=== PATIENT | male | born 1955 | race Caucasian/White ===

== ENCOUNTER 2016-08-01 19:15 | Observation (INO) | payer MEDICAID, OTHER ==
[~2016-08-01] VITALS: Ht 177.8 cm; Wt 79.9 kg
[~2016-08-01 19:15] MED LIST: ASPI325T32 PO; CARV3.122 PO; CEFD300C3 PO; FUR20 PO; LISI-571 PO; POTA20TA16 PO
[2016-08-01 19:20] VITALS: BP 132/103; PULSE 100; RESP 22; O2SAT 95
--- NOTE | 2016-08-01 19:21 | ED.REPORT ---
HPI-Chest Pain 40 and Over Date of Service Aug 01, 2016 ED Provider: Newton Winslow DO 60 year old male with a history of non-ischemic cardiomyopathy, CHF, and methamphetamine presents to the ED escorted by [facility] to be declared fit for longterm complaining of SOB and chest pain onset just prior to arrival. Symptoms onset after climbing a set of stairs at the longterm. Officer reports that the longterm nurse noticed elevated blood pressure in the 130/ range while examining the patient. Patient admits that he has been out of his medications for several weeks. Nursing Notes Stated Complaint: FIT FOR HALFWAY Chief Complaint: Chest Pain Nursing Notes Reviewed: Yes Allergies: Coded Allergies: No Known Allergies (Unverified Allergy, Unknown, 08/01/16) Scheduled Aspirin (Aspirin) 325 Mg Tablet 325 MG PO DAILY Carvedilol (Carvedilol) 3.125 Mg Tablet 3.125 MG PO BIDWM Cefdinir (Cefdinir) 300 Mg Capsule 300 MG PO BID Furosemide (Furosemide) 20 Mg Tab 20 MG PO DAILY Lisinopril (Lisinopril) 5 Mg Tablet 2.5 MG PO DAILY Potassium Chloride (Potassium Chloride) 20 Meq Tab.er.prt 20 MEQ PO DAILY General Time Seen by MD: 19:20 Chief Complaint Shortness of breath Hx Obtained From: Patient, Police Arrived By: Police Sudden in Onset?: Yes Onset Occurred: Just prior to arrival Symptom Duration: Since onset Associated with: Denies: Fatigue, Fever, Nausea, Vomiting Pertinent Negative: Pt denies other symptoms Context Related History: Reports: Congestive heart failure Similar Sx Previous: No Past Medical History Past Medical History Non-ischemic cardiomyopathy Reports: Congestive heart failure Past Surgical History 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 Smoking History Former Smoker Social History Alcohol Use: Denies alcohol use Drug Use: Meth Review of Systems Constitutional: Denies: Chills, Fever Respiratory: Reports: Shortness of breath, Denies: Non-productive cough Cardiovascular: Denies: Chest pain GI: Denies: Abdominal pain, Diarrhea, Nausea, Vomiting Skin: Denies Diaphoresis Complete sys rev & neg: except as marked. Physical Exam Initial Vital Signs Vital Signs (First) Date Time Temp Pulse Resp B/P Pulse Ox O2 Delivery O2 Flow Rate FiO2 08/01/16 19:20 36.0 100 22 132/103 95 Room Air Initial VS: Reviewed Head / Eyes: Atraumatic, Normocephalic Neck: Supple, Non-tender, Full range of motion Extremities: Vascular intact, Neuro intact, No swelling, No tenderness Skin: Warm, Dry, No cyanosis Neurologic: Alert, Oriented, Nonfocal General/Constitutional: Awake, Alert, Well developed, Well nourished Respiratory / Chest: Breath sounds NL, Breath sounds = bilat, No respiratory distress, No rales, No rhonchi, No wheezing, No stridor, No chest tenderness Cardiovascular: Heart rate NL, Regular rhythm, Heart sounds NL, No murmurs, Peripheral circulation NL, Pulses = bilaterally, No gross BP differential Abdomen: Soft, Non-tender, No guarding, No rebound, No distention Interpretation & Diagnostics Lab Results Interpretation Result Diagram: 08/01/16192708/01/161927 Test 08/01/16 19:28 White Blood Count 7.8th/mm3 (3.8-10.1) Red Blood Count 4.82mil/mm3 (4.40-5.80) Hemoglobin 15.8g/dL (13.8-17.2) Hematocrit 46.0% (41.0-50.0) Mean Corpuscular Volume 95.4fL (81-100) Mean Corpuscular Hemoglobin 32.8pg (27.0-35.0) Mean Corpuscular Hemoglobin Concent 34.3% (32.0-37.0) Red Cell Distribution Width 13.7% (12.3-15.4) Platelet Count 323bil/L (150-400) Neutrophils (%) (Auto) 43.5% (40-74) Lymphocytes (%) (Auto) 35.8% (14-46) Monocytes (%) (Auto) 14.2% (4-12) Eosinophils (%) (Auto) 4.9% (0-5) Basophils (%) (Auto) 1.2% (0-3) Sodium Level 138mEq/L (134-144) Potassium Level 4.0mEq/L (3.5-5.2) Chloride Level 103mEq/L (97-108) Carbon Dioxide Level 21mmol/L (18-29) Blood Urea Nitrogen 14mg/dL (6-24) Creatinine 0.86mg/dL (0.76-1.27) Estimat Glomerular Filtration Rate 97mL/min (>59) Glucose Level 142mg/dL (60-99) Calcium Level 8.7mg/dL (8.5-10.1) Magnesium Level 1.8mg/dL (1.6-2.6) Total Bilirubin 1.0mg/dL (0.0-1.2) Aspartate Amino Transf (AST/SGOT) 119U/L (0-50) Alanine Aminotransferase (ALT/SGPT) 106U/L (0-44) Alkaline Phosphatase 106U/L (25-160) Troponin T 0.024ug/L (0.0-0.011) Pro-B-Type Natriuretic Peptide 7445pg/mL (0-210) Total Protein 7.3g/dL (6.4-8.4) Albumin 3.2g/dL (3.4-5.0) ECG Interpretation ECG Interpretation: Significant LVH with strain pattern Anterior ST elevation as present on prior ECG's Time: 19:29 Interpreted by: ED physician CBC Interpretation CBC normal Cardiac / Vascular Lab Interp Cardiac markers abnormal X-Ray Chest Interpretation Chest Xray Interpretation: IMPRESSION: Recurrent or persistent left lower lobe disease currently with minimal amount of effusion and infiltrate consistent with pneumonia. Dictated by: Pasquale Leigh M.D. on 08/01/2016 at 19:55 Approved by: Pasquale Leigh M.D. on 08/01/2016 at 19:55 View: Portable, 1 view Interpretation / Wet Read by: Interpret - Radiologist Re-Eval/Medical Decision Med Decision/Clinical Course 60-year-old male with a history of cardiomyopathy, noncompliance and methamphetamine abuse presents with exertional dyspnea and chest pain. He was arrested today. He had to climb about 30 stairs to get up to the longterm cell. When he got to the top is very short of breath and some chest tightness. An officer brought him in to be cleared for longterm. His pain had resolved prior to presentation although she was mildly short of breath. On examination he appears chronically ill but in no distress. I do not appreciate crackles or JVD. No overt signs of heart failure. EKG does not look normal at all however is unchanged from prior EKGs. Again he is not having any pain at this time so I will not pull the trigger on cathing him. He states he would not want to be cathed anyways. laboratory work showed an elevated troponin. Looks like he was discharged with a normal troponin while back. Taking this and account we will admit him for rule out. As it were he has not been on his medications for the last 2 weeks most likely oro this is playing a role. He was given nitroglycerin aspirin and Lovenox in the ED. He was admitted in stable condition pain free. Source of Hx: Old records Time of Eval: 20:47 Re-Evaluation/Progress Note: Patient is pain free. Discussed lab and radiology results and need to admit. Patient understands and agrees to the plan. All other questions addressed. Consultation : Referral / Consult Name: Barbara Jameson MD Consulted With: Hospitalist Call Returned at: 20:45 Boxcar Weigher: Agrees with eval, Agrees with plan, Accepts admit Counseled Regarding: Diagnosis, Lab results, Need for admission Discharge & Departure Primary Impression: Chest pain Chest pain type: chest pain due to myocardial ischemia Qualified Code: I20.9 - Angina pectoris, unspecified Additional Impressions: Shortness of breath Elevated troponin Disposition: ADMITTED TO HOSPITAL Discharge Condition All VS Reviewed: Yes Condition: Stable Referrals: NOPCP (PCP) Scribe Attestation Portions of this note were transcribed by Mahamed Velazquez. I, Dr. Winslow, personally performed the history, physical exam and medical decision-making; I reviewed and confirmed the accuracy of the information in the transcribed note. Signed by: Mahamed Velazquez. 08/01/2016, 20:50 Newton Winslow DO Aug 01, 2016 19:21 MAHAMED VELAZQUEZ Aug 01, 2016 19:32
[2016-08-01 19:47] LABS: BASOPHILS % (AUTO) 1.2 % (0-3); EOSINOPHILS % (AUTO) 4.9 % (0-5); MONOCYTES % (AUTO) 14.2 % (4-12); Mean Corpuscular Hemoglobin 32.8 pg (27.0-35.0); Mean Corpuscular Volume 95.4 fL (81-100); NEUTROPHILS % (AUTO) 43.5 % (40-74); Platelet Count 323 bil/L (150-400)
--- NOTE | 2016-08-01 19:57 | DRSVH ---
PROCEDURE: X-RAY CHEST ONE VIEW, PORTABLE ([id number]) INDICATIONS: dyspnea TECHNIQUE: One view of the chest was acquired. COMPARISON: [facility], CR, XR CHEST 2VW, 04/29/2016, 9:49. FINDINGS: Surgical changes and devices: playground monitor leads are seen over the chest. Lungs and pleura: The right lung is clear. The left lung shows improved but persistent abnormality at the left base or recurrent infiltrate and small effusion. Left upper lung is clear. Mediastinum: Mediastinal contours appear normal. Heart size is normal. Bones and chest wall: No suspicious bony lesions. Overlying soft tissues appear unremarkable. IMPRESSION: Recurrent or persistent left lower lobe disease currently with minimal amount of effusion and infiltrate consistent with pneumonia. Dictated by: Pasquale Leigh M.D. on 08/01/2016 at 19:55 Approved by: Pasquale Leigh M.D. on 08/01/2016 at 19:55
[2016-08-01 20:09] LABS: TROPONIN T 0.024 ug/L (0.0-0.011)
[2016-08-01 20:21] LABS: Magnesium 1.8 mg/dL (1.6-2.6)
[2016-08-01] MEDS ORDERED: Nitroglycerin 2% 1 Gm Ointment TOPICAL ONE (20:40)
[2016-08-01 20:51] VITALS: BP 130/112; PULSE 97; RESP 22; O2SAT 94
[2016-08-01] MEDS ORDERED: Ondansetron 2 mg/mL 2 mL Inj IVPUSH PRN (21:10)
[2016-08-01] MEDS ORDERED: Alum-Mag Hydrox-Simeth 30 mL Suspension PO PRN (21:10)
[2016-08-01] MEDS ORDERED: Atropine 1 mg/10 mL (Code) Syringe IVPUSH PRN (21:10)
[2016-08-01] MEDS ORDERED: Senna-Docusate 8.6-50 mg Tablet PO PRN (21:10)
[2016-08-01] MEDS ORDERED: Polyethylene Glycol (PEG) 17 Gm Powder PO PRN (21:10)
[2016-08-01 21:15] VITALS: BP 125/95; PULSE 90; RESP 16; O2SAT 95
[2016-08-01 21:44] VITALS: BP 133/91; PULSE 93; RESP 20; O2SAT 98
[2016-08-01] MEDS ORDERED: Furosemide 10 mg/mL 2 mL Inj IVPUSH ONE (22:40)
--- NOTE | 2016-08-01 22:41 | PCM.HPMED ---
Subjective Date of Service Aug 01, 2016 Primary Provider: Admitting Physician: Primary Care Physician: Hernandez Attending Physician: Chief Complaint: Chest pain History of Present Illness: 60 year old with hx of hepatitis C, chronic chf with mod-severe reduced EF, 50 pack year hx of smoking, and hx of methamphetamine abuse presents to ED due to acute substernal chest pain and dyspnea without radiation. Pt was being processed into the local senior care and states that after he climbed 20 stairs he had a mod-severe chest pain with lightheadedness, dizziness, and cold sweat. Pt has never experienced this pain and reports that he has not been taking his home medications as he ran out of them a few months back. Pt is unable to identify exactly when he ran out of his medications. On arrival in the ED he was given nitro and aspirin which relieved the pain. CXR was suspicious for LLL consolidation without effusion and pt does report some recent cough with sputum. He also describes increasing orthopnea and frequent episodes of PND. Pt denies other ROS including fever, night sweats, chills, or general malaise. His last appointment for cardiology was with Dr Chou in October 2014. His most recent ECHO was when he was admitted in April 2016 for CHF exacerbation; EF= 20-25%. He has not been taking his Hepatitis medications. There is no record in Pending sale to [facility] for office appointments with Dr. Hickman. Review of Systems: Complete review of systems performed. Pertinent positives and negatives per HPI , all others reviewed and are negative. Allergies Coded Allergies: No Known Allergies (Unverified Allergy, Unknown, 08/01/16) Home Medications Aspirin (Aspirin) 325 Mg Tablet 325 MG PO DAILY Carvedilol (Carvedilol) 3.125 Mg Tablet 3.125 MG PO BIDWM Cefdinir (Cefdinir) 300 Mg Capsule 300 MG PO BID Furosemide (Furosemide) 20 Mg Tab 20 MG PO DAILY Lisinopril (Lisinopril) 5 Mg Tablet 2.5 MG PO DAILY Potassium Chloride (Potassium Chloride) 20 Meq Tab.er.prt 20 MEQ PO DAILY Pt was started on Aldactone and 2 years ago by cardiology but unsure if he ever took it PMH Cardiomyopathy, unspecified Hepatitis C Methamphetamine abuse Chronic systolic CHF Family History Grandfather of [place] at age of 80 Social History Hx Alcohol Use: Yes Alcoholic Drinks Per Day: Pt states it is not everyday but does not define it Hx Substance Use: Yes (h/o methamphetamine use ) Hx Tobacco Use: Yes Smoking Status: Former Smoker (35-40 years at 1.5 ppd) Exam Vital Signs Vital Sign - Last Date Time Temp Pulse Resp B/P Pulse Ox O2 Delivery O2 Flow Rate FiO2 08/01/16 20:51 97 22 130/112 94 Room Air 08/01/16 19:20 36.0 Exam General: No acute distress; flat affect HEENT: Normocephalic, atraumatic. PERRLA Anicteric sclerae Neck: Supple with full range of motion. No jugular venous distension. No bruits. No lymphadenopathy or thyromegaly. Cardiovascular: Tachy without murmur; radial pulses intact; difficult to posterior tibial Pulmonary: Course breath sounds with diffuse crackles and very mild inspiratory wheezing Abdomen: Bowel tones present. Soft, nontender, nondistended Extremities: Clubbing on all fingers bilaterally, no edema, or lymphadenopathy appreciated. Skin: Normal temperature, mild decrease in turgor Neurological: CN 2-12 intact, sensation normal throughout; muscle strength 5/5 , Psychiatric: flat mood and affect. Alert and oriented to person, place, and time. Lab and Diagnostics Result Diagram: 08/01/16192708/01/161927 X-Rays, CTs and MRIs Chest X-ray IMPRESSION: Recurrent or persistent left lower lobe disease currently with minimal amount of effusion and infiltrate consistent with pneumonia. Dictated by: Pasquale Leigh M.D. on 08/01/2016 at 19:55 12-lead ECG Apparent Left ventricular hypertrophy; ST elevations in anterior leads, not changed from previous EKG Assessment & Plan 60 year old male with cardiomyopathy and severely reduced EF Possible acute NSTEMI; present on admission; ongoing - Presenting with classic substernal chest pain with diaphoresis and dizziness but without left arm radiation - Trend troponin and check CKMB; Mg phos etc are normal - Pt already received Lovenox in ED - Starting on heparin drip pending confirmation with second trop - ECHO tomorrow - Aspirin received in ED - Carvedilol home dose started - Lisinopril started - Nitro paste in place with sublingual for additional discomfort - EKG in AM - Currently on O2 via Nasal canula - Recheck BMP tomorrow morning Possible Acute on Chronic systolic heart failure: present on admission; ongoing - BNP elevated above last with normal kidney function; however, pt looks slightly dry on examination with decreased skin turgor; mod-severe clubbing of the fingernails - Last EF was 20-25% - CXR looks surprisingly clear as he has not been taking his meds, including two diuretics; no cephalization or diffuse edema present - No edema in lower extremities or JVD - Restarting lisinopril, carvedilol, and pending BP after these meds are started , also recommend restarting Aldactone - Aspirin started for #1; - ECHO tomorrow morning - Cautious diuretics with 20mg IV Lasix tonight Hx of Hepatitis C with acute on chronic transaminitis - Pt states he contracted this from a transfusion a number of years ago - Consider ID consult in AM - Ordering viral load for HepC - Will lightly consider US with liver protocol - CMP in am Acute Hypertension; present on admission; ongoing - On exam BP was 133/100; given antihypertensives as above; will reassess in a couple hours Hyperglycemia - Likely due to non fasting as there is no record of diabetes - A1c pending - Heart healthy/diabetic diet Questionable pneumonia - Pt does not have a white count, left shift, or fever; he is tachy and intermittently dyspneic which I do not believe is related to an infection but rather his chest pain - Pt does have a chronic cough which sounds to be related to his CHF - Consider starting abx if fever or wbc change or there is some hint at infection - Repeat CBC in am Hx of methamphetamine abuse - States that he has not used in many years. He quit before he quit smoking, which was 5 years ago Dispo: This patient is being admitted to general medical floor for observation due to chest pain described above; anticipated stay is < 2 midnights but could be longer pending diagnostics tomorrow Attending Statement Pt seen and examined by myself and agree with above plan. Joesph Gonzáles DO Aug 01, 2016 22:41 Barbara Jameson MD Aug 02, 2016 18:51
[2016-08-01] MEDS: Sodium Chloride LOK Flush 10 mL Syringe IVFLUSH SCH (23:21)
[2016-08-02] VITALS (9 sets, daily range): BP systolic 112–133; BP diastolic 73–88; PULSE 73–114; RESP 16–20; O2SAT 96–99
[2016-08-02 01:34] LABS: COLOR,URINE YELLOW (YELLOW)
[2016-08-02 01:35] LABS: APPEARANCE,URINE CLEAR (CLEAR,HAZY); OCCULT BLOOD,URINE NEGATIVE (NEGATIVE)
[2016-08-02 05:39] LABS: EOSINOPHILS % (AUTO) 6.4 % (0-5); MONOCYTES % (AUTO) 10.6 % (4-12); Mean Corpuscular Hemoglobin 33.1 pg (27.0-35.0); Mean Corpuscular Volume 95.6 fL (81-100); NEUTROPHILS % (AUTO) 31.7 % (40-74)
[2016-08-02 06:04] LABS: Platelet Count 297 bil/L (150-400)
[2016-08-02 06:45] LABS: Magnesium 1.7 mg/dL (1.6-2.6)
[2016-08-02] MEDS: Sodium Chloride LOK Flush 10 mL Syringe IVFLUSH SCH ×3 (09:25→19:58)
--- NOTE | 2016-08-02 14:55 | PCM.PNMED ---
Subjective Date of Service Aug 02, 2016 Subjective Patient seen and examined. Patient does not have any complaints, patients chest pain has resolved and patient is resting comfortably. Exam Vital Signs Vital Sign - Last Date Time Temp Pulse Resp B/P Pulse Ox O2 Delivery O2 Flow Rate FiO2 08/02/16 14:23 36.6 78 18 123/73 96 Nasal Cannula 2.00 Intake and Output 08/01/16 08/01/16 08/02/16 Cumulative From/Thru 15:00 23:00 07:00 08/01/16 19:20 - 08/02/16 06:17 Intake Total 625 ml 625 ml Output Total 850 ml 850 ml Balance -225 ml -225 ml Intake Oral 625 ml 625 ml Output Urine Total 850 ml 850 ml # Bowel Movements 0 0 Lab and Diagnostics Result Diagram: 08/02/1615 08/02/16 0515 X-Rays, CTs and MRIs Chest X-ray IMPRESSION: Recurrent or persistent left lower lobe disease currently with minimal amount of effusion and infiltrate consistent with pneumonia. Dictated by: Pasquale Leigh M.D. on 08/01/2016 at 19:55 12-lead ECG Apparent Left ventricular hypertrophy; ST elevations in anterior leads, not changed from previous EKG Assessment & Plan 60 year old male with cardiomyopathy and severely reduced EF Possible acute NSTEMI; present on admission; ongoing - Presenting with classic substernal chest pain with diaphoresis and dizziness but without left arm radiation - Trend troponin and check CKMB; Mg phos etc are normal - Pt already received Lovenox in ED - ECHO tomorrow - Aspirin received in ED - Carvedilol home dose started - Lisinopril started - Nitro paste in place with sublingual for additional discomfort - EKG in AM - Currently on O2 via Nasal canula - Recheck BMP tomorrow morning Possible Acute on Chronic systolic heart failure: present on admission; ongoing - BNP elevated above last with normal kidney function; however, pt looks slightly dry on examination with decreased skin turgor; mod-severe clubbing of the fingernails - Last EF was 20-25% - CXR looks surprisingly clear as he has not been taking his meds, including two diuretics; no cephalization or diffuse edema present - No edema in lower extremities or JVD - Restarting lisinopril, carvedilol, and pending BP after these meds are started , also recommend restarting Aldactone - Aspirin started for #1; - ECHO tomorrow morning - Cautious diuretics with 20mg IV Lasix tonight Hx of Hepatitis C with acute on chronic transaminitis - Pt states he contracted this from a transfusion a number of years ago - Consider ID consult in AM - Ordering viral load for HepC - Will lightly consider US with liver protocol - CMP in am Acute Hypertension; present on admission; ongoing - On exam BP was 133/100; given antihypertensives as above; will reassess in a couple hours Hyperglycemia - Likely due to non fasting as there is no record of diabetes - A1c pending - Heart healthy/diabetic diet Questionable pneumonia - Pt does not have a white count, left shift, or fever; he is tachy and intermittently dyspneic which I do not believe is related to an infection but rather his chest pain - Pt does have a chronic cough which sounds to be related to his CHF - Consider starting abx if fever or wbc change or there is some hint at infection - Repeat CBC in am Hx of methamphetamine abuse - States that he has not used in many years. He quit before he quit smoking, which was 5 years ago Dispo: This patient is being admitted to general medical floor for observation due to chest pain described above; anticipated stay is < 2 midnights but could be longer pending diagnostics tomorrow Josh Woodard MD Aug 02, 2016 14:55
--- NOTE | 2016-08-02 15:23 | NUR ---
Social Work Screening D: EMR Reviewed. Pt is a 60Y old male Armond for Dyspnea/Positive Troponin. Insurance is [facility]. No PCP listed. Readmission score 5/8-High. Per EMR Pt was being processed at [facility] when he experienced chest pain and was transport to [facility]. Pt has a hx of methamphetamine use but has been clean for over 5 years. Pt discussed in Rounds. Pt also has CHF. HITESH text paged Hospitalist requesting referral to the CHF clinic. HITESH met with Pt at bedside, SW role explained. Pt confirms he does not have a PCP but is open to establishing care at the [facility] in [place]. Pt confirms he has been clean and sober for over 5 years. Pt denies any needs. Pt reports he will return home at discharge. HITESH contacted CM Siderographer and requested appointment be scheduled at the [facility] in [place] for hospital follow up and an establishing care appointment A: Pt who is independent at baseline P: Pt denies any needs. Pt reports he will return home at discharge. HITESH contacted CM Siderographer and requested appointment be scheduled at the [facility] in [place] for hospital follow up and an establishing care appointment YUAN Harrell
--- NOTE | 2016-08-02 16:10 | DRSVH ---
[facility] [address] [place] [address] Echocardiogram Report Name: TODD VASQUES JStudy Date: 08/02/2016 Height: 70 in Hospital Exam Location: [facility] Weight: 168 lb Gender: Male BSA: 1.9 m2 : 1955 Age: 60 yrs BP: 127/78 mmHg Reason For Study: CHEST PAIN Ordering Physician: Performed By: Josh Smith Interpretation Summary The left ventricle is markedly dilated. The ejection fraction is estimated to be 20-25%. There has been no significant change in LV EF since the previous study. There is severe global hypokinesis of the left ventricle. Spontaneous contrast is noted consistent with low flow state. Assessment of diastolic parameters indicates a restrictive filling pattern of the left ventricle consistent with significantly elevated filling pressures. The right ventricle is normal size. Right ventricular systolic function is mildly reduced. There is moderate mitral regurgitation. Compared to the prior echo study, there has been an increase in the severity of mitral regurgitation. There is mild tricuspid regurgitation. Compared to the prior echo exam, there has been no change in TR severity. The right ventricular systolic pressure is estimated at 34 mmHg assuming a right atrial pressure of 3 mm Hg. Procedure: A two-dimensional transthoracic echocardiogram with color flow and Doppler was performed. The study quality was technically good. There is no prior echocardiogram noted for this patient. The patient was in normal sinus rhythm during the exam. Left Ventricle: There is normal left ventricular wall thickness. The left ventricle is markedly dilated. There has been no significant change since the previous study. There is no thrombus. A false chord is noted (normal variant). Spontaneous contrast is noted consistent with low flow state. The ejection fraction is estimated to be 20-25%. There has been no significant change since the previous study. There is severe global hypokinesis of the left ventricle. Assessment of diastolic parameters indicates a restrictive filling pattern of the left ventricle consistent with significantly elevated filling pressures. The E/E' ratio is abnormal. The deceleration time of the mitral E wave is shortened, with a value < 160 msec. Right Ventricle: The right ventricle is normal size. Right ventricular systolic function is mildly reduced. Atria: The left atrium is severely dilated. The left atrium has remained unchanged in size since the prior echo exam. The right atrium is mildly dilated. The right atrium has remained unchanged in size since the prior echo exam. The interatrial septum is intact with no evidence for an atrial septal defect. Mitral Valve: The mitral valve leaflets are slightly calcified. There is moderate mitral regurgitation. Compared to the prior echo study, there has been an increase in the severity of mitral regurgitation. Aortic Valve: The aortic valve is trileaflet. The aortic valve opens well. There is no aortic valve stenosis. No aortic regurgitation is present. Tricuspid Valve: The tricuspid valve is normal. There is mild tricuspid regurgitation. The right ventricular systolic pressure is estimated at 34 mmHg assuming a right atrial pressure of 3 mm Hg. Compared to the prior echo exam, there has been no change in TR severity. Compared to the prior echo exam, there has been no change in the severity of pulmonary hypertension. Pulmonic Valve: The pulmonic valve is normal in structure and function. There is trace pulmonic regurgitation. Great Vessels: The aortic root is normal size. The dimensions of the ascending aorta are normal. The pulmonary artery is normal size. The IVC is of normal diameter and collapses greater than 50% with a sniff. This suggests a low right atrial pressure of 3 mm Hg. Pericardium/ Pleura There is no pericardial effusion. There is no pleural effusion. MMode/2D Measurements & Calculations LVIDd: 8.0 cmLA dimension: 4.6 cm RA long axis: 5.1 cm Ao root diam: 3.2 cm LVIDs: 7.1 cm Aortic Jxn: 2.4 cm FS: 11.0 % LA A2 area: 39.6 cm RA area: 21.9 cm asc Aorta Diam EPSS: 1.9 cm LA A4 area: 32.5 cm RA vol: 79.1 ml IVSd: 0.88 cmLA length (vol) RA : 40.8 ml/m2 Ao Arch Diam LVPWd (Proximal trans.) : 0.9cm LA vol: 143.1 ml LA vol index IVC diam: 2.0 cm EDV(MOD-sp2) LV gonsalves. diameter/BSA LV sys. diameter/BSA RVD1 (basal): 4.0 cm : 267.3 ml (cm/m^2): 4.1 (cm/m^2): 3.7 RVD2 (mid) : 3.4 cm Doppler Measurements & Calculations Ao V2 max MV E max marshall MV E/A: 2.6 TR max marshall : 124.9 cm/sec : 90.9 cm/sec Med Peak E' Marshall : 277.0 cm/sec Ao max PG MV A max marshall TR max PG : 6.2 mmHg : 35.5 cm/sec E/E' med: 18.7 : 30.7 mmHg Ao mean PG MV A dur: 0.16 sec PA V2 max : 3.8 mmHg : 72.4 cm/sec PA mean PG PA Accel Time : 0.09 sec MV dec time Ao V2 mean PA V2 mean : 0.11 sec : 94.3 cm/sec : 53.3 cm/sec Ao V2 VTI: 19.5 cm PA pr(Accel) : 35.7 mmHg Reading Physician:PM
--- NOTE | 2016-08-02 18:49 | NUR ---
ECHO/EKG P-[facility] I- ECHO and EKG done today E- ECHO showed EJ of 20-25%. EKG SR 74, LLB, PVC's
[2016-08-03 00:25] VITALS: BP 107/79; PULSE 88; RESP 17; O2SAT 97
[2016-08-03 05:12] VITALS: BP 118/77; PULSE 85; RESP 17; O2SAT 96
--- NOTE | 2016-08-03 07:33 | NUR ---
Cardiac Pt denies CP. C/O SOB. SPO2 mid-high 90s. No S/Sx distress noted. Pt sleeping most of the shift. No overt complications noted.
[2016-08-03 08:00] VITALS: PULSE 80
[2016-08-03] MEDS: Sodium Chloride LOK Flush 10 mL Syringe IVFLUSH SCH (08:28)
[2016-08-03 10:21] VITALS: BP 105/69; PULSE 71; RESP 18; O2SAT 95
--- NOTE | 2016-08-03 12:27 | PCM.DICHF ---
CHF Discharge Instructions Date of Service: Aug 01, 2016 Dates of Hospitalization Date of Hospital Admission Aug 01, 2016 at 21:23 Date of Discharge: Aug 03, 2016 Providers Admitting Physician: Barbara Jameson MD Primary Care Physician: Hernandez Attending Physician: Barbara Jameson MD Diagnosis at Time of Discharge Diagnosis at time of discharge chest pain Problems: Labs Ejection Fraction Laboratory Tests Test Range/Units 08/01/16 19:28 08/02/16 05:15 08/02/16 19:49 Pro-B-Type Natriuretic Peptide 0-210 pg/mL 7445 Sodium Level 134-144 mEq/L 136 Potassium Level 3.5-5.2 mEq/L 4.1 Chloride Level 97-108 mEq/L 101 Carbon Dioxide Level 18-29 mmol/L 23 Blood Urea Nitrogen 6-24 mg/dL 14 Creatinine 0.76-1.27 mg/dL 0.70 Estimat Glomerular Filtration Rate >59 mL/min 123 Glucose Level 60-99 mg/dL 124 Calcium Level 8.5-10.1 mg/dL 8.3 Magnesium Level 1.6-2.6 mg/dL 1.7 Total Bilirubin 0.0-1.2 mg/dL 0.8 Aspartate Amino Transf (AST/SGOT) 0-50 U/L 96 Alanine Aminotransferase (ALT/SGPT) 0-44 U/L 87 Alkaline Phosphatase 25-160 U/L 104 Total Creatine Kinase 21-232 U/L 125 Creatine Kinase MB 0.0-10.4 ng/mL 6.6 Creatine Kinase MB % 0.0-5.0 % 5.3 Total Protein 6.4-8.4 g/dL 6.3 Albumin 3.4-5.0 g/dL 2.8 Triglycerides Level 0-149 mg/dL 76 Cholesterol Level 100-199 mg/dL 155 LDL Cholesterol, Calculated 0-99 mg/dL 56.800 VLDL Cholesterol mg/dL 15.200 HDL Cholesterol >39 mg/dL 83 Cholesterol/HDL Ratio 0.0-4.4 1.87 Thyroid Stimulating Hormone (TSH) 0.450-4.500 uIU/mL 2.830 Troponin T 0.0-0.011 ug/L 0.024 Discharge Medications Other Medication Instructions You have received instructions on the medications your physician has prescribed at discharge. A list of these medications has been provided to you. Keep this and a list of all current medications with you. Keep the dates when you received the Flu and Pneumococcal (Pneumonia) Vaccines. Last known date of receiving Flu Vaccine declines Last known date of receiving Pneumococcal (Pneumonia) Vaccine denies Diet CHF Discharge Diet: Fluid restriction, Low fat, Low Sodium Diet Instructions CHF Low Salt diet ( 2 grams or less sodium/day) Choose foods and drinks with low or no salt. Remove salt shaker from the table. Read Nutritional Facts labels. Activity CHF Discharge Activity: Be up and about Weight Monitoring 1. Weigh yourself every day at the same time and write it down. 2. Take your weight log to your doctor visits. 3. Call your doctor if you gain 3-5 pounds over 2-3 days. 4. Your weight today is 176.15 lbs. Additional Instructions Smoking--Tobacco Use If you smoke, you are strongly encouraged to stop. If you have recently quit smoking, CONGRATULATIONS. For further information to stop smoking or to remain smoke-free, Follow Up Plan Follow Up Plan You will need to follow up with a doctor after you leave the hospital. Social work is giving you possibilities of doctors that you can follow up with. Cardiology Follow-up Provider: 1 week Report or call your Doctor REPORT TO YOUR DOCTOR OR SEEK MEDICAL ATTENTION: *Shortness of breath or have more difficulty breathing. *Swelling of your feet, ankles, hands or abdomen. *Feeling tired with normal activity or experiencing dizziness or fainting. *Trouble sleeping or waking up feeling short of breath or coughing. *Chest pain or pressure. *Weight gain of 3-5 pounds over 2-3 days. *Inability to take medications or follow treatment plan Heart Attach warning signs HEART ATTACK WARNING SIGNS * Chest discomfort. *Discomfort or pain in one or both arms, back, neck, jaw or stomach. *Shortness of breath. *Breaking out in a cold sweat, nausea, or lightheadedness. If you're having heart attack warning signs: CALL . DON'T WAIT MORE THAN A FEW MINUTES - 5 MINUTES AT MOST - TO CALL . Josh Woodard MD Aug 03, 2016 12:27
[2016-08-03] MEDS ORDERED: ASPI81TA3 PO (12:29)
--- NOTE | 2016-08-03 12:35 | NUR ---
Called and attempted patient for follow up at [facility] [place] and patient has been consistent in no show to his appointments. Patient will need to call and schedule on his own if possible or potentially decide on different doctor. Updated [employer]
--- NOTE | 2016-08-03 14:13 | NUR ---
Social Work Discharge D: EMR Reviewed. Pt is on day 2 of hospitalization. Pt is medically stable and discharging home via POV with no needs. CHF Clinic order made in [facility] for Pt to be followed as an Oupt. CM High Pressure Firer attempted to schedule Pt for hospital follow up at [facility] but was unable to do so. Pt has been a no show numerous times. The clinic requests that the Pt call himself to schedule the appointment. SW updated RN and MD who will speak with Pt about the importance of making and keeping an appointment. No other needs identified. A: Pt who is independent at baseline P: Pt is medically stable and discharging home via POV. No discharge needs identified. Pt will need to schedule at [facility] on his own as he has been a no show to appointments in the past. YUAN Harrell
--- NOTE | 2016-08-03 14:41 | NUR ---
Discharge note- Denies chest pain or shortness of breath.Discharged to home with and personal belongings.
--- NOTE | 2016-08-18 15:07 | PCM.DC.CAR ---
Discharge Summary Date of Service Aug 18, 2016 Date of Hospital Admission Aug 01, 2016 at 21:23 Date of Discharge: Aug 03, 2016 Providers: Admitting Physician: Barbara Jameson MD Primary Care Physician: Hernandez Attending Physician: Barbara Jameson MD Diagnosis at Time of Discharge chest pain Problems: (1) COPD with exacerbation Status: Chronic ICD Code: J44.1 (2) Shortness of breath Status: Chronic ICD Code: R06.02 (3) Acute exacerbation of congestive heart failure Status: Chronic ICD Code: I50.9 Brief History and Physical: 60 year old with hx of hepatitis C, chronic chf with mod-severe reduced EF, 50 pack year hx of smoking, and hx of methamphetamine abuse presents to ED due to acute substernal chest pain and dyspnea without radiation. Pt was being processed into the local [facility] and states that after he climbed 20 stairs he had a mod-severe chest pain with lightheadedness, dizziness, and cold sweat. Pt has never experienced this pain and reports that he has not been taking his home medications as he ran out of them a few months back. Pt is unable to identify exactly when he ran out of his medications. On arrival in the ED he was given nitro and aspirin which relieved the pain. CXR was suspicious for LLL consolidation without effusion and pt does report some recent cough with sputum. He also describes increasing orthopnea and frequent episodes of PND. Pt denies other ROS including fever, night sweats, chills, or general malaise. His last appointment for cardiology was with Dr Chou in October 2014. His most recent ECHO was when he was admitted in April 2016 for CHF exacerbation; EF= 20-25%. Hospital Course: Pt was evaluated had an echocardiogram and his cardiac enzymes were monitored. Patient was seen to have preserved cardiac function with no suggestion that the patient was having an acute infarction. Patients medications were refilled and patient was discharged to home. Discharge Medications Aspirin Chew (Aspirin Chew) 81 Mg Chew 81 MG PO DAILY Atorvastatin Calcium (Atorvastatin Calcium) 40 Mg Tablet 80 MG PO HS Carvedilol (Carvedilol) 3.125 Mg Tablet 3.125 MG PO BIDWM Clopidogrel (Clopidogrel) 75 Mg Tablet 75 MG PO DAILY Furosemide (Furosemide) 20 Mg Tab 20 MG PO BID Lisinopril (Lisinopril) 5 Mg Tablet 2.5 MG PO DAILY Potassium Chloride (Potassium Chloride) 20 Meq Tab.er.prt 20 MEQ PO DAILY Followup Plan Follow-up plan You will need to follow up with a doctor after you leave the hospital. Social work is giving you possibilities of doctors that you can follow up with. Josh Woodard MD Aug 18, 2016 15:05
== END 2016-08-03 14:30 | disposition home or self-care (01) ==
LOC: SED 19:18 → OSC 21:23
PROVIDERS: ADMIT Specialist; ATTEND Specialist
DX: R07.9 Chest pain, unspecified (principal); R06.00 Dyspnea, unspecified; R03.0 Elevated blood-pressure reading, without diagnosis of hypertension; R73.9 Hyperglycemia, unspecified; I25.5 Ischemic cardiomyopathy; F15.21 Other stimulant dependence, in remission
CPT/HCPCS: 36415; 71010; 80053; 80061; 81000; 82550; 82553; 83036; 83735; 83880; 84443; 84484; 85025; 87517; 87522; 93005; 96372; 99285; C8929; G0378; G0480; J1650; J1940

== ENCOUNTER 2016-08-08 02:29 | Inpatient (IN) | payer OTHER ==
[~2016-08-08] VITALS: Ht 177.8 cm; Wt 76.1 kg
[2016-08-08] VITALS (14 sets, daily range): BP systolic 12–123; BP diastolic 67–84; PULSE 63–93; RESP 13–32; O2SAT 92–99
[~2016-08-08 02:29] MED LIST changes: -ASPI325T32 PO; +ASPI81TA3 PO; -CEFD300C3 PO
--- NOTE | 2016-08-08 02:35 | ED.REPORT ---
HPI-General Illness Date of Service Aug 08, 2016 ED Provider: MD Audie This is a 60 year old male with a history of hepatitis C, chronic CHF with mod- severe reduced EF, and methamphetamine abuse brought to the ED by EMS complaining of substernal chest pain that began just prior to arrival. Pt also reports radiation to RUQ and dyspnea. Denies nausea, diarrhea, constipation, headache, or diaphoresis. Pt recently admitted to the hospital for CP with elevated troponin from 08/01-08/03/16, discharged with plan for cardiology follow up. Nursing Notes Stated Complaint: HOLDING CHEST Chief Complaint: Chest Pain Nursing Notes Reviewed: Yes Allergies: Coded Allergies: No Known Allergies (Verified Allergy, Unknown, 08/08/16) Scheduled Aspirin Chew (Aspirin Chew) 81 Mg Chew 81 MG PO DAILY Carvedilol (Carvedilol) 3.125 Mg Tablet 3.125 MG PO BIDWM Furosemide (Furosemide) 20 Mg Tab 20 MG PO DAILY Lisinopril (Lisinopril) 5 Mg Tablet 2.5 MG PO DAILY Potassium Chloride (Potassium Chloride) 20 Meq Tab.er.prt 20 MEQ PO DAILY General Time Seen by MD: 02:34 Chief Complaint Abdominal pain Hx Obtained From: Patient Arrived By: Ambulance Sudden in Onset?: Yes Onset Occurred: Just prior to arrival Symptom Duration: Since onset Severity: Current: Moderate Pertinent Negative: Pt denies other symptoms Recent Healthcare: No recent hospitalization Similar Sx Previous: Yes Past Medical History Past Medical History Non-ischemic cardiomyopathy Hepatitis C Methamphetamine abuse Reports: Congestive heart failure Past Surgical History 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 Smoking History Former Smoker Social History Alcohol Use: Denies alcohol use Drug Use: Meth Ambulatory Status Independent Review of Systems Full Review of Systems Constitutional: Denies: Chills, Fever Respiratory: Reports: Shortness of breath, Denies: Non-productive cough Cardiovascular: Reports: Chest pain GI: Reports: Abdominal pain, Denies: Constipation, Diarrhea, Nausea, Vomiting Neurologic: Denies: Change LOC, Headache Complete sys rev & neg: except as marked. Physical Exam Vital Signs Vital Signs Date Time Temp Pulse Resp B/P Pulse Ox O2 Delivery O2 Flow Rate FiO2 08/08/16 02:32 36.5 93 32 12/84 98 Room Air - Initial VS: Reviewed Head / Eyes: Atraumatic, Normocephalic, PERRL ENT: Mucous membranes moist, Conjunctiva normal, No scleral icterus Neck: Supple, Non-tender, Full range of motion Extremities: Vascular intact, Neuro intact, No swelling, No tenderness Skin: Warm, Dry, No cyanosis Neurologic: Alert, Oriented, Nonfocal Psychiatric: Mood/affect normal, Behavior normal, Normal thought content General/Constitutional: Awake, Alert Distress / Hydration: Positive: Distress moderate Behavior: Positive: Anxious Appearance / Presentation: Positive: Ill appearing/not toxic ENT: Pharynx NL Mouth: Positive: Mucous membranes dry Respiratory / Chest: No wheezing hyperventilating Cardiovascular: Regular rhythm, No murmurs, No rubs Tenderness/Guarding/Rebound: Positive: Tender epigastric Interpretation & Diagnostics Lab Results Interpretation Result Diagram: 08/08/16 0238 08/08/16 0238 Test 08/08/16 02:38 White Blood Count 10.0th/mm3 (3.8-10.1) Red Blood Count 4.82mil/mm3 (4.40-5.80) Hemoglobin 16.2g/dL (13.8-17.2) Hematocrit 46.2% (41.0-50.0) Mean Corpuscular Volume 95.9fL (81-100) Mean Corpuscular Hemoglobin 33.6pg (27.0-35.0) Mean Corpuscular Hemoglobin Concent 35.1% (32.0-37.0) Red Cell Distribution Width 13.8% (12.3-15.4) Platelet Count 307bil/L (150-400) Neutrophils (%) (Auto) 32.6% (40-74) Lymphocytes (%) (Auto) 45.9% (14-46) Monocytes (%) (Auto) 12.8% (4-12) Eosinophils (%) (Auto) 7.5% (0-5) Basophils (%) (Auto) 0.8% (0-3) Prothrombin Time 11.5sec (8.1-12.5) Prothromb Time International Ratio 1.07ratio Activated Partial Thromboplast Time 29.1sec (22.8-33.0) Sodium Level 133mEq/L (134-144) Potassium Level 5.0mEq/L (3.5-5.2) Chloride Level 98mEq/L (97-108) Carbon Dioxide Level 21mmol/L (18-29) Blood Urea Nitrogen 15mg/dL (6-24) Creatinine 0.83mg/dL (0.76-1.27) Estimat Glomerular Filtration Rate 101mL/min (>59) Glucose Level 110mg/dL (60-99) Calcium Level 8.5mg/dL (8.5-10.1) Magnesium Level 1.8mg/dL (1.6-2.6) Total Bilirubin 0.8mg/dL (0.0-1.2) Aspartate Amino Transf (AST/SGOT) 106U/L (0-50) Alanine Aminotransferase (ALT/SGPT) 106U/L (0-44) Alkaline Phosphatase 127U/L (25-160) Total Creatine Kinase 112U/L (21-232) Creatine Kinase MB 5.9ng/mL (0.0-10.4) Creatine Kinase MB % % (0.0-5.0) Troponin T 0.025ug/L (0.0-0.011) Pro-B-Type Natriuretic Peptide 4768pg/mL (0-210) Total Protein 7.2g/dL (6.4-8.4) Albumin 3.3g/dL (3.4-5.0) Lipase 23U/L (13-60) Hold Nicholson Top Tube Received (Received) ECG Interpretation ECG Interpretation: NSR at a rate of 93 Left atrial enlargement Lateral ischemia LVH with IVCD and secondary repolarization abnormality Time: 02:40 Interpreted by: ED physician X-Ray Chest Interpretation Interpretation / Wet Read by: Wet read ED physician NL X-Ray Chest Findings: No infiltrate Re-Eval/Medical Decision Med Decision/Clinical Course 60-year-old with recent non-STEMI presents again with chest pain and upper abdominal pain, with EKG changes consistent with lateral ischemia. Initial troponin is again elevated. During the course of his stay in the emergency department he had a brief run of nonsustained V. tach. He was asymptomatic with that. Potassium and magnesium proved to be normal. He is not required antiarrhythmics and has not had V. tach subsequent. He is transported now in fair condition to the PCU for completion of his rule in protocol. Consultation : Referral / Consult Name: Joe Wilkins MD Consulted With: Hospitalist Call Returned at: 03:08 Unit Controller: Accepts admit Counseled Regarding: Diagnosis, Lab results, Need for follow-up, Need for admission Discharge & Departure Primary Impression: Chest pain Chest pain type: unspecified Qualified Code: R07.9 - Chest pain, unspecified Additional Impressions: Non-ST elevation myocardial infarction (NSTEMI) Nonsustained ventricular tachycardia Disposition: ADMITTED TO HOSPITAL Discharge Condition All VS Reviewed: Yes Condition: Stable Referrals: NOPCP (PCP) Crit Care Except Billable Proc Time Spent: 30-74 minutes Services Performed: Patient management by me, Time spent at bedside, Reviewing test results, Reviewing imaging, Discussing patient care, Documentation in record Scribe Attestation Portions of this note were transcribed by Quoc Hernandez. I, Dr. Bronson personally performed the history, physical exam and medical decision-making; I reviewed and confirmed the accuracy of the information in the transcribed note. Signed by: chayito Cardoza. 08/07/2016, 03:00. Patrice Bronson MD Aug 08, 2016 02:35 QUOC HERNANDEZ Aug 08, 2016 02:55
[2016-08-08 02:45] LABS: BASOPHILS % (AUTO) 0.8 % (0-3); EOSINOPHILS % (AUTO) 7.5 % (0-5); MONOCYTES % (AUTO) 12.8 % (4-12); Mean Corpuscular Hemoglobin 33.6 pg (27.0-35.0); Mean Corpuscular Volume 95.9 fL (81-100); NEUTROPHILS % (AUTO) 32.6 % (40-74); Platelet Count 307 bil/L (150-400)
[2016-08-08] MEDS ORDERED: Pantoprazole 4 mg/mL 10 mL Inj IVPUSH ONE (02:45)
[2016-08-08] MEDS ORDERED: Ondansetron 2 mg/mL 2 mL Inj IVPUSH ONE (02:45)
[2016-08-08 03:08] LABS: INR 1.07 ratio
[2016-08-08 03:13] LABS: TROPONIN T 0.025 ug/L (0.0-0.011)
[2016-08-08 03:26] LABS: Magnesium 1.8 mg/dL (1.6-2.6)
[2016-08-08] MEDS ORDERED: Ondansetron 2 mg/mL 2 mL Inj IVPUSH PRN (03:35)
[2016-08-08] MEDS ORDERED: Senna-Docusate 8.6-50 mg Tablet PO PRN (03:35)
[2016-08-08] MEDS ORDERED: Polyethylene Glycol (PEG) 17 Gm Powder PO PRN (03:35)
[2016-08-08] MEDS ORDERED: Atropine 1 mg/10 mL (Code) Syringe IVPUSH PRN (03:35)
[2016-08-08] MEDS ORDERED: Alum-Mag Hydrox-Simeth 30 mL Suspension PO PRN (03:35)
[2016-08-08 04:34] LABS: Creatine Kinase 112 U/L (21-232)
[2016-08-08] MEDS: 0.9% Sodium Chloride 1,000 ML IV SCH ×3 (04:48→23:09)
[2016-08-08] MEDS: Heparin 25K Unit/500mL 0.45 NS 25,000 UNIT in IV Premix 1 EACH IV SCH (04:50)
--- NOTE | 2016-08-08 05:00 | NUR ---
Admit note. Patient was brought to the [facility] by [facility]. Patient transferred to the bed under his own power and appeared to be slightly weak. Fall precautions put in place. Patient was placed on tele, assessed, admission completed and IV fluids started. Patient start on IV NS at 80ml/hr and the cardiac heparin protocol at 600unit/hr. Patient denies pain, SOB, N/V and dizziness. Patient reports no needs at this time and requested to sleep.
--- NOTE | 2016-08-08 05:46 | PCM.HPMED ---
Subjective Date of Service Aug 08, 2016 Primary Provider: Admitting Physician: Joe Wilkins MD Primary Care Physician: Nopmary Attending Physician: Joe Wilkins MD Chief Complaint: Chest pain History of Present Illness: Amando Servin is a 60 year old with Hepatitis C, Chronic systolic heart failure with mod-severe reduced EF, smoker and prior history of methamphetamine abuse brought to [facility] emergency department by EMS complaining of substernal chest pain. Patient reported that pain began just prior to arrival. Pt also reports radiation to Right upper abdomen and dyspnea. 6/10 intensity. Similar to his chest pain that required him to be admitted recently. Denies nausea, diarrhea, constipation, headache, or diaphoresis. Denies any fever, chills or coughing. He denies any leg swelling. Pt recently admitted to the hospital for CP with elevated troponin from 08/01-08/03, discharged with plan for cardiology follow up. He was fine until yesterday morning when his symptoms started again. Review of Systems: Pertinent positives as noted in HPI. All other systems were reviewed and are negative Allergies Coded Allergies: No Known Allergies (Verified Allergy, Unknown, 08/08/16) Home Medications From recent discharge Carvedilol 3.125 mg bid Lisinopril 2.5 mg daily Aspirin 81 mg daily Lasix 20 mg daily Potassium chloride 20 Kylie daily PMH Cardiomyopathy, Non ischemic Hepatitis C Methamphetamine abuse Chronic systolic CHF . Surgical History Splenectomy Back surgery x2 Family History Grandfather of [place] at age of 80 Father- Social History Hx Alcohol Use: No Hx Substance Use: No Hx Tobacco Use: Yes Smoking Status: Former Smoker Living Arrangement: with Family Exam Vital Signs Vital Sign - Last Date Time Temp Pulse Resp B/P Pulse Ox O2 Delivery O2 Flow Rate FiO2 08/08/16 03:29 87 20 123/84 96 Room Air 08/08/16 02:32 36.5 Exam General: Alert, Oriented X3, Cooperative, No acute Distress Eyes: PERRLA, Scleral Anicteric Mouth: Mouth Normal, Mucous Membranes Moist/Coral Neck: Supple, no Thyromegaly, trachea central. Chest & Lungs: Clear to auscultation & percussion, No adventitious breath sounds, no crackles, no wheeze Cardiovascular: Normal S1, Normal S2, No Murmurs/Rubs/Gallops, Regular Rate/ Rhythm, (No JVD, no peripheral edema) Pulses: Radial (present and equal), Dorsalis Pedi (present and equal) Abdomen: Soft, Non-tender, Non-distended, Normoactive bowel tones. Musculoskeletal: Unremarkable. Normal range of motion, no swollen or erythematous joints Extremities: No edema, no cyanosis, no clubbing. Skin: No rashes. Warm and dry, no erythematous areas Neurological: Grossly neurologically intact, Normal Speech, Sensation Intact Lymphatic: Lymph nodes Cervical and Axillary not palpable. Lab and Diagnostics Labs Laboratory Tests Test 08/08/16 02:38 White Blood Count 10.0th/mm3 (3.8-10.1) Red Blood Count 4.82mil/mm3 (4.40-5.80) Hemoglobin 16.2g/dL (13.8-17.2) Hematocrit 46.2% (41.0-50.0) Mean Corpuscular Volume 95.9fL (81-100) Mean Corpuscular Hemoglobin 33.6pg (27.0-35.0) Mean Corpuscular Hemoglobin Concent 35.1% (32.0-37.0) Red Cell Distribution Width 13.8% (12.3-15.4) Platelet Count 307bil/L (150-400) Neutrophils (%) (Auto) 32.6% (40-74) Lymphocytes (%) (Auto) 45.9% (14-46) Monocytes (%) (Auto) 12.8% (4-12) Eosinophils (%) (Auto) 7.5% (0-5) Basophils (%) (Auto) 0.8% (0-3) Prothrombin Time 11.5sec (8.1-12.5) Prothromb Time International Ratio 1.07ratio Activated Partial Thromboplast Time 29.1sec (22.8-33.0) Sodium Level 133mEq/L (134-144) Potassium Level 5.0mEq/L (3.5-5.2) Chloride Level 98mEq/L (97-108) Carbon Dioxide Level 21mmol/L (18-29) Blood Urea Nitrogen 15mg/dL (6-24) Creatinine 0.83mg/dL (0.76-1.27) Estimat Glomerular Filtration Rate 101mL/min (>59) Glucose Level 110mg/dL (60-99) Calcium Level 8.5mg/dL (8.5-10.1) Magnesium Level 1.8mg/dL (1.6-2.6) Total Bilirubin 0.8mg/dL (0.0-1.2) Aspartate Amino Transf (AST/SGOT) 106U/L (0-50) Alanine Aminotransferase (ALT/SGPT) 106U/L (0-44) Alkaline Phosphatase 127U/L (25-160) Troponin T 0.025ug/L (0.0-0.011) Pro-B-Type Natriuretic Peptide 4768pg/mL (0-210) Total Protein 7.2g/dL (6.4-8.4) Albumin 3.3g/dL (3.4-5.0) Lipase 23U/L (13-60) Hold Nicholson Top Tube Received (Received) Result Diagram: 08/08/1623708/08/16237 Assessment & Plan Amando Servin is a 60 year old with Hepatitis C, Chronic systolic heart failure with mod-severe reduced EF, smoker and prior history of methamphetamine abuse brought to [facility] emergency department by EMS complaining of substernal chest pain. 1. Possible acute Non ST Elevation Myocardial Infarction; present on admission; ongoing Several risk factors for Acute Coronary syndrome with age, Congestive heart failure and smoking. Recently admitted for workup was not completed with recommendations to follow up as outpatient. - trending cardiac biomarkers - continue Heparin drip, Cardiac protocol - antiplatelets with Aspirin and Plavix (300 mg loading with 75 mg daily) - starting statin with Atorvastatin 80 mg HS - Cardiology previously recommended outpatient ischemic workup, may need Cardiac Cath this time 2. Non sustained Ventricular tachycardia. Present on admission Related to low EF 20-30% - monitor on telemetry - consider Amiodarone drip - Cardiology evaluation for AICD placement - maintain Magnesium and Potassium levels 3. Chronic systolic heart failure - BNP elevated above last with normal kidney function; however, pt looks slightly dry on examination with decreased skin turgor; mod-severe clubbing of the fingernails - Last EF was 20-25% - Restarting lisinopril and carvedilol - continue diuretics 4 Hepatitis C with acute on chronic transaminitis - Pt states he contracted this from a transfusion a number of years ago - recent Hepatitis panel recently ordered and still pending - this explains elevated transaminase levels on labs 5 History of methamphetamine abuse - States that he has not used in many years. He quit before he quit smoking, which was 5 years ago - Acetaminophen as needed for mild pain/fever/headache - Bowel regimen as needed - Antiemetic as needed Patient admitted under inpatient status with expected length of stay > 2 midnights for severity of present symptoms, complexities of treatment plan and risk for adverse event . Resuscitation Status: CPR: Attempt Resuscitation Joe Wilkins MD Aug 08, 2016 03:46
--- NOTE | 2016-08-08 08:11 | DRSVH ---
PROCEDURE: X-RAY CHEST ONE VIEW, PORTABLE ([id number]) INDICATIONS: CP TECHNIQUE: One view of the chest was acquired. COMPARISON: [facility], CR, XR CHEST 1VW (PORTABLE), 08/01/2016, 19:25. [facility], CR, XR CHEST 2VW, 04/29/2016, 9:49. FINDINGS: Surgical changes and devices: None. Lungs and pleura: No pleural effusions or pneumothorax. Lungs are abnormal with a mild left lower l obe pneumonia pattern. Mediastinum: Mediastinal contours appear normal. Heart size is at or just above the upper limits of normal. Bones and chest wall: No suspicious bony lesions. Overlying soft tissues appear unremarkable. IMPRESSION: What appears to be mild left lower lobe pneumonia is seen however this same area has been abnormal on several prior chest plain films from April of last year and earlier this month. It is possible that that area is affected by scarring rather than acute pneumonia at this time. Dictated by: Aleks Flaherty M.D. on 08/08/2016 at 8:10 Approved by: Aleks Flaherty M.D. on 08/08/2016 at 8:10
[2016-08-08] MEDS: Sodium Chloride LOK Flush 10 mL Syringe IVFLUSH SCH ×3 (08:21→23:09)
[2016-08-08 10:13] LABS: TROPONIN T 0.019 ug/L (0.0-0.011)
[2016-08-08 10:24] LABS: Creatine Kinase 78 U/L (21-232)
[2016-08-08] MEDS: Heparin Protocol Boluses IVPUSH PRN ×2 (12:04→18:01)
[2016-08-08] MEDS ORDERED: Furosemide 10 mg/mL 4 mL Inj IVPUSH ONE (15:15)
--- NOTE | 2016-08-08 19:20 | NUR ---
SOB/chest pain Throughout AM, pt on RA, lungs clear, denied any SOB or CP. In afternoon, pt was audibly wheezy and admitted to being SOB. Vitals showed O2 at 88%, BP 115/77 TELE SR 60s. Put on 5L NC O2 which brought him up to 97%, Stopped IV maintenence fluids, sat pt straight up and notified MD. Gave 40mg IV lasix per order, which improved his SOB greatly and his lungs sounded much clearer with only few faint crackles at bases. A short time later in the afternoon, pt put call light on to say he was having substernal pain/pressure in his chest. Ordered STAT EKG, gave 2mg IV morphine and notified MD. After morphine, pt's CP dissipated. Cardiac heparin gtt running per protocol. Morphine IV 2mg given again for CP around 1830. BP stayed stable, TELE SR during all events. Frequent rounding continues.
--- NOTE | 2016-08-08 19:40 | CONS ---
[address] [address] CONSULTATION REPORT PATIENT: TODD VASQUES : 1955 MR#: [id number] ADMIT: 08/08/2016 JOB ID: [id number] DATE OF SERVICE: 08/08/2016 CHIEF COMPLAINT: I was asked by the hospital team to consult on this patient given readmission for shortness of breath. HISTORY OF PRESENT ILLNESS: The patient is a 60-year-old man with a history of cardiomyopathy dating back as far as 2013. He has had admissions for CHF in the past. Looks like admissions go back as far as 2013. He had a slight improvement of his EF back in 2014 after consistently taking his medications and at that time he was doing quite well. More recently, he was admitted in April with CHF symptoms. He was seen by Cardiology in consultation. At that time he had been admitted as well for possible pneumonia. He is a former methamphetamine user but he admits to not using it recently. That last admission he was continued on carvedilol, lisinopril and furosemide as well as spironolactone. As part of his workup in the past, he had a stress test which was performed in 2014. EF was estimated at 45% and findings were consistent with nonischemic cardiomyopathy. He has not had recent followup in Cardiology Clinic. With this admission, he came in again with increased shortness of breath. Although the H and P says he came in with chest pain, he tells me that was not the case. He said he had more shortness of breath. He says he was having some problems lying flat as well as shortness of breath with exertion. On EKG, he did not have any acute changes. He had findings consistent with LVH with repolarization changes which appeared similar to previous EKGs. He has been placed on a heparin drip as well as Plavix and aspirin and he has been given diuretics although this has not been written as a regular medication. Currently, he says he feels better at this time. He is lying flat in bed. He denies problems with lower extremity edema. He denies chest pain or chest pressure at this time. PAST MEDICAL HISTORY/PROBLEM LIST: 1. History of cardiomyopathy. 2. History of hepatitis C. 3. History of methamphetamine use. He denies any current use. MEDICATIONS: From recent discharge include: 1. Carvedilol 3.125 mg b.i.d. 2. Lisinopril 2.5 daily. 3. Aspirin 81 a day. 4. Lasix 20. 5. Potassium. ALLERGIES: No known drug allergies. SOCIAL HISTORY: He is a former tobacco user. He denies alcohol use or drug use at this time. FAMILY HISTORY: Grandfather of an GA at age 80. REVIEW OF SYSTEMS: Constitutional: No fevers, chills, night sweats, or weight loss. GI: No problems with ulcers or blood in his stool. : No dysuria, hematuria. Pulmonary: Some increased shortness of breath likely related to his heart. Cardiac: As per HPI. No palpitations, presyncope, syncope. Derm: No rash or skin breakdown. Endocrine: No heat or cold intolerance. Heme: No easy bruising or bleeding. Pulmonary: No lung issues. Musculoskeletal: No joint pain or swelling. ENT: No difficultly swallowing. No sore throat. Ophtho: No vision changes. Psych: No acute issues. All review of systems of a 12 point review of systems are negative. PHYSICAL EXAMINATION: Blood pressure 116/77, heart rate 63, sats are 92% on 2 L. General: In no acute distress. Speaking in full sentences without apparent shortness of breath. Head and neck exam: Normocephalic, atraumatic. Vascular: I do not appreciate carotid bruits. Heart exam: Regular rate and rhythm. I do not appreciate murmurs, gallops, rubs appreciated. Lungs: Sound clear anteriorly. Back: No CVA to palpation. Abdomen: Soft, nontender. Extremities: Warm. I did not do not appreciate edema, 1 to 2+ distal pulses. Derm: Skin without breakdown appreciated. Neurologic: Gait is not tested. Psych: Appropriate mood and affect. ENT" mucous membranes moist, no oral lesions. Vision: grossly normal EKG to my review shows sinus rhythm with evidence for left atrial enlargement, LVH and EKG changes likely related to repolarization changes. LABORATORIES: Show a white count of 10, H and H 16.2 and 46.2, platelets read as 7000. Chemistry shows a sodium of 133, chloride and bicarb 98 and 21 respectively. BUN and creatinine 15 and 0.83. AST and ALT are somewhat up. Troponins are only mildly elevated. ProBNP is elevated. Chest x-ray interpreted this morning showing what appears to be a mild left lower lobe pneumonia, but it was seen in the same area on prior films and they thought maybe the area might be affected by scarring. IMPRESSION: The patient came in with increased shortness of breath. He was given a dose of Lasix. On telemetry he had five beats of ventricular tachycardia, however, that has resolved. He has a known cardiomyopathy which did improve after being on medications for some time and I have to doubt if he has been taking his medications regularly. I am not sure what his followup is. PLAN/RECOMMENDATIONS: 1. I would put him on his outpatient medications which he does not seem to be on at this time. 2. I would continue to diurese him and make sure he is urinating and feeling better. 3. I think we get him back on his home medications and we would probably be able to get him compensated and able to go home. Especially in light of the fact he has VT, I think he needs to be on his beta devante and I will add that myself today. 45 minutes was spent reviewing the chart, speaking with the patient/family and examining the patient and writing for his medications MTDD
--- NOTE | 2016-08-08 20:38 | PCM.PNMED ---
Subjective Date of Service Aug 08, 2016 Subjective Amando Servin is a 60 year old with Hepatitis C, Chronic systolic heart failure with mod-severe reduced EF, smoker and prior history of methamphetamine abuse brought to [facility] emergency department by EMS complaining of substernal chest pain. Overnight: No acute events since admission. Today: Patient felt well this morning and did not complain of any chest pain or shortness of breath. He denies any nausea or vomiting. He stated that he last took methamphetamines 3 months ago. ROS is negative otherwise. Exam Vital Signs Vital Sign - Last Date Time Temp Pulse Resp B/P Pulse Ox O2 Delivery O2 Flow Rate FiO2 08/08/16 19:54 36.9 68 18 108/74 97 Nasal Cannula 5.00 Intake and Output 08/07/16 08/07/16 08/08/16 Cumulative From/Thru 15:00 23:00 07:00 08/08/16 02:32 - 08/08/16 06:27 Intake Total 163 ml 163 ml Balance 163 ml 163 ml IV Total 163 ml 163 ml Exam General: Alert, Oriented X3, Cooperative, No acute Distress Eyes: PERRLA, Scleral Anicteric Mouth: Mouth Normal, Mucous Membranes Moist/[place] Neck: Supple, no Thyromegaly, trachea central. Chest & Lungs: Clear to auscultation & percussion, No adventitious breath sounds, no crackles, no wheeze Cardiovascular: Normal S1, Normal S2, No Murmurs/Rubs/Gallops, Regular Rate/ Rhythm, (No JVD, no peripheral edema) Pulses: Radial (present and equal), Dorsalis Pedi (present and equal) Abdomen: Soft, Non-tender, Non-distended, Normoactive bowel tones. Musculoskeletal: Unremarkable. Normal range of motion, no swollen or erythematous joints Extremities: No edema, no cyanosis, no clubbing. Skin: No rashes. Warm and dry, no erythematous areas Neurological: Grossly neurologically intact, Normal Speech, Sensation Intact Lymphatic: Lymph nodes Cervical and Axillary not palpable. IVs and Medications Medications Reviewed: Medications were reviewed in detail Lab and Diagnostics Result Diagram: 08/08/1623708/08/16237 X-Rays, CTs and MRIs X-RAY CHEST ONE VIEW, PORTABLE IMPRESSION: What appears to be mild left lower lobe pneumonia is seen however this same area has been abnormal on several prior chest plain films from April of last year and earlier this month. It is possible that that area is affected by scarring rather than acute pneumonia at this time. Dictated by: Aleks Flaherty M.D. on 08/08/2016 at 8:10 Assessment & Plan Amando Servin is a 60 year old with Hepatitis C, chronic systolic heart failure with mod-severe reduced EF, smoker and prior history of methamphetamine abuse brought to [facility] emergency department by EMS complaining of substernal chest pain. 1. Chronic systolic heart failure, in decompensation, present on admission, ongoing. - BNP elevated above last with normal kidney function; however, pt looks slightly dry on examination with decreased skin turgor; mod-severe clubbing of the fingernails - Last EF was 20-25% - Restarting lisinopril and carvedilol - continue diuretics - Likely this is the largest cause of his elevated troponin and chest pain - Cardiology consulted, appreciate the expertise. Dr. Chou restarted the patient's cardiac medications. Likely his poor compliance is the result of his decompensation and overall picture now. 2. Elevated troponin of uncertain significance, present on admission, ongoing Several risk factors for acute coronary syndrome with age, congestive heart failure and smoking. Recently admitted for workup was not completed with recommendations to follow up as outpatient. - trending cardiac biomarkers, which decreased - continue Heparin drip, Cardiac protocol - antiplatelets with Aspirin and Plavix (300 mg loading with 75 mg daily) - continuing statin with Atorvastatin 80 mg HS - Cardiology previously recommended outpatient ischemic workup, may need cardiac cath this time 3. Non sustained Ventricular tachycardia. Present on admission Related to low EF 20-30% - monitor on telemetry - consider amiodarone drip if has repeat runs - Cardiology evaluation for AICD placement - maintain magnesium and potassium levels 4. Hepatitis C with acute on chronic transaminitis - Pt states he contracted this from a transfusion a number of years ago - recent hepatitis panel recently ordered and still pending - this explains elevated transaminase levels on labs 5. History of methamphetamine abuse - States that he last used 3 months ago. 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 VTE Mechanical Devices: Intermittant Pneumatic CD Resuscitation Status: CPR: Attempt Resuscitation Attending Statement The patient was seen and examined together with Dr. Ayala on 08/08/2016 and I agree with the history, exam and plan as outlined in the note above. . Michelle Ayala DO Aug 08, 2016 20:38 Skip Nichols MD Aug 10, 2016 14:16
[2016-08-09] VITALS (8 sets, daily range): BP systolic 91–110; BP diastolic 59–81; PULSE 63–74; RESP 16–22; O2SAT 93–97
--- NOTE | 2016-08-09 04:17 | NUR ---
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 Patient states the pain worsens with a deep breath. MD aware of patient's intermittent chest pain. Heparin gtt infusing. 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 No changes to telemetry. VSS.
[2016-08-09 05:47] LABS: EOSINOPHILS % (AUTO) 8.6 % (0-5); MONOCYTES % (AUTO) 14.4 % (4-12); Mean Corpuscular Hemoglobin 33.1 pg (27.0-35.0); Mean Corpuscular Volume 95.9 fL (81-100); NEUTROPHILS % (AUTO) 18.2 % (40-74); Platelet Count 288 bil/L (150-400)
[2016-08-09] MEDS: Heparin Protocol Boluses IVPUSH PRN (06:04)
[2016-08-09] MEDS: Sodium Chloride LOK Flush 10 mL Syringe IVFLUSH SCH ×3 (08:40→23:31)
--- NOTE | 2016-08-09 14:39 | PROG NOTE ---
[address] [address] PROGRESS NOTE PATIENT: TODD VASQUES : 1955 MR#: [id number] ADMIT: 08/08/2016 JOB ID: [id number] DATE: 08/09/2016 CHIEF COMPLAINT: The patient came in with increased shortness of breath. He has a history of stress testing back in 2014, which showed no evidence for ischemia. Findings were more consistent with a nonischemic cardiomyopathy. He tells me that he ran out of his medications and believes that has been a potential reason why he got so short of breath. He is feeling better after giving some IV diuretic yesterday. He has had some intermittent chest discomfort. This may be related to increased filling pressures. PHYSICAL EXAMINATION: His blood pressure is 103/78, afebrile. Sats are 93% on 2 L. General: In no acute distress. Speaking in full sentences without pressured breath. Head and neck exam: Normocephalic, atraumatic. Heart exam: Regular rate and rhythm. Lungs sound clear. Abdomen soft. Extremities: Warm. CURRENT MEDICATIONS: Include: 1. Lasix 20 mg daily. 2. Carvedilol 3.125 b.i.d. 3. Plavix 75 daily. 4. Aspirin 81 mg a day. 5. Atorvastatin 80 mg q.h.s. LABORATORY DATA: Show an H and H 15.2, 43.8, platelets stable yesterday. Chemistry today shows sodium 135, potassium 4.1, chloride and bicarb 101 and 24 respectively. BUN and creatinine 21 and 0.83. Troponins have been in the indeterminate range. I's and O's show that yesterday he was negative 620 cc. IMPRESSION: The patient came in with increased shortness of breath, signs and symptoms consistent with congestive heart failure. He has a known cardiomyopathy which did improve after medical management sometime back but has worsened and this may be partially related to the fact that he has not been able to keep up with refilling his medications. He is feeling better after diuresis, although he still having some intermittent chest pain. His troponins are in the indeterminate range. PLAN: 1. I am going to add back his lisinopril. Now he is on Coreg. He will be on Lasix as well. We are going to see how he does with oral Lasix and going back on his medications, and if there is still any concern about his chest discomfort given the indeterminate range of his troponins, I would consider stress testing. 2. Continue with beta devante. He has no more episodes of ventricular tachycardia. We will follow with you. SUYAPA
[2016-08-09] MEDS: Heparin 25K Unit/500mL 0.45 NS 25,000 UNIT in IV Premix 1 EACH IV SCH (16:16)
--- NOTE | 2016-08-09 17:04 | PCM.PNMED ---
Subjective Date of Service Aug 09, 2016 Subjective Amando Servin is a 60 year old with Hepatitis C, Chronic systolic heart failure with mod-severe reduced EF, smoker and prior history of methamphetamine abuse brought to [facility] emergency department by EMS complaining of substernal chest pain. Hospital day 3. Overnight: Patient had some mild chest pain overnight that was relieved with nitroglycerin. Today: Patient felt well this morning and did not complain of any chest pain or shortness of breath. He denies any nausea or vomiting. ROS is negative otherwise. Exam Vital Signs Vital Sign - Last Date Time Temp Pulse Resp B/P Pulse Ox O2 Delivery O2 Flow Rate FiO2 08/09/16 16:18 36.8 63 20 91/59 95 Nasal Cannula 2.00 Intake and Output 08/08/16 08/08/16 08/09/16 Cumulative From/Thru 15:00 23:00 07:00 08/08/16 02:32 - 08/09/16 06:54 Intake Total 1017 ml 975 ml 2155 ml Output Total 1800 ml 875 ml 2675 ml Balance -783 ml 100 ml -520 ml Intake Oral 236 ml 780 ml 1016 ml IV Total 781 ml 195 ml 1139 ml Output Urine Total 1800 ml 875 ml 2675 ml # Bowel Movements 0 0 Exam General: Alert, Oriented X3, Cooperative, No acute Distress Eyes: PERRLA, Scleral Anicteric Mouth: Mouth Normal, Mucous Membranes Moist/[place] Neck: Supple, no Thyromegaly, trachea central. Chest & Lungs: Clear to auscultation & percussion, No adventitious breath sounds, no crackles, no wheeze Cardiovascular: Normal S1, Normal S2, No Murmurs/Rubs/Gallops, Regular Rate/ Rhythm, (No JVD, no peripheral edema) Pulses: Radial (present and equal), Dorsalis Pedi (present and equal) Abdomen: Soft, Non-tender, Non-distended, Normoactive bowel tones. Musculoskeletal: Unremarkable. Normal range of motion, no swollen or erythematous joints Extremities: No edema, no cyanosis, no clubbing. Skin: No rashes. Warm and dry, no erythematous areas Neurological: Grossly neurologically intact, Normal Speech, Sensation Intact Lymphatic: Lymph nodes Cervical and Axillary not palpable. Lab and Diagnostics Result Diagram: 08/09/16 0815 08/09/16 0459 X-Rays, CTs and MRIs X-RAY CHEST ONE VIEW, PORTABLE IMPRESSION: What appears to be mild left lower lobe pneumonia is seen however this same area has been abnormal on several prior chest plain films from April of last year and earlier this month. It is possible that that area is affected by scarring rather than acute pneumonia at this time. Dictated by: Aleks Flaherty M.D. on 08/08/2016 at 8:10 Assessment & Plan Amando Servin is a 60 year old with Hepatitis C, chronic systolic heart failure with mod-severe reduced EF, smoker and prior history of methamphetamine abuse brought to [facility] emergency department by EMS complaining of substernal chest pain. Hospital day 2. 1. Chronic systolic heart failure, in decompensation, present on admission, ongoing. - BNP elevated above last with normal kidney function; however, pt looks slightly dry on examination with decreased skin turgor; mod-severe clubbing of the fingernails - Last EF was 20-25% - Restarting lisinopril and carvedilol - IV diuretics switched to oral. - Likely this is the largest cause of his elevated troponin and chest pain - Cardiology consulted, appreciate the expertise. Dr. Chou restarted the patient's cardiac medications. Likely his poor compliance is the result of his decompensation and overall picture now. 2. Elevated troponin of uncertain significance, present on admission, ongoing Several risk factors for acute coronary syndrome with age, congestive heart failure and smoking. Recently admitted for workup was not completed with recommendations to follow up as outpatient. - trending cardiac biomarkers, which decreased - continue Heparin drip, Cardiac protocol - antiplatelets with Aspirin and Plavix (300 mg loading with 75 mg daily) - continuing statin with Atorvastatin 80 mg HS - Cardiology recommends watching overnight and the chest pain resolves patient can pursue outpatient testing. If chest pain continues consider stress test before discharge. 3. Non sustained Ventricular tachycardia. Present on admission. Resolved. Related to low EF 20-30% - monitor on telemetry - maintain magnesium and potassium levels 4. Hepatitis C with acute on chronic transaminitis, present on admission, chronic. - Pt states he contracted this from a transfusion a number of years ago - Hepatitis panel ordered and pending. - Explains elevated transaminase levels on labs 5. History of methamphetamine abuse - States that he last used 3 months ago. - Acetaminophen as needed for mild pain/fever/headache - Bowel regimen as needed - Antiemetic as needed Disposition: Anticipate patient can be discharged in the next day or so pending resolution of chest pain. If chest pain continues cardiology would recommend stress test. Pain Evaluation: Adequate Pain Control GI Prophylaxis: Not indicated VTE Prophylaxis: Other (heparin drip) VTE Mechanical Devices: Intermittant Pneumatic CD Resuscitation Status: CPR: Attempt Resuscitation Attending Statement The patient was seen and examined together with Dr. Blunt on 08-09-16 and I agree with the history, exam and plan as outlined in the note above. CHAKA BLUNT DO Aug 09, 2016 17:04 Scooter Britton MD Aug 10, 2016 14:45
[2016-08-09] MEDS: 0.9% Sodium Chloride 1,000 ML IV SCH (17:05)
--- NOTE | 2016-08-09 19:38 | NUR ---
C/P pt c/o 3/10 chest pain at about 1215, 3mg morphine given. Pt resting with eyes closed with reassessment. No c/o pain through the rest of day shift. Report given to oncoming RN.
[2016-08-10] VITALS (10 sets, daily range): BP systolic 94–108; BP diastolic 61–74; PULSE 60–67; RESP 16–18; O2SAT 88–95
[2016-08-10] MEDS: Heparin Protocol Boluses IVPUSH PRN (00:01)
--- NOTE | 2016-08-10 03:36 | NUR ---
Chest pain/EKG changes C/o chest pain at 2019 and relieved with 5 mg IV morphine. (Pt states 2 mg ineffective). Had 5/10 left sided, sharp chest pain again with some shortness of breath at 224. EKG showed some changes. MD notified. Pain reduced to 1/10 with 3 nitro, and completely resolved with another 2 mg of morphine. Sats in upper 90's on 2 liters nasal cannula.
--- NOTE | 2016-08-10 05:09 | NUR ---
BP/pain No further pain. Bp dropped to 80's after administration of nitro, but now is 94/60. Lying comfortably in bed without complaints.
[2016-08-10] MEDS: 0.9% Sodium Chloride 1,000 ML IV SCH ×2 (05:10→17:17)
[2016-08-10 05:15] LABS: Mean Corpuscular Hemoglobin 32.7 pg (27.0-35.0); Mean Corpuscular Volume 96.1 fL (81-100)
[2016-08-10 06:14] LABS: Magnesium 1.8 mg/dL (1.6-2.6); Phosphorus 4.6 mg/dL (2.5-4.9); TROPONIN T 0.016 ug/L (0.0-0.011)
[2016-08-10] MEDS: Sodium Chloride LOK Flush 10 mL Syringe IVFLUSH SCH ×3 (08:30→20:30)
--- NOTE | 2016-08-10 09:27 | NUR ---
Social Work Note: Screen Note Data& Assessment: EMR reviewed. Amando Servin is a 60 year old male admitted on 08/08/2016 for unstable angina and V tach. Pt has [facility] insurance coverage. Pt lives in [place] with Family and is independent at baseline. Pt is currently SBA in room. Pt reports meth use three months ago per H&P but denies any recent meth use. No discharge needs identified at this time. SW to continue to follow if any needs arise. Plan: Anticipated discharge home via POV when medically ready. No discharge needs identified at this time. SW to continue to follow if any needs arise. YUAN Wood
--- NOTE | 2016-08-10 10:47 | NUR ---
Manuel Jacques from the [facility] program is currently following this patient and will be out today to meet with patient. Updated LABORATORY [facility]
--- NOTE | 2016-08-10 13:37 | PROG NOTE ---
[address] [address] PROGRESS NOTE PATIENT: TODD VASQUES : 1955 MR#: [id number] ADMIT: 08/08/2016 JOB ID: [id number] DATE: Wednesday, August 10, 2016 CONSULTING PHYSICIAN: Cardiology--Andrew Bowman MD. CARDIOLOGY PROGRESS NOTE--FOLLOW -UP INPATIENT CONSULTATION: PROBLEMS: 1. ADCHF (acute Decompensated Heart Failure): a. Admitted August 08, 2016 with with classic shortness of breath, and classic PND, and orthopnea. b. Now Improved--Ran out of medicines; and nearly back to baseline now after reinstituting optimal medical therapy. c. Cardiomyopathy--Chronic heart failure with repeated hospital admissions; and cardiomyopathy is clinically felt to be nonischemic cardiomyopathy based on a prior stress test; and attributed also possibly to toxins including methamphetamine. 2. Chest pain: a. Concern raised by mild atypical recurrent chest pain during this admission--sharp and highly atypical for ischemia. b. Fractional elevation of troponin--"indeterminate range." c. Consideration of stress test. SUBJECTIVE: Hospital Day-4. HOSPITAL COURSE: I met Mr. Vasques along with the Hospitalist Team today on Cardiology rounds. I reviewed his hospital record, examined him, and discussed with the Hospitalist Team. He tells me his admitting symptoms were overwhelmingly severe dyspnea which he attributed to running out of his medicines. He feels almost back to baseline now that his medicines have been reinstituted. His history helps confirm the clinical diagnosis of heart failure--he really had overt PND, and orthopnea despite not much edema. He does not mention chest discomfort until asked. The chest discomfort is highly atypical--intermittent, sharp, picking sensations in his chest. He does not have any anginal symptoms, generally, or currently. There has, however, been concern for the chest discomfort in the setting of even mildly elevated troponin and the current question to Cardiology relates to the possibility of a stress test which has been considered. OBJECTIVE: EXAMINATION: General appearance: Elderly appearing and chronically ill appearing man who seems much older than his age. He is lying nearly flat, comfortable; and he tells me he has been sleeping nearly flat now that he is back on his medicines. Vital signs: Blood pressure 100/67. O2 saturation 95% on room air. Respiratory rate 18 and unlabored. Heart rate 62, regular. Neck: Jugular venous pressure appears to be top-normal about 10 cm of water. Lungs: The lungs are clear bilaterally on inspiration but there are expiratory wheezes; and coughing with forced expiration. CARDIAC: No chest wall tenderness. He does have a soft apical S3 gallop audible, consistent with his cardiomyopathy. No loud murmur. Abdomen: Unremarkable. Extremities: No edema. DIAGNOSTIC STUDIES: CHEST X-RAY: I reviewed the chest x-ray film from August 08. There is cardiomegaly. The pulmonary veins are not much prominent and there is not overt pulmonary edema. LABORATORY: Note troponin 0.162, 0.025 only. LDL 64; and remarkably HDL 88. BUN 26 with creatinine 0.78. Echocardiogram: Report from a prior echocardiogram of August 02, 2016 includes markedly dilated LV with severe LV dysfunction; with ejection fraction 20%-25% without change from previously; and no wall motion defects but note global hypokinesis. Moderate mitral regurgitation, and mild tricuspid regurgitation with pulmonary pressure 30, systolic pressure 34 and RA pressure estimated 3. ASSESSMENT: I discussed the findings, impressions, and management considerations with the patient and with the Hospitalist Team includin. ADCHF: The current evaluation confirms the working clinical impression that he has had a heart failure exacerbation attributable to running out of his medicines. Interestingly, the medicines really do help him and he is almost back to baseline now that he is on a good medical regimen. His diuresis can be continued empirically, and until his BUN becomes slightly elevated (prerenal) . Overall he does have severe cardiomyopathy that is end-stage; and the overall prognosis is limited. 2. Chest pain: The chest pain is not prominent, is highly atypical, and highly likely not ischemic. Although the troponin is very slightly elevated raising concern for coronary disease, the overall impression is that it is not inconsistent with the overwhelming clinical diagnosis of nonischemic cardiomyopathy, and he has been treated as a non WENDY-ACS; and stress test is being considered. A stress test was considered especially in view of the efforts to be conservative and avoid invasive approach in this man with difficult medical care, hepatitis C and heavy prior toxin use. As we discussed, it would be reasonable to continue with the plan to get a stress test with pharmacologic myocardial perfusion scan. In the setting of very poor LV function this may be nonspecific--patchy abnormalities may be seen and may not represent coronary disease. It is unlikely that such a finding would mitigate strongly in favor of invasive approach with catheterization. Alternatively a negative result would be reassuring. Would continue to monitor for any overt signs of ischemia; but would not pursue his current highly atypical chest discomfort with aggressive medical therapy. RECOMMENDATIONS: 1. Continue to titrate optimal medical therapy for his heart failure, including afterunloading as tolerated, especially considering his MR. 2. Consider a pharmacologic myocardial perfusion scan. 3. Efforts to establish ongoing strong primary care, and specialty follow-up may be helpful to him. 4. Given his very low ejection fraction, ICD/AOC OPERATIONS INTELLIGENCE CHIEF may be indicated, and can be considered. SUYAPA
--- NOTE | 2016-08-10 18:23 | NUR ---
Cardiac pt had now c/o chest pain through day shift. Pt seen by cardiology, plan for stress test in AM, NPO after midnight. Will report to oncoming RN.
--- NOTE | 2016-08-10 18:34 | PCM.PNMED ---
Subjective Date of Service Aug 10, 2016 Subjective Amando Servin is a 60 year old with Hepatitis C, Chronic systolic heart failure with mod-severe reduced EF, smoker and prior history of methamphetamine abuse brought to [facility] emergency department by EMS complaining of substernal chest pain. Hospital day 4. Overnight: Patient had some mild chest pain overnight that he describes as stabbing and sharp in nature that was relieved with nitroglycerin. Today: Patient felt well this morning and did not complain of any chest pain or shortness of breath. He denies any nausea or vomiting. ROS is negative otherwise. Exam Vital Signs Vital Sign - Last Date Time Temp Pulse Resp B/P Pulse Ox O2 Delivery O2 Flow Rate FiO2 08/10/16 17:05 66 08/10/16 15:28 36.6 18 108/72 94 Room Air 08/10/16 10:09 1.00 Intake and Output 08/09/16 08/09/16 08/10/16 Cumulative From/Thru 15:00 23:00 07:00 08/08/16 02:32 - 08/10/16 06:23 Intake Total 779 ml 1200 ml 4134 ml Output Total 1150 ml 500 ml 4325 ml Balance -371 ml 700 ml -191 ml Intake Oral 550 ml 1000 ml 2566 ml IV Total 229 ml 200 ml 1568 ml Output Urine Total 1150 ml 500 ml 4325 ml # Bowel Movements 0 0 Exam General: Alert, Oriented X3, Cooperative, No acute Distress Eyes: PERRLA, Scleral Anicteric Mouth: Mouth Normal, Mucous Membranes Moist/[place] Neck: Supple, no Thyromegaly, trachea central. Chest & Lungs: Clear to auscultation & percussion, No adventitious breath sounds, no crackles, no wheeze Cardiovascular: Normal S1, Normal S2, S3, No Murmurs/Rubs/Gallops, Regular Rate/ Rhythm, (No JVD, no peripheral edema) Pulses: Radial (present and equal), Dorsalis Pedi (present and equal) Abdomen: Soft, Non-tender, Non-distended, Normoactive bowel tones. Musculoskeletal: Unremarkable. Normal range of motion, no swollen or erythematous joints Extremities: No edema, no cyanosis, no clubbing. Skin: No rashes. Warm and dry, no erythematous areas Neurological: Grossly neurologically intact, Normal Speech, Sensation Intact Lymphatic: Lymph nodes Cervical and Axillary not palpable. Lab and Diagnostics Result Diagram: 08/10/16 0451 08/10/16 0451 X-Rays, CTs and MRIs X-RAY CHEST ONE VIEW, PORTABLE IMPRESSION: What appears to be mild left lower lobe pneumonia is seen however this same area has been abnormal on several prior chest plain films from April of last year and earlier this month. It is possible that that area is affected by scarring rather than acute pneumonia at this time. Dictated by: Aleks Flaherty M.D. on 08/08/2016 at 8:10 Assessment & Plan Amando Servin is a 60 year old with Hepatitis C, chronic systolic heart failure with mod-severe reduced EF, smoker and prior history of methamphetamine abuse brought to [facility] emergency department by EMS complaining of substernal chest pain. Hospital day 4. 1. Chronic systolic heart failure, in decompensation, present on admission, ongoing. - BNP elevated above last with normal kidney function; however, pt looks slightly dry on examination with decreased skin turgor; mod-severe clubbing of the fingernails - Last EF was 20-25% - Restarting lisinopril and carvedilol - IV diuretics switched to oral. - Likely this is the largest cause of his elevated troponin and chest pain - Cardiology consulted, appreciate the expertise. Dr. Chou restarted the patient's cardiac medications. Likely his poor compliance is the result of his decompensation and overall picture now. 2. Elevated troponin of uncertain significance, present on admission, downtrending. Several risk factors for acute coronary syndrome with age, congestive heart failure and smoking. Recently admitted for workup was not completed with recommendations to follow up as outpatient. - Trending cardiac biomarkers, which decreased - Heparin drip stopped 08/10.l - Antiplatelets with Aspirin and Plavix (300 mg loading with 75 mg daily) - Continuing statin with Atorvastatin 80 mg HS - Stress test planned for tomorrow, 08/11. Patient NPO after midnight. 3. Non sustained Ventricular tachycardia. Present on admission. Resolved. Related to low EF 20-30% - monitor on telemetry - maintain magnesium and potassium levels 4. Hepatitis C with acute on chronic transaminitis, present on admission, chronic. - Pt states he contracted this from a transfusion a number of years ago - Hepatitis panel ordered and pending. - Explains elevated transaminase levels on labs 5. History of methamphetamine abuse - States that he last used 3 months ago. - Acetaminophen as needed for mild pain/fever/headache - Bowel regimen as needed - Antiemetic as needed Disposition: Anticipate patient can be discharged in the next day or so pending stress test results. Pain Evaluation: Adequate Pain Control GI Prophylaxis: Not indicated VTE Prophylaxis: Sub-Q Heparin (Unfractionated) VTE Mechanical Devices: Intermittant Pneumatic CD Resuscitation Status: CPR: Attempt Resuscitation Attending Statement The patient was seen and examined together with Dr. Blunt on 08-10-16 and I agree with the history, exam and plan as outlined in the note above. CHAKA BLUNT DO Aug 10, 2016 18:34 Scooter Britton MD Aug 11, 2016 14:56
[2016-08-10] MEDS: Heparin 5,000 Unit/mL Inj SUBQ SCH (20:30)
[2016-08-10] MEDS ORDERED: Furosemide 10 mg/mL 2 mL Inj IV ONE (23:50)
[2016-08-11] MEDS: 0.9% Sodium Chloride 1,000 ML IV SCH (01:52)
[2016-08-11 03:04] VITALS: BP 97/65; PULSE 66; RESP 16; O2SAT 93
[2016-08-11 04:43] LABS: Mean Corpuscular Hemoglobin 33.3 pg (27.0-35.0); Mean Corpuscular Volume 95.5 fL (81-100)
[2016-08-11 05:00] LABS: TROPONIN T 0.019 ug/L (0.0-0.011)
--- NOTE | 2016-08-11 05:05 | NUR ---
Dyspnea 2L NC applied to pt at HS d/t SpO2 88% on RA. At approx. 2230, pt c/o significant dyspnea, stating "I just feel like I can't get a deep breath." Denies chest pain, though states "I think I can feel a twinge coming on." VS obtained, SpO2 95%. Pt encouraged to change position to facilitate breathing, STAT EKG obtained. SpO2 on reassessment decreased to 91-92% on 2L NC, pt increased to 4L NC with SpO2 approx. 93-94%. Lungs crackly in bases to auscultation, paged, one time order for 20mg IV push lasix given and administered. Pt reports relief upon reassessment, able to rest throughout shift. Pt transitioned self to RA at approx. 0100, SpO2 remains 93-95%. Crackles remain unchanged to 0400 assessment, but pt reports "feeling better". Tele SB/SR 50s-60s.
[2016-08-11 05:11] LABS: Magnesium 1.8 mg/dL (1.6-2.6); Phosphorus 4.2 mg/dL (2.5-4.9)
[2016-08-11 08:30] VITALS: BP 108/54; PULSE 74; RESP 14; O2SAT 93
[2016-08-11] MEDS: Heparin 5,000 Unit/mL Inj SUBQ SCH (08:32)
[2016-08-11] MEDS: Sodium Chloride LOK Flush 10 mL Syringe IVFLUSH SCH ×2 (08:33→16:22)
[2016-08-11 10:30] VITALS: PULSE 75
[2016-08-11 12:13] VITALS: BP 107/71; PULSE 80; RESP 18; O2SAT 92
--- NOTE | 2016-08-11 13:20 | DRSVH ---
PROCEDURE: 1 DAY PHARMACOLOGICAL STRESS TEST Rest and pharmacological stress myocardial perfusion SPECT with gated imaging and ejection fraction RADIOPHARMACEUTICAL: 8.4 mCi Tc-99m tetrafosmin IV at rest and 24.1 mCi Tc-99m tetrafosmin IV at peak effect of pharmacological stress. A [id number] was performed. INDICATIONS: UNSTABLE ANGINA TECHNIQUE: Radiopharmaceutical was injected at peak stress test, and also at rest. SPECT images wer e obtained. SPECT myocardial perfusion images were displayed in short axis, horizontal long axis, an d vertical long axis views. Gated images were reviewed using [employer] software. COMPARISON: None. CARDIAC STRESS: A pharmacologic stress test was performed under the supervision of an attending staff, using an infus ion of Lexiscan. Hemodynamic data: Patient is unable to achieve target heart rate with exercise. Symptoms: The patient experienced chest pain with Lexiscan administration. Aminophylline: 100 mg administered EKG: Partial left bundle branch block is present. With exercise, ST depression is seen in leads V2 ( 1.7 mm), V3 (1.8 mm, V5 (1.6 mm), and V6 (2.4 mm). Multiple couplets and frequent multifocal PVCs are present, which worsen with exercise. FINDINGS: Raw data: There is good myocardial uptake of radiotracer. No significant motion artifacts. Left ventricle function: Diffuse left ventricular hypokinesis is present. No segmental wall motion ab normalities. Left ventricle resting end diastolic volume is 365 mL. Left ventricle stress ejection fraction is 14%; normal range is above 45%. Myocardial perfusion: There is normal distribution of activity in the right and left ventricular ricky cardium. No fixed or reversible perfusion defects. IMPRESSION: 1. No scintigraphic evidence of myocardial ischemia. 2. ST depression is seen with exercise in leads V2-V6 as described, without scintigraphic correlate. 3. Diffuse left ventricular hypokinesis, with low left ventricular ejection fraction of 14%. 4. Partial left bundle branch block. Multifocal PVCs and couplets are present, which worsen with exer cise. 5. Findings discussed with Dr. Heck on 08.11.16 at 1315 hrs. PQRS ATTESTATIONS: Measure 322 - Is this imaging test primarily performed on a low-risk surgery patient for preoperative evaluation within 30 days preceding their low-risk non-cardiac surgery? Low-risk surgery is defined as cardiac or myocardial infarction less than 1%, including (but not limited to) endoscopic pr ocedures, superficial procedures, cataract surgery, and excisional breast surgery: Answer: No Measure 323 - Is this imaging test performed primarily for the monitoring of an asymptomatic patient who had percutaneous coronary intervention on the visit date or within 2 years of the visit date? An swer: No Measure 324 - Is this imaging test performed primarily for the initial detection and risk assessment on an asymptomatic, low coronary heart disease patient? Low CHD risk definition = clinicians should consider the maximum number of available patient factors used to estimate risk based on Queen (A TP III criteria), typically age, gender, diabetes, smoking status, and use of blood pressure medicati on, and integrate age appropriate estimates for missing elements, such as LDL or standard blood press ure. Answer: No Dictated by: Raheem Xie M.D. on 08/11/2016 at 13:19 Approved by: Raheem Xie M.D. on 08/11/2016 at 13:19
[2016-08-11] MEDS ORDERED: ATOR40TA69 PO (13:39)
[2016-08-11] MEDS ORDERED: CLOP75TA28 PO (13:39)
[2016-08-11] MEDS ORDERED: FUR20 PO (13:39)
[2016-08-11] MEDS ORDERED: CARV3.122 PO (13:43)
[2016-08-11] MEDS ORDERED: LISI-571 PO (13:43)
--- NOTE | 2016-08-11 14:24 | PCM.DIMED ---
CHAKA BLUNT DO 08/11/16 1424: Discharge Instructions Date of Service Aug 11, 2016 Dates of Hospitalization Aug 08, 2016 at 03:23 Discharge Diagnosis Discharge Diagnosis 1. Chronic systolic heart failure, in decompensation, present on admission, stable. 2. Elevated troponin of uncertain significance, present on admission, downtrending. 3. Non sustained Ventricular tachycardia. Present on admission. Resolved. 4. Hepatitis C with acute on chronic transaminitis, present on admission, chronic. 5. History of methamphetamine abuse. Medication Instructions During your hospitalization you were restarted on your home regimen with a few changes. New home regimen is as follows: - Carvedilol 3.125 mg twice a day - Lisinopril 2.5 mg daily - Furosemide 20 mg twice a day - Atorvastatin 80 mg nightly - Aspirin 81 mg daily - Clopidogrel 75 mg daily Diet Low fat, Low Sodium, Heart Healthy Activity No restrictions Call your provider Fever or Chills, Shortness of breath, Chest pain, Weakness (unilateral) Patient Instructions - During your hospitalization you were found to have an exacerbation of your heart failure due to running out of your medications. - Your chest pain was likely secondary to your heart not function well off medications. - Your stress test showed no acute changes but did show changes consistent with your heart failure. - It is extremely important that you take all your medications as prescribed. - We will set you up with our congestive heart failure clinic to help monitor your health more closely. - Please establish care with a primary care provider within the next week. You may establish at the [facility] if you would like as you do not have a PCP at this time. Follow-up Provider: [facility] Follow-up with PCP in: 1 week CHF Clinic: 1 week Scooter Britton MD 09/06/16 0924: Discharge Instructions Attending's Statement The patient was seen and examined together with Dr. Blunt on 08-11-16 and I agree with the history, exam and plan as outlined in the note above. CHAKA BLUNT DO Aug 11, 2016 14:24 Scooter Britton MD Sep 06, 2016 09:24
--- NOTE | 2016-08-11 15:14 | NUR ---
Social Work Note: Discharge Data& Assessment: EMR reviewed. Per pt is medically ready for discharge. SW met with pt at bedside to confirm discharge plan and assess for any unmet needs. Amando Servin is a 60 year old male admitted on 08/08/2016 for unstable angina and V tach. Per pt is medically improved and stable and ready to discharge home via POV. Pt is ambulating at baseline. Pt confirms he has a family member coming to transport him home. Pt denies any other needs. No other discharge needs identified. All updated and agreeable to plan. Plan: Per pt is medically ready for discharge.Pt confirms he has a family member coming to transport him home. Pt denies any other needs. No other discharge needs identified. All updated and agreeable to plan. YUAN Wood
--- NOTE | 2016-08-11 16:25 | NUR ---
Discharge Pt. discharged with all belongings, Pt. given educational material on atorvastatin, carvedilol, clopidogrel, furosemide, lisinopril, and angina. Pt. instructed he needed to make a f/u appointment with [facility] in 1 week, Pt. understood and stated he will do that. IV on right hand DC'D and intact, Pt. left room to wait for his ride in the lobby.
--- NOTE | 2016-08-12 06:12 | PCM.DC.MED ---
Discharge Summary Date of Service Aug 12, 2016 Dates of Hospitalization Date of Hospital Admission Aug 08, 2016 at 03:23 Date of Discharge: Aug 11, 2016 Providers: Admitting Physician: Joe Wilkins MD Primary Care Physician: Nopcp Attending Physician: Joe Wilkins MD Diagnosis at Time of Discharge Diagnosis at Time of Discharge 1. Chronic systolic heart failure, in decompensation, present on admission, stable. 2. Elevated troponin of uncertain significance, present on admission, downtrending. 3. Non sustained Ventricular tachycardia. Present on admission. Resolved. 4. Hepatitis C with acute on chronic transaminitis, present on admission, chronic. 5. History of methamphetamine abuse. Consultations Cardiology - Dr. Chou and Dr. Bowman Procedures XRay, CTs & MRIs X-RAY CHEST ONE VIEW, PORTABLE IMPRESSION: What appears to be mild left lower lobe pneumonia is seen however this same area has been abnormal on several prior chest plain films from April of last year and earlier this month. It is possible that that area is affected by scarring rather than acute pneumonia at this time. Dictated by: Aleks Flaherty M.D. on 08/08/2016 at 8:10 Other Diagnostics PROCEDURE: 1 DAY PHARMACOLOGICAL STRESS TEST IMPRESSION: 1. No scintigraphic evidence of myocardial ischemia. 2. ST depression is seen with exercise in leads V2-V6 as described, without scintigraphic correlate. 3. Diffuse left ventricular hypokinesis, with low left ventricular ejection fraction of 14%. 4. Partial left bundle branch block. Multifocal PVCs and couplets are present, which worsen with exercise. 5. Findings discussed with Dr. Blunt on 08.11.16 at 1315 hrs. Dictated by: Raheem Xie M.D. on 08/11/2016 at 13:19 Approved by: Raheem Xie M.D. on 08/11/2016 at 13:[address] Wilkins's H&P: Amando Servin is a 60 year old with Hepatitis C, Chronic systolic heart failure with mod-severe reduced EF, smoker and prior history of methamphetamine abuse brought to [facility] emergency department by EMS complaining of substernal chest pain. Patient reported that pain began just prior to arrival. Pt also reports radiation to Right upper abdomen and dyspnea. 6/10 intensity. Similar to his chest pain that required him to be admitted recently. Denies nausea, diarrhea, constipation, headache, or diaphoresis. Denies any fever, chills or coughing. He denies any leg swelling. Pt recently admitted to the hospital for CP with elevated troponin from 08/01-08/03, discharged with plan for cardiology follow up. He was fine until yesterday morning when his symptoms started again. Hospital Course Amando Servin is a 60 year old with Hepatitis C, chronic systolic heart failure with mod-severe reduced EF, smoker and prior history of methamphetamine abuse brought to [facility] emergency department by EMS complaining of substernal chest pain. 1. Chronic systolic heart failure, in decompensation, present on admission, improved and stable. - Decompensation due to non compliance with medications. - BNP elevated above last with normal kidney function; however, pt looks slightly dry on examination with decreased skin turgor; mod-severe clubbing of the fingernails. - Last EF was 20-25% - Restarted lisinopril and carvedilol - IV diuretics initially and then switched to oral. - Likely this is the largest cause of his elevated troponin and chest pain - Cardiology consulted, appreciate the expertise. Dr. Chou restarted the patient's cardiac medications. 2. Elevated troponin of uncertain significance, present on admission, downtrending. Several risk factors for acute coronary syndrome with age, congestive heart failure and smoking. Recently admitted for workup was not completed with recommendations to follow up as outpatient. - Trended cardiac biomarkers, which decreased - Heparin drip stopped 08/10. - Antiplatelets with Aspirin and Plavix (300 mg loading with 75 mg daily) - Atorvastatin 80 mg HS. - Stress test completed 08/11 showed no ischemic changes but did reveal a dilated left ventricle. 3. Non sustained Ventricular tachycardia. Present on admission. Resolved. Related to low EF 20-30% - Monitored on telemetry - Maintained magnesium and potassium levels 4. Hepatitis C with acute on chronic transaminitis, present on admission, chronic. - Pt states he contracted this from a transfusion a number of years ago - Explains elevated transaminase levels on labs 5. History of methamphetamine abuse - States that he last used 3 months ago. Exam Vital Signs (Last) Date Time Temp Pulse Resp B/P Pulse Ox O2 Delivery O2 Flow Rate FiO2 08/11/16 12:13 36.3 80 18 107/71 92 Room Air 08/11/16 08:30 1.50 Exam General: Alert, Oriented X3, Cooperative, No acute Distress Eyes: PERRLA, Scleral Anicteric Mouth: Mouth Normal, Mucous Membranes Moist/[place] Neck: Supple, no Thyromegaly, trachea central. Chest & Lungs: Clear to auscultation & percussion, No adventitious breath sounds, no crackles, no wheeze Cardiovascular: Normal S1, Normal S2, S3, No Murmurs/Rubs/Gallops, Regular Rate/ Rhythm, (No JVD, no peripheral edema) Pulses: Radial (present and equal), Dorsalis Pedi (present and equal) Abdomen: Soft, Non-tender, Non-distended, Normoactive bowel tones. Musculoskeletal: Unremarkable. Normal range of motion, no swollen or erythematous joints Extremities: No edema, no cyanosis, no clubbing. Skin: No rashes. Warm and dry, no erythematous areas Neurological: Grossly neurologically intact, Normal Speech, Sensation Intact Lymphatic: Lymph nodes Cervical and Axillary not palpable. Test 08/08/16 02:38 08/08/16 09:40 08/09/16 04:59 08/10/16 10:57 Prothrombin Time 11.5sec (8.1-12.5) Prothromb Time International Ratio 1.07ratio Pro-B-Type Natriuretic Peptide 4768pg/mL (0-210) Lipase 23U/L (13-60) Hold Nicholson Top Tube Received (Received) Total Creatine Kinase 78U/L (21-232) Creatine Kinase MB 5.0ng/mL (0.0-10.4) Creatine Kinase MB % % (0.0-5.0) Neutrophils (%) (Auto) 18.2% (40-74) Lymphocytes (%) (Auto) 57.6% (14-46) Monocytes (%) (Auto) 14.4% (4-12) Eosinophils (%) (Auto) 8.6% (0-5) Basophils (%) (Auto) 1.0% (0-3) Triglycerides Level 48mg/dL (0-149) Cholesterol Level 163mg/dL (100-199) LDL Cholesterol, Calculated 65.400mg/dL (0-99) VLDL Cholesterol 9.600mg/dL HDL Cholesterol 88mg/dL (>39) Cholesterol/HDL Ratio 1.85 (0.0-4.4) Activated Partial Thromboplast Time 68.6sec (22.8-33.0) Test 08/11/16 04:17 White Blood Count 8.1th/mm3 (3.8-10.1) Red Blood Count 4.65mil/mm3 (4.40-5.80) Hemoglobin 15.5g/dL (13.8-17.2) Hematocrit 44.4% (41.0-50.0) Mean Corpuscular Volume 95.5fL (81-100) Mean Corpuscular Hemoglobin 33.3pg (27.0-35.0) Mean Corpuscular Hemoglobin Concent 34.9% (32.0-37.0) Red Cell Distribution Width 13.5% (12.3-15.4) Platelet Count 285bil/L (150-400) Sodium Level 137mEq/L (134-144) Potassium Level 4.9mEq/L (3.5-5.2) Chloride Level 100mEq/L (97-108) Carbon Dioxide Level 27mmol/L (18-29) Blood Urea Nitrogen 27mg/dL (6-24) Creatinine 0.76mg/dL (0.76-1.27) Estimat Glomerular Filtration Rate 112mL/min (>59) Glucose Level 98mg/dL (60-99) Calcium Level 8.8mg/dL (8.5-10.1) Phosphorus Level 4.2mg/dL (2.5-4.9) Magnesium Level 1.8mg/dL (1.6-2.6) Total Bilirubin 0.8mg/dL (0.0-1.2) Aspartate Amino Transf (AST/SGOT) 116U/L (0-50) Alanine Aminotransferase (ALT/SGPT) 97U/L (0-44) Alkaline Phosphatase 95U/L (25-160) Troponin T 0.019ug/L (0.0-0.011) Total Protein 6.6g/dL (6.4-8.4) Albumin 3.0g/dL (3.4-5.0) Discharge Medications Discharge Medications Aspirin Chew (Aspirin Chew) 81 Mg Chew 81 MG PO DAILY Prescribed by: SHANTI LOPEZ MD Atorvastatin Calcium (Atorvastatin Calcium) 40 Mg Tablet 80 MG PO HS Prescribed by: CHAKA A MERLENE, DO Carvedilol (Carvedilol) 3.125 Mg Tablet 3.125 MG PO BIDWM Prescribed by: CHAKA BLUNT DO Clopidogrel (Clopidogrel) 75 Mg Tablet 75 MG PO DAILY Prescribed by: CHAKA BLUNT DO Furosemide (Furosemide) 20 Mg Tab 20 MG PO BID Prescribed by: CHAKA BLUNT DO Lisinopril (Lisinopril) 5 Mg Tablet 2.5 MG PO DAILY Prescribed by: CHAKA BLUNT DO Potassium Chloride (Potassium Chloride) 20 Meq Tab.er.prt 20 MEQ PO DAILY Prescribed by: MONA ZARATE MD Additional med instructions During your hospitalization you were restarted on your home regimen with a few changes. New home regimen is as follows: - Carvedilol 3.125 mg twice a day - Lisinopril 2.5 mg daily - Furosemide 20 mg twice a day - Atorvastatin 80 mg nightly - Aspirin 81 mg daily - Clopidogrel 75 mg daily Followup Plan Discharge Diet: Low fat, Low Sodium, Heart Healthy Discharge Activity: No restrictions Patient Instructions - During your hospitalization you were found to have an exacerbation of your heart failure due to running out of your medications. - Your chest pain was likely secondary to your heart not function well off medications. - Your stress test showed no acute changes but did show changes consistent with your heart failure. - It is extremely important that you take all your medications as prescribed. - We will set you up with our congestive heart failure clinic to help monitor your health more closely. - Please establish care with a primary care provider within the next week. You may establish at the [facility] if you would like as you do not have a PCP at this time. Follow-up Provider: [facility] Follow-up with PCP in: 1 week CHF Clinic: 1 week Attending Statement The patient was seen and examined together with Dr. Blunt on 08-11-16 and I agree with the history, exam and plan as outlined in the note above. date of service is 08-11-16 for this note and visit. CHAKA BLUNT DO Aug 12, 2016 06:12 Scooter Britton MD Sep 06, 2016 09:26
== END 2016-08-11 16:25 | disposition home or self-care (01) | DRG 194 ==
LOC: SED 02:29 → PCC 03:23
PROVIDERS: ADMIT Hospitalist; ATTEND Hospitalist
DX: I50.22 Chronic systolic (congestive) heart failure (principal); I47.2 Ventricular tachycardia; I42.8 Other cardiomyopathies; B18.2 Chronic viral hepatitis C; Z87.891 Personal history of nicotine dependence; I25.2 Old myocardial infarction; Z79.82 Long term (current) use of aspirin

== ENCOUNTER 2016-11-08 08:59 | Inpatient (IN) | payer OTHER ==
[~2016-11-08] VITALS: Ht 175.3 cm; Wt 82.2 kg
[2016-11-08] VITALS (9 sets, daily range): BP systolic 86–134; BP diastolic 62–88; PULSE 51–99; RESP 20–44; O2SAT 93–97
[~2016-11-08 08:59] MED LIST changes: +ATOR40TA69 PO; +CLOP75TA28 PO
--- NOTE | 2016-11-08 09:10 | ED.REPORT ---
HPI-General Illness Date of Service Nov 08, 2016 ED Provider: Grace Walker MD 60 year old male with a history of CHF, non-ischemic cardiomyopathy, and splenectomy presents to the ER accompanied by his due to shortness of breath onset suddenly this morning. Associated symptoms include severe central abdominal pain, and he now endorses some substernal chest pain. He also reports several weeks of cough and diaphoresis. No relief of abdominal pain after taking Gaviscon. He took 650mg ASA this morning. Nursing Notes Stated Complaint: RAPID HEART RATE Chief Complaint: Respiratory Distress Nursing Notes Reviewed: Yes Allergies: Coded Allergies: No Known Allergies (Verified Allergy, Unknown, 08/08/16) Scheduled Aspirin Chew (Aspirin Chew) 81 Mg Chew 81 MG PO DAILY Atorvastatin Calcium (Atorvastatin Calcium) 80 Mg Tablet 80 MG PO HS Carvedilol (Carvedilol) 3.125 Mg Tablet 3.125 MG PO BIDWM Clopidogrel (Clopidogrel) 75 Mg Tablet 75 MG PO DAILY Furosemide (Furosemide) 20 Mg Tab 20 MG PO BID Lisinopril (Lisinopril) 2.5 Mg Tablet 2.5 MG PO DAILY Potassium Chloride (Potassium Chloride) 20 Meq Tab.er.prt 20 MEQ PO DAILY Spironolactone (Spironolactone) 25 Mg Tablet 12.5 MG PO DAILY General Time Seen by MD: 09:09 Chief Complaint Other (Shortness of Breath) Hx Obtained From: Patient Arrived By: Walk-in Sudden in Onset?: Yes Onset Occurred: Just prior to arrival Symptom Duration: Since onset Location: : Abdomen: Chest Quality: Burning, Painful Severity: Current: Moderate Severity: Maximum: Moderate Associated with: Reports: Cough, Diaphoresis Pertinent Negative: Pt denies other symptoms Similar Sx Previous: No Past Medical History Past Medical History Non-ischemic cardiomyopathy Hepatitis C Methamphetamine abuse Reports: Congestive heart failure Past Surgical History 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 Smoking History Former Smoker Social History Alcohol Use: Denies alcohol use Drug Use: Meth Ambulatory Status Independent Review of Systems Full Review of Systems Respiratory: Reports: Non-productive cough, Shortness of breath Cardiovascular: Reports: Chest pain GI: Reports: Abdominal pain, Denies: Nausea, Vomiting Musculoskeletal: Denies: Back pain, Extremity pain, Neck pain Skin: Reports Diaphoresis Complete sys rev & neg: except as marked. Physical Exam Vital Signs Vital Signs Date Time Temp Pulse Resp B/P Pulse Ox O2 Delivery O2 Flow Rate FiO2 11/08/16 11:43 95 20 112/69 96 Nasal Cannula 2 11/08/16 10:58 99 22 107/78 95 Room Air 2 Nasal Cannula 11/08/16 09:02 36.4 51 44 134/88 93 Room Air Initial VS: Reviewed Head / Eyes: Atraumatic, Normocephalic Extremities: Vascular intact, Neuro intact, No swelling, No tenderness Skin: Warm, Dry, No cyanosis Neurologic: Alert, Oriented, Nonfocal General/Constitutional: Awake, Alert, Well developed Distress / Hydration: Positive: Distress moderate Appearance / Presentation: Positive: Pale, Uncomfortable Neck: Full range of motion, Non-tender, No midline vertebral tend Neck Vascular: Positive: JVD moderate Respiratory / Chest: No rhonchi, No chest tenderness, No chest wall deformity Tachypneic Minor crackles, bilaterally. Cardiovascular: Regular rhythm, Heart sounds NL, Cap refill not delayed, Peripheral circulation NL Heart Rate / Rhythm: Positive: Tachycardia Abdomen: Soft, Non-tender, No guarding, No rebound, No distention Interpretation & Diagnostics Lab Results Interpretation Result Diagram: 11/08/16 0910 11/08/16 0910 Test 11/08/16 09:10 11/08/16 11:07 White Blood Count 9.8th/mm3 (3.8-10.1) Red Blood Count 4.48mil/mm3 (4.40-5.80) Hemoglobin 14.9g/dL (13.8-17.2) Hematocrit 44.2% (41.0-50.0) Mean Corpuscular Volume 98.7fL (81-100) Mean Corpuscular Hemoglobin 33.3pg (27.0-35.0) Mean Corpuscular Hemoglobin Concent 33.7% (32.0-37.0) Red Cell Distribution Width 14.0% (12.3-15.4) Platelet Count 246bil/L (150-400) Neutrophils (%) (Auto) 48.7% (40-74) Lymphocytes (%) (Auto) 34.5% (14-46) Monocytes (%) (Auto) 13.0% (4-12) Eosinophils (%) (Auto) 2.7% (0-5) Basophils (%) (Auto) 0.9% (0-3) Activated Partial Thromboplast Time 28.6sec (22.8-33.0) Sodium Level 135mEq/L (134-144) Potassium Level 3.9mEq/L (3.5-5.2) Chloride Level 98mEq/L (97-108) Carbon Dioxide Level 20mmol/L (18-29) Blood Urea Nitrogen 22mg/dL (6-24) Creatinine 0.90mg/dL (0.76-1.27) Estimat Glomerular Filtration Rate 92mL/min (>59) Glucose Level 115mg/dL (60-99) Lactic Acid Level 1.4mmol/L (0.4-2.0) Calcium Level 8.7mg/dL (8.5-10.1) Magnesium Level 1.7mg/dL (1.6-2.6) Total Bilirubin 1.3mg/dL (0.0-1.2) Aspartate Amino Transf (AST/SGOT) 75U/L (0-50) Alanine Aminotransferase (ALT/SGPT) 65U/L (0-44) Alkaline Phosphatase 94U/L (25-160) Pro-B-Type Natriuretic Peptide 16516if/mL (0-210) Total Protein 7.4g/dL (6.4-8.4) Albumin 3.4g/dL (3.4-5.0) Procalcitonin 0.10ng/mL (0.00-0.08) Hold Urine Received (Received) Urine Opiates Screen Negative Urine Methadone Screen Negative Urine Barbiturates Screen Negative Urine Amphetamines Screen Positive Urine Benzodiazepines Screen Negative Urine Cocaine Metabolite Screen Negative Urine Cannabinoids Screen Negative ECG Interpretation ECG Interpretation: Sinus tachycardia, rate 105 Multiple PVC's Left atrial enlargement Incomplete LBBB LVH with secondary repolarization abnormality Anterior ST elevation, probably due to LVH Prolonged QT interval Similar to July 2016 Time: 09:12 Interpreted by: ED physician ECG Interpretation: Sinus tachycardia, rate 99 Multiple PVC's Left atrial enlargement Incomplete LBBB LVH Prolonged QT interval Similar to 09:12 exam Time: 10:42 Interpreted by: ED physician X-Ray Chest Interpretation Chest Xray Interpretation: IMPRESSION: Ill-defined patchy consolidative opacities projecting in the left retrocardiac region, probably atelectasis/scarring given the unchanged appearance although it would be difficult to exclude superimposed pneumonia in this location therefore please correlate clinically. Otherwise no interval change Dictated by: Stan Thomas M.D. on 11/08/2016 at 10:24 Approved by: Stan Thomas M.D. on 11/08/2016 at 10:26 View: Portable, 1 view Interpretation / Wet Read by: Interpret - Radiologist Re-Eval/Medical Decision Med Decision/Clinical Course Presents with acute onset severe shortness of breath some burning epigastric pain and then notes some minor substernal chest pain. Initial EKG does not suggest a STEMI. Slightly elevated troponin. Pain is resolved patient is appearing much more clinically stable. Heparin is started nitro drip was started. Cardiology is called with presumption of non-STEMI. On further evaluation she feels that this is more severe heart failure with a "troponin leak" and has recommended discontinuation of the nitroglycerin and heparin. Patient is stable at time of transfer to the floor. Source of Hx: Old records Time of Eval: 09:25 Re-Evaluation/Progress Note: Discussed lab and imaging results and need for admission. Patient is amenable to the plan. All other questions addressed. Consultation #1: Referral / Consult Name: Maki Gill MD Consulted With: Cardiology Call Returned at: 10:55 Consultation #2: Referral / Consult Name: Maki Gill MD Consulted With: Cardiology Call Returned at: 11:38 Note: Suspects noncompliance. Lasix and admission. Consultation #3: Referral / Consult Name: Lauro Jean MD Consulted With: Hospitalist Call Returned at: 12:04 Child Care Worker: Agrees with eval, Agrees with plan, Accepts admit Counseled Regarding: Diagnosis, Lab results, Need for admission Discharge & Departure Primary Impression: CHF (congestive heart failure) Additional Impression: Non-ST elevation myocardial infarction (NSTEMI) Disposition: ADMITTED TO HOSPITAL Discharge Condition All VS Reviewed: Yes Condition: Stable Referrals: NOPCP (PCP) Crit Care Except Billable Proc Time Spent: 30-74 minutes (41) Services Performed: Patient management by me, Time spent at bedside, Reviewing test results, Reviewing imaging, Discussing patient care, Documentation in record, Time with fam/surrogate Scribe Attestation Portions of this note were transcribed by Mahamed Velazquez. I, Dr. Walker, personally performed the history, physical exam and medical decision-making; I reviewed and confirmed the accuracy of the information in the transcribed note. Signed by: Jong Lloyd, 11/08/2016 at 12:05 Grace Walker MD Nov 08, 2016 09:10 MAHAMED VELAZQUEZ Nov 08, 2016 09:17
[2016-11-08] MEDS ORDERED: Ondansetron 2 mg/mL 2 mL Inj IVPUSH ONE (09:20)
[2016-11-08] MEDS ORDERED: Nitroglycerin 2% 1 Gm Ointment TOPICAL ONE (09:20)
[2016-11-08] MEDS ORDERED: MeTOProlol 1 mg/mL 5 mL Inj IVPUSH PRN (09:20)
[2016-11-08 09:30] LABS: BASOPHILS % (AUTO) 0.9 % (0-3); Mean Corpuscular Hemoglobin 33.3 pg (27.0-35.0); Mean Corpuscular Volume 98.7 fL (81-100)
[2016-11-08] MEDS ORDERED: cefTRIAXone Inj 2,000 MG in Dextrose 5% Minibag Plus 50 ML IV ONE (09:30)
[2016-11-08] MEDS ORDERED: Azithromycin Inj 500 MG in Dextrose 5% w/Vial Mate 250 ML IV ONE (09:30)
[2016-11-08 09:32] LABS: EOSINOPHILS % (AUTO) 2.7 % (0-5); NEUTROPHILS % (AUTO) 48.7 % (40-74); Platelet Count 246 bil/L (150-400)
[2016-11-08 10:13] LABS: Magnesium 1.7 mg/dL (1.6-2.6)
[2016-11-08 10:20] LABS: TROPONIN T 0.064 ug/L (0.0-0.011)
--- NOTE | 2016-11-08 10:28 | DRSVH ---
PROCEDURE: X-RAY CHEST ONE VIEW, PORTABLE ([id number]) INDICATIONS: chest pain TECHNIQUE: One view of the chest was acquired. COMPARISON: [facility], CR, XR CHEST 2VW, 04/29/2016, 9:49. [facility], CR, XR CHEST 1VW (PORTABLE), 08/01/2016, 19:25. [facility], CR, XR CHEST 1VW (PORTABLE), 07/25, 2:30. FINDINGS: Surgical changes and devices: None. Lungs and pleura: Patchy consolidative left basilar retrocardiac opacities, overall this appears bret sly unchanged. No pneumothorax. Cannot exclude trace left pleural fluid. Mediastinum: Mediastinal contours appear normal. Heart size is normal. Bones and chest wall: No suspicious bony lesions. Overlying soft tissues appear unremarkable. IMPRESSION: Ill-defined patchy consolidative opacities projecting in the left retrocardiac region, probably atele ctasis/scarring given the unchanged appearance although it would be difficult to exclude superimposed pneumonia in this location therefore please correlate clinically. Otherwise no interval change Dictated by: Stan Thomas M.D. on 11/08/2016 at 10:24 Approved by: Stan Thomas M.D. on 11/08/2016 at 10:26
[2016-11-08] MEDS ORDERED: Nitroglycerin 50 mg/250 mL D5W 50,000 MCG in IV Premix 1 EACH IV ONE (10:31)
[2016-11-08] MEDS ORDERED: Heparin 5,000 Unit/mL Inj IVPUSH ONE (10:35)
[2016-11-08] MEDS ORDERED: Heparin 25K Unit/500mL 0.45 NS 25,000 UNIT in IV Premix 1 EACH IV ONE (10:35)
[2016-11-08] MEDS ORDERED: LISI2.5T PO (11:34)
[2016-11-08] MEDS ORDERED: SPIR25TA3 PO (11:34)
[2016-11-08] MEDS ORDERED: ATOR80TA77 PO (11:34)
[2016-11-08] MEDS ORDERED: Furosemide 10 mg/mL 4 mL Inj IVPUSH ONE ×2 (11:40→18:00)
[2016-11-08] MEDS ORDERED: Polyethylene Glycol (PEG) 17 Gm Powder PO PRN (12:45)
[2016-11-08] MEDS ORDERED: Ondansetron 2 mg/mL 2 mL Inj IVPUSH PRN (12:45)
--- NOTE | 2016-11-08 13:07 | PCM.HPMED ---
Subjective Date of Service Nov 08, 2016 Primary Provider: Admitting Physician: Lauro Jean MD Primary Care Physician: Nopmary Attending Physician: Lauro Jean MD Admit Status: From the Emergency Department, Full Admit, Admit to Yellow Team Chief Complaint: Shortness of breath History of Present Illness: This is a 60-year-old, known history of nonischemic dilated cardiomyopathy. He has an EF of 10-15%. The patient has had progressive dyspnea primarily with exertion for the last several weeks. He became more short of breath this morning. Some palpitations but no clear associated chest pain. The patient did have a stress test which was notable for global decreased uptake in July of this year. The patient also had global ST changes during that stress test. This was felt to be consistent with a nonischemic severe systolic cardiomyopathy. The patient presented to the ER today in respiratory distress. He was diuresed initially placed on a heparin and nitroglycerin drip. The patient has no clear history of myocardial infarction. He was seen by cardiology and discontinuance of these 2 clips and primary therapy for systolic heart failure, acute. The patient denies recent cough, fevers or chills. He has had orthopnea but no pedal edema. Denies recent nausea vomiting diarrhea or blood per rectum or hematuria. No recent URI symptoms including rhinorrhea cough and sore throat. He does have a history of methamphetamine use. He denies recent use for the last year. A U tox was not obtained in the ED. He denies any alcohol or other illicit drug use. Review of Systems: Otherwise reviewed and done remarkable for exception of as noted in history of present illness Allergies Coded Allergies: No Known Allergies (Verified Allergy, Unknown, 08/08/16) Home Medications Aspirin Chew (Aspirin Chew) 81 Mg Chew 81 MG PO DAILY Atorvastatin Calcium (Atorvastatin Calcium) 80 Mg Tablet 80 MG PO HS Carvedilol (Carvedilol) 3.125 Mg Tablet 3.125 MG PO BIDWM Clopidogrel (Clopidogrel) 75 Mg Tablet 75 MG PO DAILY Furosemide (Furosemide) 20 Mg Tab 20 MG PO BID Lisinopril (Lisinopril) 2.5 Mg Tablet 2.5 MG PO DAILY Potassium Chloride (Potassium Chloride) 20 Meq Tab.er.prt 20 MEQ PO DAILY Spironolactone (Spironolactone) 25 Mg Tablet 12.5 MG PO DAILY PMH 1. Severe nonischemic dilated cardiomyopathy with chronic systolic heart failure, EF of approximately 10-15%. 2. History of methamphetamine dependence 3. Remote splenectomy Surgical History Splenectomy Family History Negative for coronary artery disease or myocardial infarction Social History Hx Alcohol Use: No Hx Substance Use: No Hx Tobacco Use: Yes Smoking Status: Former Smoker Living Arrangement: with Family Exam Vital Signs Vital Sign - Last Date Time Temp Pulse Resp B/P Pulse Ox O2 Delivery O2 Flow Rate FiO2 11/08/16 12:48 36.7 94 20 111/88 97 Nasal Cannula 3.00 Exam Oriented 3. No distress. Fluent speech. Normal affect. Normal skull. Normal nose and ears. Anicteric sclera, symmetric pupils Oropharynx is unremarkable, no facial droop. Neck is supple, normal thyroid. No adenopathy. She does have elevated JVP. Lungs are clear, normal effort rate. He does have basilar crackles. Heart is regular without murmur gallop or rub. Abdomen soft, nondistended or tender. Extremities are free of pedal edema. Good radial and pedal pulses. Skin is free of rash, lesions. No petechiae or ecchymosis. Joints are grossly normal. Cranial nerves are grossly normal. Motor strength is normal in all extremities. Normal muscular tone. Lab and Diagnostics Result Diagram: 11/08/16 0910 11/08/16 0910 X-Rays, CTs and MRIs Chest x-ray: IMPRESSION: Ill-defined patchy consolidative opacities projecting in the left retrocardiac region, probably atelectasis/scarring given the unchanged appearance although it would be difficult to exclude superimposed pneumonia in this location therefore please correlate clinically. Otherwise no interval change Dictated by: Stan Thomas M.D. on 11/08/2016 at 10:24 Approved by: Stan Thomas M.D. on 11/08/2016 at 10:26 12-lead ECG Sinus rhythm with nonspecific ST segment changes and a partial left bundle- branch block. Assessment & Plan #. Acute on chronic systolic heart failure, POA. The patient will be diuresed with Lasix 40 IV every 12 hours. Several troponins will be trended. The patient will be given nitrates as acquired. #. Methamphetamine dependence, not present on admission per his report. The patient will undergo a urine toxicity screen. He denies drug use last year. #. Remote splenectomy, POA. Local care plan was pursued today. The patient declines resuscitation is therefore DO NOT RESUSCITATE. He also declines intubation is DO NOT INTUBATE. Inpatient status, 2 nights stay expected. Pain Evaluation: Adequate Pain Control Resuscitation Status: DNR/DNI:Do Not Resuscitate/Intubate Time spent 40 minutes Lauro Jean MD Nov 08, 2016 13:07
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
[2016-11-08] MEDS: Sodium Chloride LOK Flush 10 mL Syringe IVFLUSH SCH (16:09)
[2016-11-08] MEDS: Heparin 5,000 Unit/mL Inj SUBQ SCH (16:30)
[2016-11-08] MEDS ORDERED: Nitroglycerin 50 mg/250 mL D5W 50,000 MCG in IV Premix 1 EACH IV SCH (16:45)
--- NOTE | 2016-11-08 17:37 | NUR ---
Admit/chest pain Pt arrived on floor at 1245. A&O x3, able to transfer from [facility] to bed independently. Denied chest pain, dizziness or SOB at this time, and vital signs stable at 2L NC. Around 1600, pt started having increased chest pain (6/10), somewhat diaphoretic and increased RR. Gave 2mg IV morphine which was ineffective, gave 2mg more after 15 minutes, got stat ECG and paged MD. Restarted pt on nitro gtt at 5, increased to 15mcg before pt was pain free. Pt somewhat hypotensive, but MAPs in the 70s. Frequent rounding and assessments continue.
[2016-11-09] VITALS (10 sets, daily range): BP systolic 90–126; BP diastolic 60–100; PULSE 66–94; RESP 15–22; O2SAT 94–98
[2016-11-09] MEDS: Sodium Chloride LOK Flush 10 mL Syringe IVFLUSH SCH ×3 (00:30→16:46)
[2016-11-09] MEDS: Heparin 5,000 Unit/mL Inj SUBQ SCH ×3 (01:20→16:45)
[2016-11-09 03:36] LABS: Mean Corpuscular Hemoglobin 33.7 pg (27.0-35.0); Mean Corpuscular Volume 99.8 fL (81-100); Platelet Count 237 bil/L (150-400)
[2016-11-09 03:44] LABS: BASOPHILS % (AUTO) 1.4 % (0-3); EOSINOPHILS % (AUTO) 5.9 % (0-5); MONOCYTES % (AUTO) 13.7 % (4-12); NEUTROPHILS % (AUTO) 28.4 % (40-74)
[2016-11-09 03:57] LABS: Magnesium 1.8 mg/dL (1.6-2.6)
[2016-11-09] MEDS ORDERED: Furosemide 10 mg/mL 4 mL Inj IVPUSH ONE ×2 (05:45→17:30)
--- NOTE | 2016-11-09 07:18 | NUR ---
Cardiac Pt denies CP. Nitro gtt weaned off then stopped at 2100. Pt C/O CP at 0400. 12 leads obtained and no acute changes noted. Pt was medicated with Morphine. CP resolved. No further CP reported. VSS. No overt complications noted.
--- NOTE | 2016-11-09 10:47 | PCM.PNMED ---
Subjective Date of Service Nov 09, 2016 Subjective He is feeling better today. He had intermittent episodes of chest pressure overnight but these have resolved. He is on nitroglycerin for several hours last evening and now this is off. Was discontinued yesterday. His troponins remained very mildly elevated but stable in the 0.050 range. He feels his breathing is about 50% improved. No nausea diaphoresis or dyspnea. No abdominal pain. No overnight events. Exam Vital Signs Vital Sign - Last Date Time Temp Pulse Resp B/P Pulse Ox O2 Delivery O2 Flow Rate FiO2 11/09/16 08:05 Supplement Oxygen 11/09/16 07:54 36.6 94 19 124/100 96 3.00 Intake and Output 11/08/16 11/08/16 11/09/16 Cumulative From/Thru 15:00 23:00 07:00 11/08/16 09:02 - 11/09/16 05:15 Intake Total 921 ml 921 ml Output Total 1200 ml 1200 ml Balance -279 ml -279 ml Intake Oral 800 ml 800 ml IV Total 121 ml 121 ml Output Urine Total 1200 ml 1200 ml Exam Alert and oriented 3, no distress. Fluent speech Anicteric sclera. Lungs are clear with normal rate and effort, diminished breath sounds in the bases. Heart is regular without murmur gallop or rub elevated JVP Abdomen soft nontender, flat Extremities are free of edema. Skin is free of rash or lesions. IVs and Medications Medications Reviewed: Medications were reviewed in detail Lab and Diagnostics Result Diagram: 11/09/16 0330 11/09/16 0330 X-Rays, CTs and MRIs Chest x-ray: IMPRESSION: Ill-defined patchy consolidative opacities projecting in the left retrocardiac region, probably atelectasis/scarring given the unchanged appearance although it would be difficult to exclude superimposed pneumonia in this location therefore please correlate clinically. Otherwise no interval change Dictated by: Stan Thomas M.D. on 11/08/2016 at 10:24 Approved by: Stan Thomas M.D. on 11/08/2016 at 10:26 12-lead ECG Sinus rhythm with nonspecific ST segment changes and a partial left bundle- branch block. Assessment & Plan #. Acute on chronic systolic heart failure, POA. The patient will be diuresed with Lasix 40 IV every 12 hours. Several troponins have been trended and are stable. The patient is at IV nitroglycerin turned off. At this point we will start oral beta blockade with metoprolol 12.5 twice a day. We will continue diuresis will discuss further management with cardiology. #. Methamphetamine dependence, POA. Patient did have a positive urine toxicity for methamphetamine. #. Remote splenectomy, POA. Local care plan was pursued today. The patient declines resuscitation is therefore DO NOT RESUSCITATE. He also declines intubation is DO NOT INTUBATE. Inpatient status, 2 nights stay expected. VTE Mechanical Devices: Intermittant Pneumatic CD Resuscitation Status: DNR/DNI:Do Not Resuscitate/Intubate Lauro Jean MD Nov 09, 2016 10:46
--- NOTE | 2016-11-09 13:38 | NUR ---
Social Work- Brief Note Data: EMR reviewed. Pt is a 60 year old male admitted 11/08/16 for CHF/NON STEMI per H&P. [facility]. Pt's last PCP appointment was October 21, 2016. Pt's insurance is [employer]. HITESH met with pt and Bessie Hernandez [phone] regarding discharge plan, CD assessment, SW role explained. 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 Pt's assists him with meal planning and errands. Pt is followed by Manuel Jacques from [facility]. SW faxed clinicals to [facility] attn Manuel Jacques [phone]. Pt has a history of meth use, though he states that he has not used in over a year. Pt has a (+) amphetamine screen obtained when he was admitted to the floor. SW followed up with pt regarding this. Pt continues to deny methamphetamine use, maintains last use was over a year ago. Pt declines CD resources, declines CD assessment as pt states he is not using. No identified discharge needs. Pt to discharge home with to transport via POV. SW will continue to follow. 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 Plan: Pt declined CD assessment/outpt resources. Pt maintains he is not using meth at this time. No identified discharge needs. Pt to discharge home with to transport via POV. SW will continue to follow. YUAN Nelson
[2016-11-09] MEDS ORDERED: Nitroglycerin 2% 1 Gm Ointment TOPICAL SCH (17:15)
--- NOTE | 2016-11-09 19:18 | NUR ---
CP: P: pt reported 4/10 CP I: Pt reported SOB and diaphoresis. VSS. MD notified. Ordered Morphine 2mg IVP. E: CP unresolved with Morphine. MD notified. Nitro paste ordered. pt reports pain is slowly getting better 2/10 CP at this time.
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
[2016-11-10 00:37] VITALS: PULSE 72
[2016-11-10] MEDS: Sodium Chloride LOK Flush 10 mL Syringe IVFLUSH SCH ×2 (01:36→09:11)
[2016-11-10] MEDS: Heparin 5,000 Unit/mL Inj SUBQ SCH ×2 (01:36→09:09)
[2016-11-10 03:09] VITALS: BP 91/68; PULSE 79; RESP 18; O2SAT 98
--- NOTE | 2016-11-10 06:30 | NUR ---
Cardiac Pt denies CP throughout. He slept approx 10 hrs. VSS. No overt complications noted.
[2016-11-10 09:05] VITALS: BP 109/84; PULSE 86; RESP 12; O2SAT 95
[2016-11-10 10:39] VITALS: PULSE 79
--- NOTE | 2016-11-10 11:30 | PCM.DICHF ---
CHF Discharge Instructions Date of Service: Nov 10, 2016 Dates of Hospitalization Date of Hospital Admission Nov 08, 2016 at 12:10 Date of Discharge: Nov 10, 2016 Providers Admitting Physician: Lauro Jean MD Primary Care Physician: Nopmary Attending Physician: Lauro Jean MD Diagnosis at Time of Discharge Diagnosis at time of discharge Acute on chronic systolic congestive heart failure; nonischemic cardiomyopathy; sympathomimetic abuse Problems: Labs Ejection Fraction Laboratory Tests Test Range/Units 11/08/16 09:10 11/09/16 03:30 Lactic Acid Level 0.4-2.0 mmol/L 1.4 Pro-B-Type Natriuretic Peptide 0-210 pg/mL 58249 Procalcitonin 0.00-0.08 ng/mL 0.10 Sodium Level 134-144 mEq/L 136 Potassium Level 3.5-5.2 mEq/L 4.4 Chloride Level 97-108 mEq/L 101 Carbon Dioxide Level 18-29 mmol/L 21 Blood Urea Nitrogen 6-24 mg/dL 27 Creatinine 0.76-1.27 mg/dL 0.92 Estimat Glomerular Filtration Rate >59 mL/min 89 Glucose Level 60-99 mg/dL 106 Calcium Level 8.5-10.1 mg/dL 8.5 Magnesium Level 1.6-2.6 mg/dL 1.8 Total Bilirubin 0.0-1.2 mg/dL 0.9 Aspartate Amino Transf (AST/SGOT) 0-50 U/L 67 Alanine Aminotransferase (ALT/SGPT) 0-44 U/L 57 Alkaline Phosphatase 25-160 U/L 75 Troponin T 0.0-0.011 ug/L 0.051 Total Protein 6.4-8.4 g/dL 6.6 Albumin 3.4-5.0 g/dL 3.0 Triglycerides Level 0-149 mg/dL 48 Cholesterol Level 100-199 mg/dL 136 LDL Cholesterol, Calculated 0-99 mg/dL 48.400 VLDL Cholesterol mg/dL 9.600 HDL Cholesterol >39 mg/dL 78 Cholesterol/HDL Ratio 0.0-4.4 1.74 Discharge Medications Other Medication Instructions You have received instructions on the medications your physician has prescribed at discharge. A list of these medications has been provided to you. Keep this and a list of all current medications with you. Keep the dates when you received the Flu and Pneumococcal (Pneumonia) Vaccines. Last known date of receiving Flu Vaccine Declines Last known date of receiving Pneumococcal (Pneumonia) Vaccine Declines Diet CHF Discharge Diet: Other (low-sodium diet) Diet Instructions CHF Low Salt diet ( 2 grams or less sodium/day) Choose foods and drinks with low or no salt. Remove salt shaker from the table. Read Nutritional Facts labels. Activity CHF Discharge Activity: No restrictions Weight Monitoring 1. Weigh yourself every day at the same time and write it down. 2. Take your weight log to your doctor visits. 3. Call your doctor if you gain 3-5 pounds over 2-3 days. 4. Your weight today is 181.22 lbs. Additional Instructions CHF Teaching Packet given and: No Smoking--Tobacco Use If you smoke, you are strongly encouraged to stop. If you have recently quit smoking, CONGRATULATIONS. For further information to stop smoking or to remain smoke-free, Follow Up Plan Follow Up Plan Contact the cardiology clinic for a posthospitalization follow-up appointment with Dr. Carolina Chou Follow Up: Weeks (1-2 ) Report or call your Doctor REPORT TO YOUR DOCTOR OR SEEK MEDICAL ATTENTION: *Shortness of breath or have more difficulty breathing. *Swelling of your feet, ankles, hands or abdomen. *Feeling tired with normal activity or experiencing dizziness or fainting. *Trouble sleeping or waking up feeling short of breath or coughing. *Chest pain or pressure. *Weight gain of 3-5 pounds over 2-3 days. *Inability to take medications or follow treatment plan . Jay Schmid MD Nov 10, 2016 11:30
--- NOTE | 2016-11-10 11:46 | NUR ---
Social Work: Discharge Data: Pt is on day 2 of hospitalization. EMR reviewed. D/C orders are in. CD assessment previously completed. No further [employer] needs at this time. [employer] will continue to follow if needs arise. Assessment: Pt who is independent at baseline. Plan: Pt will d/c home today via POV. No further [employer] needs at this time. [employer] will continue to follow if needs arise. YUAN Dos Santos
[2016-11-10 12:15] VITALS: BP 100/70; PULSE 81; RESP 22; O2SAT 94
--- NOTE | 2016-11-10 14:49 | NUR ---
Discharge Pt discharged in WC with and RN at 1420. No complaints or concerns, reviewed discharge instructions and follow up. Pt verbalized understanding. Reinforced CHF teaching. All belongings with pt. IV dc'd w/out complication.
--- NOTE | 2016-11-10 18:56 | PCM.DC.MED ---
Discharge Summary Date of Service Nov 10, 2016 Dates of Hospitalization Date of Hospital Admission Nov 08, 2016 at 12:10 Date of Discharge: Nov 10, 2016 Providers: Admitting Physician: Lauro Jean MD Primary Care Physician: Hernandez Attending Physician: Lauro Jean MD Diagnosis at Time of Discharge Diagnosis at Time of Discharge Acute on chronic systolic congestive heart failure; nonischemic cardiomyopathy; sympathomimetic abuse Procedures XRay, CTs & MRIs Chest x-ray: IMPRESSION: Ill-defined patchy consolidative opacities projecting in the left retrocardiac region, probably atelectasis/scarring given the unchanged appearance although it would be difficult to exclude superimposed pneumonia in this location therefore please correlate clinically. Otherwise no interval change Dictated by: Stan Thomas M.D. on 11/08/2016 at 10:24 Approved by: Stan Thomas M.D. on 11/08/2016 at 10:26 ECG 12 Lead Sinus rhythm with nonspecific ST segment changes and a partial left bundle- branch block. Brief History History of Present Illness (per admission note): This is a 60-year-old, known history of nonischemic dilated cardiomyopathy. He has an EF of 10-15%. The patient has had progressive dyspnea primarily with exertion for the last several weeks. He became more short of breath this morning. Some palpitations but no clear associated chest pain. The patient did have a stress test which was notable for global decreased uptake in July of this year. The patient also had global ST changes during that stress test. This was felt to be consistent with a nonischemic severe systolic cardiomyopathy. The patient presented to the ER today in respiratory distress. He was diuresed initially placed on a heparin and nitroglycerin drip. The patient has no clear history of myocardial infarction. He was seen by cardiology and discontinuance of these 2 clips and primary therapy for systolic heart failure, acute. The patient denies recent cough, fevers or chills. He has had orthopnea but no pedal edema. Denies recent nausea vomiting diarrhea or blood per rectum or hematuria. No recent URI symptoms including rhinorrhea cough and sore throat. He does have a history of methamphetamine use. He denies recent use for the last year. A U tox was not obtained in the ED. He denies any alcohol or other illicit drug use. Hospital Course #. Acute on chronic systolic heart failure, POA. The patient was diuresed with Lasix 40 IV every 12 hours. Several troponins have been trended and are her stable. We will start oral beta blockade with metoprolol 12.5 twice a day. CHF medications adjusted as indicated in discharge medication list #. Methamphetamine dependence, POA. Patient did have a positive urine toxicity for methamphetamine. #. Remote splenectomy, POA. #. CODE STATUS: The patient declines resuscitation is therefore DO NOT RESUSCITATE. He also declines intubation is DO NOT INTUBATE. Exam Vital Signs (Last) Date Time Temp Pulse Resp B/P Pulse Ox O2 Delivery O2 Flow Rate FiO2 11/10/16 10:39 79 11/10/16 09:05 36.9 12 109/84 95 Nasal Cannula 3.00 Exam General: Slightly disheveled man in no acute distress HEENT: sclerae anicteric, oral mucosa moist Neck: 3-4 cm JVD Chest: clear to auscultation Cardiac: S1S2, no S3, no murmur Abdomen: BS normal, non-tender Extremities: No edema Neuro: A&O, cranial nerves symmetric, motor strength and coordination normal Test 11/08/16 09:10 11/08/16 11:07 11/09/16 03:30 Activated Partial Thromboplast Time 28.6sec (22.8-33.0) Lactic Acid Level 1.4mmol/L (0.4-2.0) Pro-B-Type Natriuretic Peptide 36424od/mL (0-210) Procalcitonin 0.10ng/mL (0.00-0.08) Hold Urine Received (Received) Urine Opiates Screen Negative Urine Methadone Screen Negative Urine Barbiturates Screen Negative Urine Amphetamines Screen Positive Urine Benzodiazepines Screen Negative Urine Cocaine Metabolite Screen Negative Urine Cannabinoids Screen Negative White Blood Count 9.1th/mm3 (3.8-10.1) Red Blood Count 4.24mil/mm3 (4.40-5.80) Hemoglobin 14.3g/dL (13.8-17.2) Hematocrit 42.3% (41.0-50.0) Mean Corpuscular Volume 99.8fL (81-100) Mean Corpuscular Hemoglobin 33.7pg (27.0-35.0) Mean Corpuscular Hemoglobin Concent 33.8% (32.0-37.0) Red Cell Distribution Width 14.2% (12.3-15.4) Platelet Count 237bil/L (150-400) Neutrophils (%) (Auto) 28.4% (40-74) Lymphocytes (%) (Auto) 50.3% (14-46) Monocytes (%) (Auto) 13.7% (4-12) Eosinophils (%) (Auto) 5.9% (0-5) Basophils (%) (Auto) 1.4% (0-3) Sodium Level 136mEq/L (134-144) Potassium Level 4.4mEq/L (3.5-5.2) Chloride Level 101mEq/L (97-108) Carbon Dioxide Level 21mmol/L (18-29) Blood Urea Nitrogen 27mg/dL (6-24) Creatinine 0.92mg/dL (0.76-1.27) Estimat Glomerular Filtration Rate 89mL/min (>59) Glucose Level 106mg/dL (60-99) Calcium Level 8.5mg/dL (8.5-10.1) Magnesium Level 1.8mg/dL (1.6-2.6) Total Bilirubin 0.9mg/dL (0.0-1.2) Aspartate Amino Transf (AST/SGOT) 67U/L (0-50) Alanine Aminotransferase (ALT/SGPT) 57U/L (0-44) Alkaline Phosphatase 75U/L (25-160) Troponin T 0.051ug/L (0.0-0.011) Total Protein 6.6g/dL (6.4-8.4) Albumin 3.0g/dL (3.4-5.0) Triglycerides Level 48mg/dL (0-149) Cholesterol Level 136mg/dL (100-199) LDL Cholesterol, Calculated 48.400mg/dL (0-99) VLDL Cholesterol 9.600mg/dL HDL Cholesterol 78mg/dL (>39) Cholesterol/HDL Ratio 1.74 (0.0-4.4) Discharge Medications Discharge Medications Aspirin Chew (Aspirin Chew) 81 Mg Chew 81 MG PO DAILY Prescribed by: SHANTI LOPEZ MD Atorvastatin Calcium (Atorvastatin Calcium) 80 Mg Tablet 80 MG PO HS (Reported) Carvedilol (Carvedilol) 3.125 Mg Tablet 3.125 MG PO BIDWM Prescribed by: CHAKA BLUNT DO Clopidogrel (Clopidogrel) 75 Mg Tablet 75 MG PO DAILY Prescribed by: CHAKA BLUNT DO Furosemide (Furosemide) 20 Mg Tab 20 MG PO BID Prescribed by: CHAKA BLUNT DO Lisinopril (Lisinopril) 2.5 Mg Tablet 2.5 MG PO DAILY (Reported) Potassium Chloride (Potassium Chloride) 20 Meq Tab.er.prt 20 MEQ PO DAILY Prescribed by: MONA ZARATE MD Spironolactone (Spironolactone) 25 Mg Tablet 12.5 MG PO DAILY (Reported) Followup Plan Disposition: Home Follow-up plan Contact the cardiology clinic for a posthospitalization follow-up appointment with Dr. Carolina Chou Time spent 35 minutes copies to: Carolina Chou MD, Jeffrey W MD Nov 10, 2016 11:31
== END 2016-11-10 13:45 | disposition home or self-care (01) | DRG 292 ==
LOC: SED 08:59 → PCC 12:10
PROVIDERS: ADMIT Hospitalist; ATTEND Hospitalist
DX: I50.23 Acute on chronic systolic (congestive) heart failure (principal); I42.9 Cardiomyopathy, unspecified; Z66 Do not resuscitate; F15.10 Other stimulant abuse, uncomplicated; Z91.19 Patient's noncompliance with other medical treatment and regimen; Z79.82 Long term (current) use of aspirin; Z90.81 Acquired absence of spleen

== ENCOUNTER 2016-11-12 20:31 | Inpatient (IN) | payer OTHER ==
[~2016-11-12] VITALS: Ht 177.8 cm; Wt 76.7 kg
[~2016-11-12 20:31] MED LIST changes: -ATOR40TA69 PO; +ATOR80TA77 PO; -LISI-571 PO; +LISI2.5T PO; +SPIR25TA3 PO
[2016-11-12 20:35] VITALS: BP 148/100; PULSE 96; RESP 28; O2SAT 95
--- NOTE | 2016-11-12 20:51 | ED.REPORT ---
HPI-Dyspnea / Wheezing Date of Service Nov 12, 2016 ED Provider: Newton Winslow DO A 60 year old male with a history of PR, CHF, methamphetamine abuse, and hypertension presents to the ED complaining of shortness of breath and upper abdominal pain. This is accompanied by cough and wheezing. The pt was discharged from [facility] two days ago at which point he "felt okay." The abdominal pain and breathing have worsened since that point but the pt has not yet followed up with his PCP. The pt stopped smoking five years ago and denies history of emphysema or COPD. He is not on oxygen at home. Nursing Notes Stated Complaint: SOB Chief Complaint: Respiratory Distress Nursing Notes Reviewed: Yes Allergies: Coded Allergies: No Known Allergies (Verified Allergy, Unknown, 11/12/16) Scheduled Aspirin Chew (Aspirin Chew) 81 Mg Chew 81 MG PO DAILY Atorvastatin Calcium (Atorvastatin Calcium) 80 Mg Tablet 80 MG PO HS Carvedilol (Carvedilol) 3.125 Mg Tablet 3.125 MG PO BIDWM Clopidogrel (Clopidogrel) 75 Mg Tablet 75 MG PO DAILY Furosemide (Furosemide) 20 Mg Tab 20 MG PO BID Lisinopril (Lisinopril) 2.5 Mg Tablet 2.5 MG PO DAILY Potassium Chloride (Potassium Chloride) 20 Meq Tab.er.prt 20 MEQ PO DAILY Spironolactone (Spironolactone) 25 Mg Tablet 12.5 MG PO DAILY General Time Seen by MD: 20:51 Chief Complaint Shortness of breath Hx Obtained From: Patient, Other family... Arrived By: Walk-in Sudden in Onset?: No Onset Occurred: 2 days ago Symptom Duration: Since onset Recent Healthcare: Recent doctor visit, Recent hospitalization Similar Sx Previous: Yes Past Medical History Past Medical History Non-ischemic cardiomyopathy Hepatitis C Methamphetamine abuse PR Reports: Congestive heart failure, Hypertension Past Surgical History 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 Smoking History Former Smoker (quit 5 years ago) Social History Alcohol Use: Denies alcohol use Drug Use: Meth Ambulatory Status Independent Review of Systems Constitutional: Denies: Fever Respiratory: Reports: Non-productive cough, Shortness of breath, Wheezing Musculoskeletal: Denies: Neck pain Skin: Denies Rash Complete sys rev & neg: except as marked. GI: Reports: Abdominal pain (upper) Physical Exam Initial Vital Signs Vital Signs (First) Date Time Temp Pulse Resp B/P Pulse Ox O2 Delivery O2 Flow Rate FiO2 4/21/17 20:35 36.6 96 28 148/100 95 Room Air 11/12/16 21:46 2 Initial VS: Reviewed General/Constitutional: Awake, Alert Neck: Atraumatic, Supple, Full range of motion JVD Respiratory / Chest: Atraumatic, Breath sounds = bilat crackles in both lung millan Cardiovascular: Heart rate NL, Regular rhythm, Heart sounds NL ENT: Atraumatic, Airway patent, Mucous membranes moist Abdomen: Atraumatic, Soft abdominal tenderness Back: Atraumatic, Full range of motion Lower Extremity / Pelvis / MS: Atraumatic, Full range of motion Skin: Atraumatic, Color NL, No rash, Warm, Dry Neurologic: Oriented X3, Speech NL, No motor deficits, No sensory deficits Head / Eyes: Atraumatic, Normocephalic, PERRL, EOMI Upper Extremity / MS: Atraumatic, Full range of motion Psychiatric: Affect NL, Mood NL Interpretation & Diagnostics Lab Results Interpretation Result Diagram: 11/12/16213511/12/162135 Test 11/12/16 21:36 White Blood Count 8.5th/mm3 (3.8-10.1) Red Blood Count 4.33mil/mm3 (4.40-5.80) Hemoglobin 14.4g/dL (13.8-17.2) Hematocrit 42.8% (41.0-50.0) Mean Corpuscular Volume 98.8fL (81-100) Mean Corpuscular Hemoglobin 33.3pg (27.0-35.0) Mean Corpuscular Hemoglobin Concent 33.6% (32.0-37.0) Red Cell Distribution Width 14.3% (12.3-15.4) Platelet Count 263bil/L (150-400) Neutrophils (%) (Auto) 41.7% (40-74) Lymphocytes (%) (Auto) 38.0% (14-46) Monocytes (%) (Auto) 14.8% (4-12) Eosinophils (%) (Auto) 4.1% (0-5) Basophils (%) (Auto) 1.2% (0-3) Sodium Level 139mEq/L (134-144) Potassium Level 4.1mEq/L (3.5-5.2) Chloride Level 101mEq/L (97-108) Carbon Dioxide Level 25mmol/L (18-29) Blood Urea Nitrogen 19mg/dL (6-24) Creatinine 0.87mg/dL (0.76-1.27) Estimat Glomerular Filtration Rate 95mL/min (>59) Glucose Level 111mg/dL (60-99) Calcium Level 8.7mg/dL (8.5-10.1) Total Bilirubin 1.0mg/dL (0.0-1.2) Aspartate Amino Transf (AST/SGOT) 78U/L (0-50) Alanine Aminotransferase (ALT/SGPT) 61U/L (0-44) Alkaline Phosphatase 87U/L (25-160) Troponin T 0.044ug/L (0.0-0.011) Pro-B-Type Natriuretic Peptide 6728pg/mL (0-210) Total Protein 7.0g/dL (6.4-8.4) Albumin 3.3g/dL (3.4-5.0) Lipase 32U/L (13-60) Procalcitonin 0.11ng/mL (0.00-0.08) Pulse Oximetry Interpretation Pulse Oximetry Interpretation: 95% on room air ECG Interpretation ECG Interpretation: normal sinus rhythm with a rate of 91 incomplete LBBB LVH no STEMI Time: 21:29 Interpreted by: ED physician X-Ray Chest Interpretation Chest Xray Interpretation: IMPRESSION: Increased opacification in the left lung base compatible with progression of pneumonia. Dictated by: Anni Styles MD, PhD on 11/12/2016 at 21:44 Approved by: Anni Styles MD, PhD on 11/12/2016 at 21:45 Interpretation / Wet Read by: Interpret - Radiologist Re-Eval/Medical Decision Source of Hx: Old records Re-Evaluation/Progress : Time of Eval: 23:04 Patient Status: Condition improved Re-Evaluation/Progress Note: Pt rechecked, who is resting comfortably. He is informed of his radiology results, diagnosis, and the need for admission. The pt understands and agrees with the plan. All questions are addressed at this time. Consultation : Referral / Consult Name: Joe Wilkins MD Consulted With: Hospitalist Call Returned at: 22:56 Manager Inside: Agrees with eval, Agrees with plan, Accepts admit Note: Spoke with Dr. Fuimaono, hospitalist, regarding pt's case. Dr. Wilkins agrees with the evaluation and agrees to admit the pt. Counseled Regarding: Diagnosis, Lab results, Need for admission Discharge & Departure Impression: Primary Impression: Pneumonia Pneumonia type: due to unspecified organism Laterality: left Lung location : lower lobe of lung Qualified Code: J18.1 - Lobar pneumonia, unspecified organism Additional Impressions: Chest pain Chest pain type: unspecified Qualified Code: R07.9 - Chest pain, unspecified Elevated troponin Disposition: ADMITTED TO HOSPITAL Discharge Condition All VS Reviewed: Yes Condition: Stable Referrals: [facility] Joseibelia Attestation Portions of this note were transcribed by Nazia Wilks. I, Dr. Winslow personally performed the history, physical exam and medical decision-making; I reviewed and confirmed the accuracy of the information in the transcribed note. Signed by: Jong Almonte, 11/13/16 and 0018. copies to: [facility] Newton Winslow DO Nov 12, 2016 20:51 NAZIA WILKS Nov 12, 2016 21:16
[2016-11-12] MEDS ORDERED: Nitroglycerin 2% 1 Gm Ointment TOPICAL ONE (21:20)
[2016-11-12 21:42] LABS: BASOPHILS % (AUTO) 1.2 % (0-3); EOSINOPHILS % (AUTO) 4.1 % (0-5); MONOCYTES % (AUTO) 14.8 % (4-12); Mean Corpuscular Hemoglobin 33.3 pg (27.0-35.0); Mean Corpuscular Volume 98.8 fL (81-100); NEUTROPHILS % (AUTO) 41.7 % (40-74); Platelet Count 263 bil/L (150-400)
[2016-11-12 21:46] VITALS: BP 135/99; PULSE 93; RESP 34; O2SAT 94
--- NOTE | 2016-11-12 21:46 | DRSVH ---
PROCEDURE: X-RAY CHEST ONE VIEW, PORTABLE ([id number]) INDICATIONS: SHORTNESS OF BREATH TECHNIQUE: One view of the chest was acquired. COMPARISON: [facility], CR, XR CHEST 1VW (PORTABLE), 11/08/2016, 9:22. FINDINGS: Surgical changes and devices: None. Lungs and pleura: No pleural effusions or pneumothorax. Opacification the left lung base has increa sed compared to 11/08/16. Mediastinum: Mediastinal contours appear normal. Heart size is normal. Bones and chest wall: No suspicious bony lesions. Overlying soft tissues appear unremarkable. IMPRESSION: Increased opacification in the left lung base compatible with progression of pneumonia. Dictated by: Anni Styles MD, PhD on 11/12/2016 at 21:44 Approved by: Anni Styles MD, PhD on 11/12/2016 at 21:45
[2016-11-12] MEDS ORDERED: Piperacillin-Tazo 3.375 Gm Inj 3.375 GM in Dextrose 5% Minibag Plus 50 ML IV ONE (22:05)
[2016-11-12 22:24] LABS: TROPONIN T 0.044 ug/L (0.0-0.011)
[2016-11-12 22:27] VITALS: BP 138/75; PULSE 94; RESP 26; O2SAT 96
[2016-11-12] MEDS ORDERED: Polyethylene Glycol (PEG) 17 Gm Powder PO PRN (23:05)
[2016-11-12] MEDS ORDERED: Alum-Mag Hydrox-Simeth 30 mL Suspension PO PRN (23:05)
[2016-11-12 23:09] VITALS: BP 128/92; PULSE 90; RESP 28; O2SAT 98
[2016-11-12] MEDS ORDERED: VANCOMYCIN IV ONE ×2 (23:30)
[2016-11-12] MEDS ORDERED: SODIUM CHLORIDE IV ONE ×2 (23:30)
[2016-11-13] VITALS (8 sets, daily range): BP systolic 117–127; BP diastolic 86–90; PULSE 88–92; RESP 16–30; O2SAT 95–98
--- NOTE | 2016-11-13 00:09 | PCM.HPMED ---
Subjective Date of Service Nov 12, 2016 Primary Provider: Admitting Physician: Primary Care Physician: Carolina Chou MD Attending Physician: Admit Status: From the Emergency Department, Full Admit, [facility] Telemetry Chief Complaint: Shortness of breathe History of Present Illness: Amando Servin is a 60 year old with Hepatitis C, Chronic systolic heart failure with mod-severe reduced EF, smoker and prior history of methamphetamine abuse brought to [facility] emergency department by EMS complaining of shortness of breath and upper abdominal pain. Patient states he developed shortness of breathe shortly after leaving the hospital. Associated symptoms includes cough (productive, brownish sputum) and wheezing. He also reports chills and subjective fevers. No sick contacts reported or travel history. The abdominal pain is epigastric located, non radiating without any nausea or vomiting. Severity mild and intermittent. Denies any diarrhea. Denies any increasing leg edema The pt was discharged from [facility] two days ago. The pt stopped smoking five years ago and denies history of emphysema or COPD. He is not on oxygen at home. Previous smoker but does not have a diagnosis of COPD currently Case discussed with Dr Winslwo, Chest X ray showed pneumonia and elevated procalcitonin. Vancomycin and Zosyn ordered. Review of Systems: Pertinent positives as noted in HPI. All other systems were reviewed and are negative Allergies Coded Allergies: No Known Allergies (Verified Allergy, Unknown, 11/12/16) Home Medications From recent Discharge Summary Aspirin Chew (Aspirin Chew) 81 Mg Chew 81 MG PO DAILY Prescribed by: SHANTI LOPEZ MD Atorvastatin Calcium (Atorvastatin Calcium) 80 Mg Tablet 80 MG PO HS (Reported) Carvedilol (Carvedilol) 3.125 Mg Tablet 3.125 MG PO BIDWM Prescribed by: CHAKA BLUNT DO Clopidogrel (Clopidogrel) 75 Mg Tablet 75 MG PO DAILY Prescribed by: CHAKA BLUNT DO Furosemide (Furosemide) 20 Mg Tab 20 MG PO BID Prescribed by: CHAKA BLUNT DO Lisinopril (Lisinopril) 2.5 Mg Tablet 2.5 MG PO DAILY (Reported) Potassium Chloride (Potassium Chloride) 20 Meq Tab.er.prt 20 MEQ PO DAILY Prescribed by: MONA ZARATE MD Spironolactone (Spironolactone) 25 Mg Tablet 12.5 MG PO DAILY (Reported) PMH Cardiomyopathy, Non ischemic Hepatitis C Methamphetamine abuse Chronic systolic CHF . Surgical History Splenectomy Back surgery x2 Family History Grandfather of SD at age of 80 Father- Social History Hx Alcohol Use: No Hx Substance Use: Yes (meth use-pt states 3 months ago) Hx Tobacco Use: Yes Smoking Status: Former Smoker Living Arrangement: with Family Exam Vital Signs Vital Sign - Last Date Time Temp Pulse Resp B/P Pulse Ox O2 Delivery O2 Flow Rate FiO2 11/12/16 22:27 36.7 94 26 138/75 96 Nasal Cannula 2 Exam General: Alert, Oriented X3, Cooperative, No acute Distress, talking in full sentences Eyes: PERRLA, Scleral Anicteric Mouth: Mouth Normal, Mucous Membranes Moist/Morris Neck: Supple, no Thyromegaly, trachea central. Chest & Lungs: decreased breathe sounds at bases Cardiovascular: Normal S1, Normal S2, No Murmurs/Rubs/Gallops, Regular Rate/ Rhythm, (No JVD, no peripheral edema) Pulses: Radial (present and equal), Dorsalis Pedi (present and equal) Abdomen: Soft, Non-tender, Non-distended, Normoactive bowel tones. Musculoskeletal: Unremarkable. Normal range of motion, no swollen or erythematous joints Extremities: No edema, no cyanosis, no clubbing. Skin: No rashes. Warm and dry, no erythematous areas Neurological: Grossly neurologically intact, Normal Speech, Sensation Intact Lymphatic: Lymph nodes Cervical and Axillary not palpable Lab and Diagnostics Labs Laboratory Tests Test 11/12/16 21:36 White Blood Count 8.5th/mm3 (3.8-10.1) Red Blood Count 4.33mil/mm3 (4.40-5.80) Hemoglobin 14.4g/dL (13.8-17.2) Hematocrit 42.8% (41.0-50.0) Mean Corpuscular Volume 98.8fL (81-100) Mean Corpuscular Hemoglobin 33.3pg (27.0-35.0) Mean Corpuscular Hemoglobin Concent 33.6% (32.0-37.0) Red Cell Distribution Width 14.3% (12.3-15.4) Platelet Count 263bil/L (150-400) Neutrophils (%) (Auto) 41.7% (40-74) Lymphocytes (%) (Auto) 38.0% (14-46) Monocytes (%) (Auto) 14.8% (4-12) Eosinophils (%) (Auto) 4.1% (0-5) Basophils (%) (Auto) 1.2% (0-3) Sodium Level 139mEq/L (134-144) Potassium Level 4.1mEq/L (3.5-5.2) Chloride Level 101mEq/L (97-108) Carbon Dioxide Level 25mmol/L (18-29) Blood Urea Nitrogen 19mg/dL (6-24) Creatinine 0.87mg/dL (0.76-1.27) Estimat Glomerular Filtration Rate 95mL/min (>59) Glucose Level 111mg/dL (60-99) Calcium Level 8.7mg/dL (8.5-10.1) Total Bilirubin 1.0mg/dL (0.0-1.2) Aspartate Amino Transf (AST/SGOT) 78U/L (0-50) Alanine Aminotransferase (ALT/SGPT) 61U/L (0-44) Alkaline Phosphatase 87U/L (25-160) Troponin T 0.044ug/L (0.0-0.011) Pro-B-Type Natriuretic Peptide 6728pg/mL (0-210) Total Protein 7.0g/dL (6.4-8.4) Albumin 3.3g/dL (3.4-5.0) Lipase 32U/L (13-60) Procalcitonin 0.11ng/mL (0.00-0.08) Result Diagram: 11/12/16213511/12/162135 X-Rays, CTs and MRIs X-RAY CHEST ONE VIEW, PORTABLE 11/12 IMPRESSION: Increased opacification in the left lung base compatible with progression of pneumonia. Dictated by: Anni Styles MD, PhD on 11/12/2016 at 21:44 Approved by: Anni Styles MD, PhD on 11/12/2016 at 21:45 Assessment & Plan Amando Servin is a 60 year old with Hepatitis C, Chronic systolic heart failure with mod-severe reduced EF, smoker and prior history of methamphetamine abuse brought to [facility] emergency department by EMS complaining of shortness of breath and upper abdominal pain. 1. Healthcare associated pneumonia. Present on admission. Under therapy It was suspected that he may have pneumonia during recent admission but was not obvious clinically. Currently the patient clinic have respiratory symptoms and elevated procalcitonin. Meeting healthcare associated infections with recent hospitalization > 48 hours. Risk factors for MRSA and Pseudomonal infections. - continue Vancomycin, Cefepime and Levaquin IV for empiric antibiotics - Blood cultures, MRSA screen, Strep pneumonia - IV fluids resuscitations (monitor for fluid overload given heart failure history) - continue oxygen supplementation 2 Elevated troponin. Present on admission Chronic elevated based on review of her labs. Non ST Elevation myocardial infarction less likely - possible demand ischemia due to pneumonia 3 Chronic systolic heart failure with recent decompensation. Cardiomyopathy--ejection fraction is 15% to 20%. He has never been cathed. Most recent pharmacologic stress test with myocardial perfusion imaging, performed August 10, 2016, showed no evidence of ischemia or prior infarct. He had diffuse hypokinesis, EF 14% and normal radiopharmaceutical distribution. - continuing lisinopril and carvedilol - holding diuretics at least for tonight 4 Hepatitis C with chronic transaminitis - Pt states he contracted this from a transfusion a number of years ago. Hepatitis C with positive RNA with 5.8 log viral particles per mL, 780,000 units/mL quantitative hepatitis C PCR. Of note, HIV was nonreactive as of June 2014. Hep B surface antigen was negative. Core antibody was negative. - this explains elevated transaminase levels on labs 5 Methamphetamine abuse - States that he has not used in many years but recent Urine drug screen was positive for Meth - Acetaminophen as needed for mild pain/fever/headache - Bowel regimen as needed - Antiemetic as needed Patient admitted under inpatient status with expected length of stay > 2 midnights for severity of present symptoms, complexities of treatment plan and risk for adverse event . Resuscitation Status: DNR/DNI:Do Not Resuscitate/Intubate Joe Wilkins MD Nov 12, 2016 23:10
[2016-11-13] MEDS: 0.9% Sodium Chloride 1,000 ML IV SCH ×2 (00:15→09:02)
--- NOTE | 2016-11-13 00:42 | NUR ---
Admission Patient admitted to [facility] 2005 at 2345. A&Ox3, on 2L O2 via nasal cannula with SpO2 95-98%. Reports no pain at present, but states it is painful to take a deep breath. NS and Iv vancomycin hung per orders. Admission documentation completed. Pharmacist at bedside to confirm patient's home medications. Continue to monitor.
--- NOTE | 2016-11-13 00:57 | PCM.CONPHA ---
Subjective Date of Service: Nov 13, 2016 Requesting Provider: Joe Wilkins MD Shortness of breathe Reason for Pharmacy Consult: Vancomycin Dosing Objective Vital Signs Date Time Temp Pulse Resp B/P Pulse Ox O2 Delivery O2 Flow Rate FiO2 11/13/16 00:05 36.5 89 23 117/89 98 Nasal Cannula 2.00 11/12/16 23:09 90 28 128/92 98 Nasal Cannula 2 11/12/16 22:27 36.7 94 26 138/75 96 Nasal Cannula 2 11/12/16 21:46 93 34 135/99 94 Nasal Cannula 2 11/12/16 20:35 36.6 96 28 148/100 95 Room Air Weight (Kilograms): 82.500 Height (Feet): 5 Height (Inches): 10.00 Test 11/12/16 21:36 White Blood Count 8.5th/mm3 (3.8-10.1) Red Blood Count 4.33mil/mm3 (4.40-5.80) Hemoglobin 14.4g/dL (13.8-17.2) Hematocrit 42.8% (41.0-50.0) Mean Corpuscular Volume 98.8fL (81-100) Mean Corpuscular Hemoglobin 33.3pg (27.0-35.0) Mean Corpuscular Hemoglobin Concent 33.6% (32.0-37.0) Red Cell Distribution Width 14.3% (12.3-15.4) Platelet Count 263bil/L (150-400) Neutrophils (%) (Auto) 41.7% (40-74) Lymphocytes (%) (Auto) 38.0% (14-46) Monocytes (%) (Auto) 14.8% (4-12) Eosinophils (%) (Auto) 4.1% (0-5) Basophils (%) (Auto) 1.2% (0-3) Sodium Level 139mEq/L (134-144) Potassium Level 4.1mEq/L (3.5-5.2) Chloride Level 101mEq/L (97-108) Carbon Dioxide Level 25mmol/L (18-29) Blood Urea Nitrogen 19mg/dL (6-24) Creatinine 0.87mg/dL (0.76-1.27) Estimat Glomerular Filtration Rate 95mL/min (>59) Glucose Level 111mg/dL (60-99) Calcium Level 8.7mg/dL (8.5-10.1) Total Bilirubin 1.0mg/dL (0.0-1.2) Aspartate Amino Transf (AST/SGOT) 78U/L (0-50) Alanine Aminotransferase (ALT/SGPT) 61U/L (0-44) Alkaline Phosphatase 87U/L (25-160) Troponin T 0.044ug/L (0.0-0.011) Pro-B-Type Natriuretic Peptide 6728pg/mL (0-210) Total Protein 7.0g/dL (6.4-8.4) Albumin 3.3g/dL (3.4-5.0) Lipase 32U/L (13-60) Procalcitonin 0.11ng/mL (0.00-0.08) Assessment/Plan Assessment/Plan A: * Vancomycin dosing by pharmacy for 60 y/o man with healthcare associated pneumonia * He is also being started on Levaquin and cefepime * His estimated CrCl is 94 mL/min (Cockcroft & Gault) * Estimated vancomycin half-life is 8 hours and estimated Vd is 53 liters P: * Starting vancomycin 1500 mg IV every 12 hours * Target a vancomycin trough of 15 - 20 mcg/mL * Drawing a trough level prior to the fourth dose Thank you. Pharmacy will continue to follow this patient. Radha Cole, PharmD Radha Cole Nov 13, 2016 00:57
[2016-11-13 02:52] LABS: BASOPHILS % (AUTO) 0.8 % (0-3); EOSINOPHILS % (AUTO) 2.9 % (0-5); MONOCYTES % (AUTO) 14.4 % (4-12); Mean Corpuscular Hemoglobin 33.1 pg (27.0-35.0); Mean Corpuscular Volume 99.5 fL (81-100); NEUTROPHILS % (AUTO) 48.2 % (40-74); Platelet Count 243 bil/L (150-400)
[2016-11-13] MEDS ORDERED: levoFLOXacin Inj 750 MG in IV Premix 1 EACH IV SCH (08:30)
[2016-11-13] MEDS: Vancomycin Dose per Pharmacist XX SCH (08:30)
[2016-11-13] MEDS: Cefepime Inj 2,000 MG in Dextrose 5% Minibag Plus 50 ML IV SCH ×2 (08:42→21:04)
--- NOTE | 2016-11-13 10:20 | NUR ---
Social Work: Screen D: Per EMR review, pt is a 60 year old male admitted for pneumonia/Cardiomyopathy. Pt is CHPJosh OLIVARES. [facility]. NOK Is Bessie Servin, . Advanced directives not completed- information provided to pt by CONTAINER PACKER OPERATOR. Pt is a readmit and was discharged home on 11/08 with no sw needs. Readmit score not entered at this time. Pt lives in [place] with his spouse. He is I with ADLs at baseline. Pt has a history of Meth Use. UDS is positive for AMP. Pt denies any recent use and states his last meth use was over a year ago. Pt declined CD resources from CONTAINER PACKER OPERATOR including bedside assessment from [place]. Pt is not on any home AMP medications, per H&P. A: Pt who is I at baseline. P: Anticipate pt to discharge home when medically stable. CONTAINER PACKER OPERATOR to continue to follow. YUAN Cameron
[2016-11-13 11:38] LABS: APPEARANCE,URINE CLEAR (CLEAR,HAZY); COLOR,URINE YELLOW (YELLOW); OCCULT BLOOD,URINE NEGATIVE (NEGATIVE); PH,URINE 6.5 (5.0-8.0); UROBILINOGEN,URINE NORMAL (NORMAL)
[2016-11-13] MEDS: Furosemide 10 mg/mL 10 mL Inj IVPUSH SCH ×2 (11:50→15:57)
[2016-11-13 12:28] LABS: Magnesium 1.6 mg/dL (1.6-2.6)
--- NOTE | 2016-11-13 15:27 | PCM.PNMED ---
Subjective Date of Service Nov 13, 2016 Subjective 60-year-old male with methamphetamine induced NYHA IV systolic CHF presents with acute dyspnea, increased productive cough Patient was acutely more dyspneic this morning after receiving fluid resuscitation for sepsis last night. Continues to have mildly productive cough with white phlegm. Epigastric pain is improved. Exam Vital Signs Vital Sign - Last Date Time Temp Pulse Resp B/P Pulse Ox O2 Delivery O2 Flow Rate FiO2 11/13/16 13:11 36.6 89 19 127/87 98 Nasal Cannula 2.00 Intake and Output 11/12/16 11/12/16 11/13/16 Cumulative From/Thru 15:00 23:00 07:00 11/12/16 20:35 - 11/13/16 06:55 Intake Total 1731 ml 1731 ml Output Total 250 ml 250 ml Balance 1481 ml 1481 ml Intake Oral 800 ml 800 ml IV Total 931 ml 931 ml Output Urine Total 250 ml 250 ml Exam General: Disheveled middle-aged man in moderate distress HEENT: sclerae anicteric, oral mucosa moist Neck: JVD 8 centimeters above sternal notch Chest: Coarse and scattered crackles two thirds bilaterally Cardiac: S1S2, cannot appreciate murmur Abdomen: BS normal, non-tender Extremities: No significant edema Neuro: A&O, cranial nerves symmetric, motor strength 5/5, coordination normal IVs and Medications Medications Reviewed: Medications were reviewed in detail Lab and Diagnostics Result Diagram: 11/13/16 0215 11/13/16 1100 X-Rays, CTs and MRIs X-RAY CHEST ONE VIEW, PORTABLE 11/12 IMPRESSION: Increased opacification in the left lung base compatible with progression of pneumonia. Dictated by: Anni Styles MD, PhD on 11/12/2016 at 21:44 Approved by: Anni Styles MD, PhD on 11/12/2016 at 21:45 Assessment & Plan Amando Servin is a 60 year old with Hepatitis C, chronic NYHA IV systolic CHF , smoker and prior history of methamphetamine who presents with shortness of breath and upper abdominal pain. Active acute problems: 0. Acute on chronic respiratory failure with hypoxia. - Management for healthcare associated pneumonia; with careful fluid management due to CHF 1. Healthcare associated pneumonia. Present on admission. Under therapy. Previous chest x-rays interpreted as possible pneumonia, although there were no clinical symptoms. Currently the patient seems to have more infectious respiratory symptoms with mildly elevated procalcitonin. Chest x-ray, corrected for difference in exposure, is minimally changed from previous. Meeting healthcare associated infections with recent hospitalization > 48 hours. Risk factors for MRSA and Pseudomonal infections. - continue Vancomycin, Cefepime and Levaquin IV for empiric antibiotics - Blood cultures, MRSA screen, Strep pneumonia - Restrict IV fluids - continue oxygen supplementation 2 Elevated troponin. Present on admission. Chronic mild elevation on past labs, slightly increased to 0.044 on admission. Most likely cardiac strain due to acute hypoxic respiratory failure. Non ST Elevation myocardial infarction less likely - possible demand ischemia due to pneumonia 3 Chronic systolic heart failure with recent decompensation. Cardiomyopathy-- ejection fraction is 15% to 20%. ost recent pharmacologic stress test with myocardial perfusion imaging, performed August 10, 2016, showed no evidence of ischemia or prior infarct. He had diffuse hypokinesis, EF 14% and normal radiopharmaceutical. He was experiencing orthopnea and acutely worsened dyspnea after aggressive IV hydration overnight. - continuing lisinopril and carvedilol - Resume intravenous diuretics Resolving, stable and/or chronic problems: 4 Hepatitis C with chronic transaminitis - Pt states he contracted this from a transfusion a number of years ago. Hepatitis C with positive RNA with 5.8 log viral particles per mL, 780,000 units/mL quantitative hepatitis C PCR. Of note, HIV was nonreactive as of June 2014. Hep B surface antigen was negative. Core antibody was negative. - this explains elevated transaminase levels on labs 5 Methamphetamine abuse - States that he has not used in many years but recent Urine drug screen was positive for Meth - There is some embolism prophylaxis with Lovenox - Acetaminophen as needed for mild pain/fever/headache - Bowel regimen as needed - Antiemetic as needed Patient admitted under inpatient status with expected length of stay > 2 midnights for severity of present symptoms, complexities of treatment plan and risk for adverse event . VTE Prophylaxis: Sub-Q Enoxaparin Resuscitation Status: DNR/DNI:Do Not Resuscitate/Intubate Time spent 40 minutes Jay Schmid MD Nov 13, 2016 15:26
--- NOTE | 2016-11-13 18:15 | NUR ---
Respiration Pt. was c/o SOB this morning with 2L NC on and SpO2 in the high 90s. MD ordered lasix 100mg (10mL) to be given IV push. Pt. this afternoon states he is no longer feeling SOB like he did this morning and is breathing better. Pt. states no c/o pain, CP at this this time.
[2016-11-14] VITALS (10 sets, daily range): BP systolic 106–125; BP diastolic 66–91; PULSE 69–94; RESP 16–20; O2SAT 93–99
--- NOTE | 2016-11-14 04:00 | NUR ---
Sleep/Respiratory Patient sleeping overnight. Rouses easily for care. Reports less dyspnea, feels better than yesterday. Maintaining SpO2 96% on 2L via nasal cannula. Continue to monitor.
[2016-11-14] MEDS: Cefepime Inj 2,000 MG in Dextrose 5% Minibag Plus 50 ML IV SCH ×2 (08:14→20:02)
[2016-11-14] MEDS: Furosemide 10 mg/mL 10 mL Inj IVPUSH SCH (08:15)
[2016-11-14] MEDS: Vancomycin Dose per Pharmacist XX SCH (08:30)
[2016-11-14] MEDS ORDERED: Vancomycin Serum Trough XX ONE (09:30)
--- NOTE | 2016-11-14 09:51 | DRSVH ---
PROCEDURE: X-RAY CHEST, TWO VIEWS ([id number]) INDICATIONS: CHF vs. PNA TECHNIQUE: 2 views of the chest were acquired. COMPARISON: [facility], CR, XR CHEST 1VW (PORTABLE), 11/12/2016, 21:36. [facility], CR, XR CHEST 2VW, 04/29/2016, 9:49. FINDINGS: Surgical changes and devices: None. Lungs and pleura: Increased opacification noted in the left lung base no essentially change compared to 11/12/16. Small left-sided pleural effusion is noted. Mediastinum: Mediastinal contours are normal. Heart size is enlarged. Bones and chest wall: No suspicious bony abnormalities. Soft tissues appear unremarkable. IMPRESSION: Opacification left lung base not significantly changed compared to prior examination sharlene ins suspicious for pneumonia. Dictated by: Anni Styles MD, PhD on 11/14/2016 at 9:48 Approved by: Anni Styles MD, PhD on 11/14/2016 at 9:50
--- NOTE | 2016-11-14 10:56 | PCM.PHAPRO ---
Progress Date of Service: Nov 14, 2016 Assessment/Plan A: Vancomycin dosing by pharmacy for 60 y/o man with healthcare associated pneumonia He is also ON cefepime MRSA screen negative paged with recommendation to d/c drug His estimated CrCl is 94 mL/min (Cockcroft & Gault) Estimated vancomycin half-life is 8 hours and estimated Vd is 53 liters P: Started vancomycin 1500 mg IV every 12 hours Target a vancomycin trough of 15 - 20 mcg/mL Trough level prior to 4th dose was 21.7 which is higher than target Will redose patient at Vancomycin 1250 mg Q12H Next scheduled trough on 11/16 @0930 Thank you. Pharmacy will continue to follow this patient. faith, PharmD Virgen Flaherty PharmD Nov 14, 2016 10:56
--- NOTE | 2016-11-14 12:57 | PCM.PNMED ---
Subjective Date of Service Nov 14, 2016 Subjective 60-year-old male with methamphetamine induced NYHA IV systolic CHF presents with acute dyspnea, increased productive cough Breathing comfortably, much improved with diuresis after acute pulmonary edema yesterday. Continues to have mildly productive cough with white phlegm. Epigastric pain is improved. Exam Vital Signs Vital Sign - Last Date Time Temp Pulse Resp B/P Pulse Ox O2 Delivery O2 Flow Rate FiO2 11/14/16 11:54 36.8 78 18 120/88 94 Room Air 11/14/16 08:03 2.00 Intake and Output 11/13/16 11/13/16 11/14/16 Cumulative From/Thru 14:59 22:59 06:59 11/12/16 20:35 - 11/14/16 05:12 Intake Total 1509 ml 1629 ml 4869 ml Output Total 400 ml 2450 ml 3100 ml Balance 1109 ml -821 ml 1769 ml Intake Oral 640 ml 1038 ml 2478 ml IV Total 869 ml 591 ml 2391 ml Output Urine Total 400 ml 2450 ml 3100 ml Exam General: middle-aged man in no distress HEENT: sclerae anicteric, oral mucosa moist Neck: JVD 3 centimeters above sternal notch, improved since yesterday Chest: Coarse and scattered crackles two thirds bilaterally Cardiac: S1S2, cannot appreciate murmur, no S3 Abdomen: BS normal, non-tender Extremities: No significant edema Neuro: A&O, cranial nerves symmetric, motor strength 5/5, coordination normal IVs and Medications Medications Reviewed: Medications were reviewed in detail Lab and Diagnostics Result Diagram: 11/13/1621411/14/164 X-Rays, CTs and MRIs X-RAY CHEST ONE VIEW, PORTABLE 11/12 IMPRESSION: Increased opacification in the left lung base compatible with progression of pneumonia. Dictated by: Anni Styles MD, PhD on 11/12/2016 at 21:44 Approved by: Anni Styles MD, PhD on 11/12/2016 at 21:45 Assessment & Plan Amando Servin is a 60 year old with Hepatitis C, chronic NYHA IV systolic CHF , smoker and prior history of methamphetamine who presents with shortness of breath and upper abdominal pain. Active acute problems: 0. Acute on chronic respiratory failure with hypoxia. - Management for healthcare associated pneumonia; with careful fluid management due to CHF 1. Healthcare associated pneumonia. Present on admission. Under therapy. Chest x-ray, confirms left lower lobe infiltrate. Meeting healthcare associated infections with recent hospitalization > 48 hours. Risk factors for MRSA and Pseudomonal infections. - continue Vancomycin, Cefepime and Levaquin IV for empiric antibiotics - Blood cultures, MRSA screen, Strep pneumonia - Maintain neutral fluid balance, discontinue IV fluids and push oral intake - continue oxygen supplementation as needed but weaned to room air 2 Elevated troponin. Present on admission. Chronic mild elevation on past labs, slightly increased to 0.044 on admission. Most likely cardiac strain due to acute hypoxic respiratory failure. Non ST Elevation myocardial infarction less likely - possible demand ischemia due to pneumonia 3 Acute on Chronic systolic heart failure with recent decompensation. Cardiomyopathy--ejection fraction is 15% to 20%. Recent Lexiscan EF 14% and normal radiopharmaceutical uptake. The 24 hours after admission, He was experiencing orthopnea and acutely worsened dyspnea after aggressive IV hydration, which is now improved with 24 hours of high-dose diuretic. - continuing lisinopril and carvedilol - Return to usual daily dose of loop diuretic and spironolactone - Discontinue metolazone Resolving, stable and/or chronic problems: 4 Hepatitis C with chronic transaminitis - Pt states he contracted this from a transfusion a number of years ago. Hepatitis C with positive RNA with 5.8 log viral particles per mL, 780,000 units/mL quantitative hepatitis C PCR. Of note, HIV was nonreactive as of June 2014. Hep B surface antigen was negative. Core antibody was negative. - No further active management at this time 5 Methamphetamine abuse - States that he has not used in many years but recent Urine drug screen was positive for Meth - There is some embolism prophylaxis with Lovenox - Acetaminophen as needed for mild pain/fever/headache - Bowel regimen as needed - Antiemetic as needed Patient admitted under inpatient status with expected length of stay > 2 midnights for severity of present symptoms, complexities of treatment plan and risk for adverse event. May transition to oral fluoroquinolone on 11/15 and DC home if clinically stable on no oxygen requirement. . VTE Prophylaxis: Sub-Q Enoxaparin Resuscitation Status: DNR/DNI:Do Not Resuscitate/Intubate Time spent 35 minutes Jay Schmid MD Nov 14, 2016 12:57
--- NOTE | 2016-11-14 17:42 | NUR ---
Respiratory Pt. denies SOB throughout shift and is RA 93%-94%. Pts. vancomycin troph this morning was 21.7. Pt. is cooperative with care and is appetite has increased.
[2016-11-15] VITALS (9 sets, daily range): BP systolic 92–110; BP diastolic 61–83; PULSE 68–90; RESP 16–24; O2SAT 91–98
--- NOTE | 2016-11-15 06:17 | NUR ---
Activity/Respiratory Patient up to ambulate in the halls twice in the evening; FWW and standby assist. Maximum distance approximately 800 ft without difficulty. Patient then began to feel fatigued and sat down to rest. Single episode of shortness of breath at rest overnight; patient put implementation services analyst light at 0515 to report feeling short of breath. SpO2 had been 90-94% on room air. 2L by nasal cannula applied and SpO2 increased to 97-98%. Continue to monitor.
[2016-11-15] MEDS: levoFLOXacin 750 mg Tablet PO SCH (08:18)
--- NOTE | 2016-11-15 11:29 | NUR ---
Social Work Note - Readiness for Discharge: D/A: Pt discussed in rounds, likely to discharge home tomorrow. SW met with the Pt to discuss discharge planning. Pt denies any needs at this time. Pt discussed feelings of depression prior to his hospitalization associated with his recent illness, Pt reports that he is feeling much better and is hopeful to discharge home tomorrow. Pt provided with Crisis Care Line to call if he feels depressed again and [facility]/CD resources for extra support. Pt denies any feelings of self harm, denies SI. SW to follow if needs arise. P: Pt likely to discharge home tomorrow with family providing POV transportation. Pt denies any needs at this time. Pt provided with Crisis Care Line and [facility] resources. SW to follow if needs arise. Janeth Castano MSW Generator Operator YUAN Wood
--- NOTE | 2016-11-15 12:10 | PCM.PNMED ---
Subjective Date of Service Nov 15, 2016 Subjective 60-year-old male with methamphetamine induced NYHA IV systolic CHF presents with acute dyspnea, increased productive cough Breathing comfortably, reporting increased cough. Exam Vital Signs Vital Sign - Last Date Time Temp Pulse Resp B/P Pulse Ox O2 Delivery O2 Flow Rate FiO2 11/15/16 08:58 88 11/15/16 07:55 37.0 16 106/83 94 Room Air 11/14/16 22:54 2.00 Intake and Output 11/14/16 11/14/16 11/15/16 Cumulative From/Thru 15:00 23:00 07:00 11/12/16 20:35 - 11/15/16 06:33 Intake Total 1060 ml 1510 ml 7439 ml Output Total 3580 ml 2050 ml 8730 ml Balance -2520 ml -540 ml -1291 ml Intake Oral 718 ml 1200 ml 4396 ml IV Total 342 ml 310 ml 3043 ml Output Urine Total 3580 ml 2050 ml 8730 ml # Voids 7 7 Exam General: middle-aged man in no distress HEENT: sclerae anicteric, oral mucosa moist Neck: JVD 4 centimeters above sternal notch Chest: Basilar crackles Cardiac: S1S2, cannot appreciate murmur, no S3 Abdomen: BS normal, non-tender Extremities: No significant edema Neuro: A&O, cranial nerves symmetric, motor strength 5/5, coordination normal IVs and Medications Medications Reviewed: Medications were reviewed in detail Lab and Diagnostics Result Diagram: 11/13/1621411/14/16 0214 X-Rays, CTs and MRIs X-RAY CHEST ONE VIEW, PORTABLE 11/12 IMPRESSION: Increased opacification in the left lung base compatible with progression of pneumonia. Dictated by: Anni Styles MD, PhD on 11/12/2016 at 21:44 Approved by: Anni Styles MD, PhD on 11/12/2016 at 21:45 Assessment & Plan Amando Servin is a 60 year old with Hepatitis C, chronic NYHA IV systolic CHF , smoker and prior history of methamphetamine who presents with shortness of breath and upper abdominal pain. Active acute problems: #. Acute on chronic respiratory failure with hypoxia. Increased cough. Left lower lobe infiltrate on chest x-ray - Management for healthcare associated pneumonia; with careful fluid management due to CHF #. Healthcare associated pneumonia. Present on admission. Under therapy. Chest x-ray, confirms left lower lobe infiltrate. Meeting healthcare associated infections with recent hospitalization > 48 hours. Risk factors for MRSA and Pseudomonal infections. - discontinue Vancomycin, Cefepime and Levaquin IV for empiric antibiotics - Continue by mouth Levaquin 5 day course total - continue oxygen supplementation as needed but weaned to room air #. Acute on Chronic systolic heart failure with recent decompensation. Cardiomyopathy--ejection fraction is 15% to 20%. Recent Lexiscan EF 14% and normal radiopharmaceutical uptake. The 24 hours after admission, He experienced exacerbation after fluid resuscitation for septic pneumonia picture on admission. Now has diuresed adequately and still has increased cough. - Slight increase in lisinopril to 5 mg and carvedilol to 6.25 mg, both twice daily - Return to 20 mg Lasix and increase spironolactone from 12.5-25 mg - Monitor today and if stable discharge home tomorrow Resolving, stable and/or chronic problems: #. Elevated troponin. Present on admission. Chronic mild elevation on past labs , slightly increased to 0.044 on admission. Most likely cardiac strain due to acute hypoxic respiratory failure. Non ST Elevation myocardial infarction less likely - possible demand ischemia due to pneumonia #. Hepatitis C with chronic transaminitis - Pt states he contracted this from a transfusion a number of years ago. Hepatitis C with positive RNA with 5.8 log viral particles per mL, 780,000 units/mL quantitative hepatitis C PCR. Of note, HIV was nonreactive as of June 2014. Hep B surface antigen was negative. Core antibody was negative. - No further active management at this time #. Methamphetamine abuse - States that he has not used in many years but recent Urine drug screen was positive for Meth - DVT embolism prophylaxis with Lovenox - Acetaminophen as needed for mild pain/fever/headache - Bowel regimen as needed - Antiemetic as needed Patient admitted under inpatient status with expected length of stay > 2 midnights for severity of present symptoms, complexities of treatment plan and risk for adverse event. May transition to oral fluoroquinolone on 11/15 and DC home on 11/16 if clinically stable on no oxygen requirement. . VTE Prophylaxis: Sub-Q Enoxaparin Resuscitation Status: DNR/DNI:Do Not Resuscitate/Intubate Time spent 35 minutes Jay Schmid MD Nov 15, 2016 12:10
--- NOTE | 2016-11-15 21:42 | NUR ---
chest pain 2129: c/o 10/01 left epigastric/chest pain. non-radiating, sharp. no sob/dyspnea. prn apap given. Stat EKG ordered. notified MD of above, as well as patient admitted w/ elevated trops, which appears to be chronic per MD admission note. no new orders at this time. spo2 90 RA, o2 applied via nc at 2lpm, now mid 90's. cont pulse ox applied. b/p 90/60's which has been patient's trend. EKG reviewed w/ primer charger. no sig changes from last exam. 2144: patient reports 08/03. instructed to inform nursing if pain increases or changes. states he understands. call light w/in reach. Addendum: 11/16/16 at 0600 by REMBERTO BOATENG RN no further c/o chest pain.
[2016-11-16 03:29] VITALS: BP 109/80; PULSE 86; RESP 16; O2SAT 97
--- NOTE | 2016-11-16 06:00 | NUR ---
Resp/o2 needs 2200: SOB w/ exertion. amb hallway, spo2 90% RA. o2 via 2LPM via NC, spo2 mid 90's. GROUP PROGRAM MANAGER applied. 0200: amb hallway, no SOB this time. tolerating RA, spo2 99%. lung sounds much improved.
[2016-11-16 07:35] VITALS: BP 106/58; PULSE 89; PULSE 91; RESP 20; O2SAT 96
[2016-11-16] MEDS: levoFLOXacin 750 mg Tablet PO SCH (07:45)
[2016-11-16] MEDS ORDERED: Vancomycin Serum Trough XX ONE (09:30)
[2016-11-16 10:31] VITALS: PULSE 80
[2016-11-16] MEDS ORDERED: CARV6.252 PO (10:51)
[2016-11-16] MEDS ORDERED: SPIR25TA PO (10:51)
[2016-11-16] MEDS ORDERED: LEVO750T9 PO (10:51)
--- NOTE | 2016-11-16 10:58 | PCM.DIMED ---
Discharge Instructions Date of Service Nov 16, 2016 Dates of Hospitalization Nov 12, 2016 at 23:12 Discharge Diagnosis Discharge Diagnosis Pneumonia, left lower lobe, healthcare acquired pneumonia; acute on chronic systolic congestive heart failure NYHA III; methamphetamine dependence disorder Medication Instructions The dosages of 2 of your heart medicines have been increased. Carvedilol was 3.125 mg twice daily and has been increased to 6.25 mg twice daily. Spironolactone was 12.5 mg daily and has been increased to 25 mg daily. These medication increases should help reduce shortness of breath. They may lower your blood pressure. If you notice that you are dizzy when you stand up, then you should get your blood pressure checked. Contact one of your doctors for medication adjustment if it the systolic blood pressure is lower than 90 mmHg or if you have intolerable lightheadedness. You have 2 more doses of levofloxacin antibiotics to finish for your pneumonia. A prescription for levofloxacin has been sent to your [facility] pharmacy along with the other new prescriptions for cardiac medications. Diet Other (strict low-sodium diet) Activity Other (daily walking or mild aerobic exercise) Patient Instructions We strongly encourage you not to use any methamphetamine cocaine or other substances due to the severity of your heart disease. Check your weight every day and write it down. If she gain more than 4 pounds over 2 days, then you need an increase in your furosemide diuretic. Follow-up Provider: Carolina Chou MD Follow-up with PCP in: Other (at your previously scheduled appointment for follow-up in the next few weeks.) Jay Schmid MD Nov 16, 2016 10:58
--- NOTE | 2016-11-16 11:54 | NUR ---
Social Work Note -Discharge Data: EMR reviewed. Pt is on day 4 of hospitalization for pneumonia per H&P. SW has provided pt with outpt MH/CD resources. Pt denies any feelings of self harm, denies SI. Pt to discharge home with family to transport via POV. No discharge needs. 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 Plan: SW has provided pt with outpt MH/CD resources. Pt denies any feelings of self harm, denies SI. Pt to discharge home with family to transport via POV. No discharge needs. Fidelia Ayala SENIOR GRANTS OFFICER
--- NOTE | 2016-11-16 12:02 | NUR ---
Discharge Pt left at 1200 with family friend via private car. Discharge instructions gone over and understood, all questions answered. IVx2 and tele removed. Prescriptions sent to [facility] and pt aware. Changes in medications gone over and understood.
--- NOTE | 2016-11-18 17:09 | PCM.DC.MED ---
Discharge Summary Date of Service Nov 16, 2016 Dates of Hospitalization Date of Hospital Admission Nov 12, 2016 at 23:12 Date of Discharge: Nov 16, 2016 Providers: Admitting Physician: Joe Wilkins MD Primary Care Physician: Carolina Chou MD Attending Physician: Joe Wilkins MD Diagnosis at Time of Discharge Diagnosis at Time of Discharge Pneumonia, left lower lobe, healthcare acquired pneumonia; acute on chronic systolic congestive heart failure NYHA III; methamphetamine dependence disorder Procedures XRay, CTs & MRIs X-RAY CHEST ONE VIEW, PORTABLE 11/12 IMPRESSION: Increased opacification in the left lung base compatible with progression of pneumonia. Dictated by: Anni Styles MD, PhD on 11/12/2016 at 21:44 Approved by: Anni Styles MD, PhD on 11/12/2016 at 21:45 Brief History HPI (per admission note): Amando Servin is a 60 year old with Hepatitis C, Chronic systolic heart failure with mod-severe reduced EF, smoker and prior history of methamphetamine abuse brought to [facility] emergency department by EMS complaining of shortness of breath and upper abdominal pain. Patient states he developed shortness of breathe shortly after leaving the hospital. Associated symptoms includes cough (productive, brownish sputum) and wheezing. He also reports chills and subjective fevers. No sick contacts reported or travel history. The abdominal pain is epigastric located, non radiating without any nausea or vomiting. Severity mild and intermittent. Denies any diarrhea. Denies any increasing leg edema The pt was discharged from [facility] two days ago. The pt stopped smoking five years ago and denies history of emphysema or COPD. He is not on oxygen at home. Previous smoker but does not have a diagnosis of COPD currently Case discussed with Dr Winslow, Chest X ray showed pneumonia and elevated procalcitonin. Vancomycin and Zosyn ordered. Hospital Course #. Acute on chronic respiratory failure with hypoxia. Increased cough. Left lower lobe infiltrate on chest x-ray - Management for healthcare associated pneumonia - careful fluid management due to CHF #. Healthcare associated pneumonia. Present on admission. Under therapy. Chest x-ray, confirms left lower lobe infiltrate. Meeting healthcare associated infections with recent hospitalization > 48 hours. Risk factors for MRSA and Pseudomonal infections. - discontinue Vancomycin, Cefepime and Levaquin IV for empiric antibiotics - Continue by mouth Levaquin 5 day course total - weaned to room air #. Acute on Chronic systolic heart failure with recent decompensation. Cardiomyopathy--ejection fraction is 15% to 20%. Recent Lexiscan EF 14% and normal radiopharmaceutical uptake. The 24 hours after admission, He experienced exacerbation after fluid resuscitation for septic pneumonia picture on admission. Now has diuresed adequately and still has increased cough. - Slight increase incarvedilol to 6.25 mg, both twice daily - Return to 20 mg Lasix and increase spironolactone from 12.5 to 25 mg prior to discharge - continue lisinopril 2.5 mg and - Monitored today 1 day on these meds prior to discharge home #. Elevated troponin. Present on admission. Chronic mild elevation on past labs , slightly increased to 0.044 on admission. Most likely cardiac strain due to acute hypoxic respiratory failure. Non ST Elevation myocardial infarction less likely - possible demand ischemia due to pneumonia #. Hepatitis C with chronic transaminitis - Pt states he contracted this from a transfusion a number of years ago. Hepatitis C with positive RNA with 5.8 log viral particles per mL, 780,000 units/mL quantitative hepatitis C PCR. Of note, HIV was nonreactive as of June 2014. Hep B surface antigen was negative. Core antibody was negative. - No further active management at this time #. Methamphetamine abuse - States that he has not used in many years but recent Urine drug screen was positive for Meth . Exam Vital Signs (Last) Date Time Temp Pulse Resp B/P Pulse Ox O2 Delivery O2 Flow Rate FiO2 11/16/16 10:31 80 11/16/16 07:35 36.7 20 106/58 96 11/16/16 03:29 Room Air 11/15/16 22:54 2.00 Exam General: middle-aged man in no distress HEENT: sclerae anicteric, oral mucosa moist Neck: JVD 3-4 centimeters above sternal notch Chest: Basilar crackles L base Cardiac: S1S2, cannot appreciate murmur, no S3 Abdomen: BS normal, non-tender Extremities: No significant edema Neuro: A&O, cranial nerves symmetric, motor strength 5/5, coordination normal Test 11/12/16 21:36 11/13/16 02:15 11/13/16 09:20 11/13/16 11:00 Total Bilirubin 1.0mg/dL (0.0-1.2) Aspartate Amino Transf (AST/SGOT) 78U/L (0-50) Alanine Aminotransferase (ALT/SGPT) 61U/L (0-44) Alkaline Phosphatase 87U/L (25-160) Troponin T 0.044ug/L (0.0-0.011) Total Protein 7.0g/dL (6.4-8.4) Albumin 3.3g/dL (3.4-5.0) Lipase 32U/L (13-60) White Blood Count 8.9th/mm3 (3.8-10.1) Red Blood Count 3.99mil/mm3 (4.40-5.80) Hemoglobin 13.2g/dL (13.8-17.2) Hematocrit 39.7% (41.0-50.0) Mean Corpuscular Volume 99.5fL (81-100) Mean Corpuscular Hemoglobin 33.1pg (27.0-35.0) Mean Corpuscular Hemoglobin Concent 33.2% (32.0-37.0) Red Cell Distribution Width 14.3% (12.3-15.4) Platelet Count 243bil/L (150-400) Neutrophils (%) (Auto) 48.2% (40-74) Lymphocytes (%) (Auto) 33.4% (14-46) Monocytes (%) (Auto) 14.4% (4-12) Eosinophils (%) (Auto) 2.9% (0-5) Basophils (%) (Auto) 0.8% (0-3) Urine Color Yellow (YELLOW) Urine Appearance Clear (CLEAR,HAZY) Urine pH 6.5 (5.0-8.0) Urine Specific [place] 1.010 (1.003-1.035) Urine Protein Tracemg/dL (NEG,TRACE) Urine Glucose (UA) Negativemg/dL (NEGATIVE) Urine Ketones Negativemg/dL (NEGATIVE) Urine Occult Blood Negative (NEGATIVE) Urine Nitrite Negative (NEGATIVE) Urine Bilirubin Negative (NEGATIVE) Urine Urobilinogen Normalmg/dL (NORMAL) Urine Leukocyte Esterase Negative (NEGATIVE) Urine RBC 0-2/hpf (0-2) Urine WBC 0-5/hpf (0-5) Urine Epithelial Cells None/hpf (NONE-MOD) Urine Crystals None seen (NONE SEEN) Urine Bacteria None/hpf (NONE-FEW) Urine Hyaline Casts None/lpf (NONE) Urine Granular Casts None seen (NONE SEEN) Urine Waxy Casts None seen (NONE SEEN) Urine Red Blood Cell Casts None seen (NONE SEEN) Urine White Blood Cell Casts None seen (NONE SEEN) Urine Mucus None seen (None Seen) Urine Trichomonas None seen (NONE SEEN) Urine Yeast None (NONE SEEN) Urinalysis Comment None Urine Culture Reflexed Not indicated Urine Opiates Screen Positive Urine Methadone Screen Negative Urine Barbiturates Screen Negative Urine Amphetamines Screen Negative Urine Benzodiazepines Screen Negative Urine Cocaine Metabolite Screen Negative Urine Cannabinoids Screen Negative Magnesium Level 1.6mg/dL (1.6-2.6) Pro-B-Type Natriuretic Peptide 5425pg/mL (0-210) Test 11/14/16 02:14 11/14/16 09:32 11/15/16 02:27 Sodium Level 134mEq/L (134-144) Potassium Level 4.0mEq/L (3.5-5.2) Chloride Level 95mEq/L (97-108) Carbon Dioxide Level 24mmol/L (18-29) Blood Urea Nitrogen 20mg/dL (6-24) Creatinine 0.95mg/dL (0.76-1.27) Estimat Glomerular Filtration Rate 86mL/min (>59) Glucose Level 101mg/dL (60-99) Calcium Level 9.2mg/dL (8.5-10.1) Vancomycin Level Trough 21.7mcg/mL Procalcitonin 0.15ng/mL (0.00-0.08) Discharge Medications Discharge Medications Aspirin Chew (Aspirin Chew) 81 Mg Chew 81 MG PO DAILY Prescribed by: SHANTI LOPEZ MD Atorvastatin Calcium (Atorvastatin Calcium) 80 Mg Tablet 80 MG PO HS (Reported) Carvedilol (Carvedilol) 6.25 Mg Tablet 6.25 MG PO BIDWM Prescribed by: BERLIN DENISE MD Clopidogrel (Clopidogrel) 75 Mg Tablet 75 MG PO DAILY Prescribed by: CHAKA BLUNT DO Furosemide (Furosemide) 20 Mg Tab 20 MG PO BID Prescribed by: CHAKA BLUNT DO Levofloxacin (Levaquin) 750 Mg Tablet 750 MG PO DAILYAC Prescribed by: BERLIN DENISE MD Lisinopril (Lisinopril) 2.5 Mg Tablet 2.5 MG PO DAILY (Reported) Potassium Chloride (Potassium Chloride) 20 Meq Tab.er.prt 20 MEQ PO DAILY Prescribed by: MONA ZARATE MD Spironolactone (Aldactone) 25 Mg Tablet 25 MG PO DAILY Prescribed by: BERLIN DENISE MD Additional med instructions The dosages of 2 of your heart medicines have been increased. Carvedilol was 3.125 mg twice daily and has been increased to 6.25 mg twice daily. Spironolactone was 12.5 mg daily and has been increased to 25 mg daily. These medication increases should help reduce shortness of breath. They may lower your blood pressure. If you notice that you are dizzy when you stand up, then you should get your blood pressure checked. Contact one of your doctors for medication adjustment if it the systolic blood pressure is lower than 90 mmHg or if you have intolerable lightheadedness. You have 2 more doses of levofloxacin antibiotics to finish for your pneumonia. A prescription for levofloxacin has been sent to your [facility] pharmacy along with the other new prescriptions for cardiac medications. Followup Plan Discharge Diet: Other (strict low-sodium diet) Discharge Activity: Other (daily walking or mild aerobic exercise) Patient Instructions We strongly encourage you not to use any methamphetamine cocaine or other substances due to the severity of your heart disease. Check your weight every day and write it down. If she gain more than 4 pounds over 2 days, then you need an increase in your furosemide diuretic. Follow-up Provider: Carolina Chou MD Follow-up with PCP in: Other (at your previously scheduled appointment for follow-up in the next few weeks.) Time spent 35 min copies to: Carolina Chou MD, Jeffrey W MD Nov 16, 2016 10:59
== END 2016-11-16 11:45 | disposition home or self-care (01) | DRG 194 ==
LOC: SED 20:31 → PCC 23:12
PROVIDERS: ADMIT Hospitalist; ATTEND Hospitalist
DX: J18.9 Pneumonia, unspecified organism (principal); I42.9 Cardiomyopathy, unspecified; I50.22 Chronic systolic (congestive) heart failure; I10 Essential (primary) hypertension; F15.10 Other stimulant abuse, uncomplicated; B18.2 Chronic viral hepatitis C; Z66 Do not resuscitate; Z79.82 Long term (current) use of aspirin; Z87.891 Personal history of nicotine dependence; I25.2 Old myocardial infarction

== ENCOUNTER 2016-12-15 12:30 | Day surgery (SDC) | payer OTHER ==
--- NOTE | 2016-12-13 12:25 | PCM.ANEPRE ---
Anesthesia Pre-Op Review Reason for Review: chf, caridomyopathy, ef 20-25% Anesthesia Recommendations: Proceed with Procedure (Recent Echo on chart from . Consider A-line, Regional Technique. ) Esteban Michaels MD December 13, 2016 12:25
[2016-12-15] VITALS (8 sets, daily range): BP systolic 114–147; BP diastolic 65–96; PULSE 96–110; RESP 14–35; O2SAT 92–98
[~2016-12-15] VITALS: Ht 177.8 cm; Wt 78.4 kg
[~2016-12-15 12:30] MED LIST changes: -CARV3.122 PO; +CARV6.252 PO; +LEVO750T9 PO; +SPIR25TA PO; -SPIR25TA3 PO
[2016-12-15] MEDS ORDERED: fentaNYL-PF 50 mCg/mL 2 mL Inj ONE (12:31)
[2016-12-15] MEDS ORDERED: Ondansetron 2 mg/mL 2 mL Inj ONE (12:31)
[2016-12-15] MEDS ORDERED: Lactated Ringer's 1,000 ML IV ONE ×2 (12:37→13:00)
[2016-12-15] MEDS ORDERED: CeFAZolin Inj 2 gm / 50mL D5W IV ONE (12:54)
[2016-12-15] MEDS: fentaNYL-PF 50 mCg/mL 2 mL Inj ONE ×2 (13:00→13:15)
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
[2016-12-15] MEDS ORDERED: Bupivacaine-MPF 0.5% W/EPI 30 mL Inj INFILTRATE ONE (13:58)
[2016-12-15] MEDS ORDERED: Bupivacaine-MPF 0.5% 30 mL Inj INFILTRATE ONE (13:58)
[2016-12-15] MEDS ORDERED: HYDROmorphone 1 mg/mL Inj IVPUSH PRN (14:30)
[2016-12-15] MEDS ORDERED: fentaNYL-PF 50 mCg/mL 2 mL Inj IVPUSH PRN (14:30)
[2016-12-15] MEDS ORDERED: Lactated Ringer's 1,000 ML IV SCH (14:30)
[2016-12-15] MEDS ORDERED: Dexamethasone 4 mg/mL Inj IVPUSH PRN (14:30)
[2016-12-15] MEDS ORDERED: EPHEDrine Sulfate 50 mg/mL Inj IVPUSH PRN (14:30)
[2016-12-15] MEDS ORDERED: Phenylephrine 10,000 mCg/mL Inj IVPUSH PRN (14:30)
[2016-12-15] MEDS ORDERED: Ondansetron 2 mg/mL 2 mL Inj IVPUSH PRN (14:30)
--- NOTE | 2016-12-15 15:10 | PCM.ANEP1 ---
Post Anesthesia PACU Phase 1 Assessment Vital Signs Vital Signs Date Time Temp Pulse Resp B/P Pulse Ox O2 Delivery O2 Flow Rate FiO2 12/15/16 15:00 105 19 145/96 98 Simple Mask 10 12/15/16 14:58 36.3 105 19 129/93 98 Simple Mask 10 12/15/16 13:03 96 35 123/65 93 Room Air Anesthetic Administered: GA Level of Alertness: Sleeping, hard to arouse GARCIA's with Equal Strength: Yes Pain: No Nausea or Vomiting: No CV Function & Hydration Stable: Yes Airway Device: Oxygen Delivery: Simple Mask Lungs: Normal Air Movement PACU Phase 2 Assessment Complications: No Follow up Care: Yes Patient Instructions Provided: Yes Peace Nielsen DO December 15, 2016 15:10
[2016-12-15] MEDS ORDERED: HYDROcodone-APAP 5-325 mg Tablet PO PRN (15:20)
--- NOTE | 2016-12-15 15:45 | OP ---
[address] [id number] OPERATIVE REPORT PATIENT: TODD VASQUES : 1955 MR#: [id number] ADMIT: 12/15/2016 JOB ID: [id number] DATE OF SURGERY: 12/15/2016 ANESTHESIA: General. PREOPERATIVE DIAGNOSIS(ES): Incarcerated left inguinal hernia. POSTOPERATIVE DIAGNOSIS(ES): Incarcerated left inguinal hernia (indirect). OPERATION: Open repair of incarcerated inguinal hernia using mesh. SURGEON: Dr. Agustin Steven. PANTS BUSHELER: Levar Staples PA-C (the teaching assistant was required for the safe and timely completion of the case). COMPLICATIONS: None. ESTIMATED BLOOD LOSS: Less than 5 mL. CONDITION: Satisfactory. SPECIMEN: None. FINDINGS: There was a loop of small bowel incarcerated in the left inguinal hernia. This was ischemic but upon opening up the hernia sac and opening up the internal ring a little bit, this pinked right up and looked totally viable. A standard hernia repair with soft polypropylene mesh was then completed. INDICATIONS/SIGNIFICANT HISTORY: The patient is a 61-year-old man who has a symptomatic left inguinal hernia and elected to undergo operative repair tomorrow. However, he called my office today with acute onset left groin pain with inability to reduce the hernia. I had him come in and diagnosed him with incarceration and elected to proceeding urgently to the operating room. Of note, he is on Plavix and had only stopped the Plavix on Tuesday. OPERATIVE TECHNIQUE: The patient was taken to the operating room and placed in the supine position. Initially, the plan was to try and attempt this under local anesthetic given his poor cardiac function. The abdomen and groin were prepped and draped in a standard surgical fashion. A procedural pause was performed. Preoperative antibiotics were given. Local anesthetic was injected to perform an ilioinguinal block as well as inject the skin where I would make the incision. Incision was made and dissection carried down through skin and subcutaneous tissue. Eventually, I opened the aponeurosis of the external oblique. There was obviously bowel there. The patient was straining a lot and uncomfortable. It became apparent that I would not be able to reduce this with him under local anesthetic. Therefore, the anesthesiologist converted to general anesthetic and gave him muscle relaxant. Then opened up the hernia sac completely. The single loop of bowel which was ischemic, but after opening the sac and then opened up the internal ring a little bit pinked right up. I reduced this back into the abdomen after watching it for a few minutes. I then dissected around the cord. The floor appeared intact. The hernia sac was very thick. Because he was on Plavix, there was a little bit more oozing than usual. I elected not to try and resect this from the cord but simply just pursestring close the sac at the internal ring. I then trimmed a piece of soft polypropylene mesh to the appropriate size and shape, and secured this in place using interrupted 2-0 PDS sutures. The result was a nice reinforcement for and a recreation of the internal ring. The aponeurosis of the external oblique was then closed using a running 3-0 Vicryl. Lacey's was closed with interrupted 3-0 Vicryl. Skin was closed using 4-0 Monocryl. The entire procedure was well tolerated without complication.
[2016-12-16] MEDS ORDERED: Lactated Ringer's 1,000 ML IV SCH (05:00)
[2016-12-16] MEDS ORDERED: CeFAZolin Inj 2 GM in IV Premix 1 EACH IV SCH (06:00)
== END 2016-12-15 23:59 | disposition home or self-care (01) ==
LOC: SAS 12:30
PROVIDERS: ATTEND General Practice
DX: K40.30 Unilateral inguinal hernia, with obstruction, without gangrene, not specified as recurrent (principal); B19.20 Unspecified viral hepatitis C without hepatic coma; M54.30 Sciatica, unspecified side; I50.22 Chronic systolic (congestive) heart failure; I42.9 Cardiomyopathy, unspecified; F32.9 Major depressive disorder, single episode, unspecified; F15.20 Other stimulant dependence, uncomplicated; M54.9 Dorsalgia, unspecified; Z87.891 Personal history of nicotine dependence; Z79.82 Long term (current) use of aspirin
CPT/HCPCS: 49507; C1781; J0690; J2250; J2405; J3010; J7120

== ENCOUNTER 2016-12-29 11:04 | Day surgery (SDC) | payer OTHER ==
[~2016-12-29] VITALS: Ht 177.8 cm; Wt 74.8 kg
[2016-12-29] MEDS ORDERED: fentaNYL-PF 50 mCg/mL 2 mL Inj ONE (11:05)
[2016-12-29 11:32] VITALS: BP 118/81; PULSE 82; O2SAT 93
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
[2016-12-29] MEDS ORDERED: fentaNYL-PF 50 mCg/mL 2 mL Inj IVPUSH PRN (12:00)
[2016-12-29] MEDS ORDERED: Sodium Chloride LOK Flush 10 mL Syringe IVFLUSH SCH (12:00)
--- NOTE | 2016-12-29 12:45 | PCM.ANEP1 ---
Post Anesthesia PACU Phase 1 Assessment Vital Signs 94%, 85, 104/78, 16 Vital Signs Date Time Temp Pulse Resp B/P Pulse Ox O2 Delivery O2 Flow Rate FiO2 12/29/16 11:32 36.5 82 118/81 93 Room Air Anesthetic Administered: GA Level of Alertness: Awake, talking GARCIA's with Equal Strength: Yes Pain: No Nausea or Vomiting: No CV Function & Hydration Stable: Yes Airway Device: none Oxygen Delivery: Room Air Lungs: Clear to Auscultation Dermatome Level: Full Sensation Summary Uneventful sedation PACU Phase 2 Assessment Complications: No Follow up Care: No Patient Instructions Provided: N/A Luis Fernando Arnold MD Dec 29, 2016 12:45
[2016-12-29] MEDS ORDERED: Lactated Ringer's 1,000 ML IV ONE (12:47)
[2016-12-29] MEDS ORDERED: Lactated Ringer's 1,000 ML IV SCH (12:47)
[2016-12-29] MEDS ORDERED: Ondansetron 2 mg/mL 2 mL Inj IVPUSH PRN (12:50)
[2016-12-29] MEDS ORDERED: MetoCLOpramide 5 mg/mL 2 mL Inj IVPUSH PRN (12:50)
[2016-12-29 13:10] VITALS: BP 115/87; PULSE 72; RESP 16; O2SAT 97
[2016-12-29 13:14] VITALS: BP 132/81; PULSE 84; RESP 16; O2SAT 93
--- NOTE | 2016-12-29 23:11 | ENDO ---
[address] [address] ENDOSCOPY PROCEDURE PATIENT: TODD VASQUES : 1955 MR#: [id number] ADMIT: 12/29/2016 JOB ID: [id number] DATE OF PROCEDURE: 12/29/2016 PRIMARY CARE PHYSICIAN: Val Heck DO. PROCEDURE: Colonoscopy. INDICATION: This is a 61-year-old man undergoing screening colonoscopy. EQUIPMENT: [employer]. SEDATION: Sedation was provided by the anesthesiologist. PREPARATION QUALITY: Was good. COMPLICATIONS: None identified. PROCEDURE INFORMATION: The patient was brought into the endoscopy suite and placed in left lateral decubitus position. Sedation was achieved per the anesthesiologist. Digital rectal exam was performed. The patient had large prolapsing hemorrhoids. The scope was then introduced through the anus and advanced under direct visualization through to the cecum. The appendiceal orifice was identified and photographed. I had trouble identifying the ileocecal valve. The colon was very redundant and floppy. Retroflexed views were obtained in the rectum. The scope was then slowly withdrawn, examining the mucosa for any polyps or defects. The quality of the preparation was good. I reduced his hemorrhoids at the completion of the case. FINDINGS: Normal colonoscopy. RECOMMENDATION: Repeat screening colonoscopy in 10 years. SUYAPA
== END 2016-12-29 23:59 | disposition home or self-care (01) ==
LOC: END 11:04
PROVIDERS: ATTEND General Practice
DX: Z12.11 Encounter for screening for malignant neoplasm of colon (principal); I50.22 Chronic systolic (congestive) heart failure; B19.20 Unspecified viral hepatitis C without hepatic coma; M54.30 Sciatica, unspecified side; F32.9 Major depressive disorder, single episode, unspecified; M54.9 Dorsalgia, unspecified; Z87.891 Personal history of nicotine dependence; F15.20 Other stimulant dependence, uncomplicated; Z79.82 Long term (current) use of aspirin
CPT/HCPCS: G0121; J7120

== ENCOUNTER 2017-03-21 01:29 | Observation (INO) | payer OTHER ==
[2017-03-21] VITALS (13 sets, daily range): BP systolic 95–136; BP diastolic 65–102; PULSE 80–108; RESP 13–28; O2SAT 94–99
[~2017-03-21] VITALS: Ht 180.3 cm; Wt 76.5 kg
[~2017-03-21 01:29] MED LIST changes: -CLOP75TA28 PO; -LEVO750T9 PO
--- NOTE | 2017-03-21 01:35 | ED.REPORT ---
HPI-Chest Pain 40 and Over Date of Service Mar 21, 2017 ED Provider: Patrice Bronson MD Pt is a 61 year old male with a history of HTN, methamphetamine abuse, COPD, non -ischemic cardiomyopathy, and hepatitis C who presents to the ED complaining of SOB onset yesterday. He c/o associated tight chest pain, and malaise onset 1 week ago. The pt reports that he does not drink alcohol and that he quit using methamphetamine 1 year ago. He denies any other drug use. Nursing Notes Stated Complaint: CHEST PAIN Chief Complaint: Chest Pain Nursing Notes Reviewed: Yes Allergies: Coded Allergies: No Known Allergies (Verified Allergy, Unknown, 03/21/17) Scheduled Aspirin Chew (Aspirin Chew) 81 Mg Chew 81 MG PO DAILY Atorvastatin Calcium (Atorvastatin Calcium) 80 Mg Tablet 80 MG PO HS Carvedilol (Carvedilol) 6.25 Mg Tablet 6.25 MG PO BIDWM Furosemide (Furosemide) 20 Mg Tab 20 MG PO BID Lisinopril (Lisinopril) 2.5 Mg Tablet 2.5 MG PO DAILY Potassium Chloride (Potassium Chloride) 20 Meq Tab.er.prt 20 MEQ PO DAILY Spironolactone (Aldactone) 25 Mg Tablet 25 MG PO DAILY General Time Seen by MD: 01:35 Chief Complaint Chest pain Hx Obtained From: Patient Arrived By: Walk-in Sudden in Onset?: No Onset Occurred: Yesterday Symptom Duration: Since onset Location: : Chest left: Chest right Quality: Painful Radiation: : Does not radiate Migration/Movement: Reports: None Severity: Current: Moderate Severity: Maximum: Moderate Recent Healthcare: No recent doctor visit, No recent hospitalization Similar Sx Previous: Yes Past Medical History Past Medical History Non-ischemic cardiomyopathy Hepatitis C Methamphetamine abuse Reports: COPD, Congestive heart failure, Hypertension Reports: Urinary tract infection Past Surgical History 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 Back Hernia repair Smoking History Former Smoker Social History Alcohol Use: Denies alcohol use Drug Use: Denies drug use Ambulatory Status Independent Review of Systems Constitutional: Reports: Malaise, Denies: Fever Respiratory: Reports: Shortness of breath Cardiovascular: Reports: Chest pain Complete sys rev & neg: except as marked. Physical Exam Initial Vital Signs Vital Signs (First) Date Time Temp Pulse Resp B/P Pulse Ox O2 Delivery O2 Flow Rate FiO2 03/21/17 01:32 37.2 108 28 136/102 97 Room Air Initial VS: Reviewed Head / Eyes: Atraumatic, Normocephalic Neck: Supple, Full range of motion Skin: Warm, Dry, No cyanosis Neurologic: Alert, Oriented, Nonfocal Psychiatric: Mood/affect normal, Behavior normal General/Constitutional: Awake, Alert He does not appear to be grossly intoxicated. RESPIRATORY: Tachypneic. Wheezes prologned with expiration. Cardiovascular: Heart rate NL, Regular rhythm, Heart sounds NL Abdomen: Atraumatic, Soft Epigastric is tender to palpation Upper Extremity / MS: Full range of motion, Neurologic intact, Vascular intact No signs of recent IV drug use Interpretation & Diagnostics Lab Results Interpretation Result Diagram: 03/21/17 0335 03/21/17 0335 Test 03/21/17 01:40 03/21/17 02:35 Magnesium Level 1.7mg/dL (1.6-2.6) Hold Urine Received (Received) ECG Interpretation ECG Interpretation: Sinus tachycardia with a rate of 106 Probable left atrial enlargement Incomplete LBBB LVH with secondary repolarization abnormality Anterior q waves, possibly due to LVH Time: 01:42 Interpreted by: ED physician X-Ray Chest Interpretation Chest Xray Interpretation: Fluid infiltrate, CHF, cardiomegaly View: Portable, 1 view Interpretation / Wet Read by: Wet read ED physician Re-Eval/Medical Decision Med Decision/Clinical Course 7-year-old presents with chest pain. He states he has been absent for methamphetamine for year, but is positive again tonight. Troponin is elevated despite relatively benign-appearing EKG with right bundle branch block. Admitted for completion of rule in/rule out protocol, already positive by enzymes. Source of Hx: Old records Time of Eval: 02:20 Re-Evaluation/Progress Note: Pt rechecked. Informed pt of plan for admission. Pt understands and agrees with plan for admission. All questions addressed. Consultation : Referral / Consult Name: Joe Wilkins MD Call Returned at: 02:30 Pushcart Peddler: Will see patient, Agrees with eval, Agrees with plan, Accepts admit Counseled Regarding: Diagnosis, Lab results, Need for admission Discharge & Departure Primary Impression: Chest pain Chest pain type: unspecified Qualified Code: R07.9 - Chest pain, unspecified Additional Impressions: Elevated troponin Polysubstance abuse Methamphetamine abuse Disposition: ADMITTED TO HOSPITAL Discharge Condition All VS Reviewed: Yes Condition: Stable Referrals: CHAKA BLUNT DO (PCP) Joseibelia Attestation Portions of this note were transcribed by Mariella Roland. I, Dr. Bronson personally performed the history, physical exam and medical decision-making; I reviewed and confirmed the accuracy of the information in the transcribed note. Signed by: Jong Alvarado, 03/20/17. copies to: CHAKA BLUNT Christopher W MD Mar 21, 2017 01:35 Mariella Elizabeth Mar 21, 2017 02:47 Creatinine 0.79mg/dL (0.76-1.27) Estimat Glomerular Filtration Rate 106mL/min (>59) Glucose Level 145mg/dL (60-99) Calcium Level 8.2mg/dL (8.5-10.1) Magnesium Level 1.7mg/dL (1.6-2.6) Total Bilirubin 0.7mg/dL (0.0-1.2) Aspartate Amino Transf (AST/SGOT) 54U/L (0-50) Alanine Aminotransferase (ALT/SGPT) 50U/L (0-44) Alkaline Phosphatase 118U/L (25-160) Troponin T 0.074ug/L (0.0-0.011) Total Protein 6.9g/dL (6.4-8.4) Albumin 3.1g/dL (3.4-5.0) ECG Interpretation ECG Interpretation: Sinus tachycardia with a rate of 106 Probable left atrial enlargement Incomplete LBBB LVH with secondary repolarization abnormality Anterior q waves, possibly due to LVH Time: 01:42 Interpreted by: ED physician X-Ray Chest Interpretation Chest Xray Interpretation: Fluid infiltrate, CHF, cardiomegaly View: Portable, 1 view Interpretation / Wet Read by: Wet read ED physician Re-Eval/Medical Decision Source of Hx: Old records Time of Eval: 02:20 Re-Evaluation/Progress Note: Pt rechecked. Informed pt of plan for admission. Pt understands and agrees with plan for admission. All questions addressed. Consultation : Referral / Consult Name: Joe Wilkins MD Call Returned at: 02:30 Pushcart Peddler: Will see patient, Agrees with eval, Agrees with plan, Accepts admit Counseled Regarding: Diagnosis, Lab results, Need for admission Discharge & Departure Primary Impression: Chest pain Chest pain type: unspecified Qualified Code: R07.9 - Chest pain, unspecified Additional Impression: Elevated troponin Disposition: ADMITTED TO HOSPITAL Discharge Condition All VS Reviewed: Yes Condition: Stable Referrals: CHAKA BLUNT DO (PCP) Jong Attestation Portions of this note were transcribed by Mariella Roland. I, Dr. Bronson personally performed the history, physical exam and medical decision-making; I reviewed and confirmed the accuracy of the information in the transcribed note. Signed by: Jong Alvarado, 03/20/17. copies to: CHAKA BLUNT Christopher W MD Mar 21, 2017 01:35 Mariella Elizabeth Mar 21, 2017 02:47
[2017-03-21] MEDS ORDERED: Albuterol 2.5 mg/3 mL Inhalation Solution NEB ONE ×2 (01:50→01:52)
[2017-03-21] MEDS ORDERED: Albuterol-Ipratropium 3 mL Inhalation Solution NEB ONE (01:50)
[2017-03-21] MEDS ORDERED: Albuterol-Ipratropium 3 mL Inhalation Solution ONE (01:51)
[2017-03-21 02:08] LABS: EOSINOPHILS % (AUTO) 3.7 % (0-5); Mean Corpuscular Hemoglobin 33.6 pg (27.0-35.0); Mean Corpuscular Volume 97.2 fL (81-100); NEUTROPHILS % (AUTO) 55.2 % (40-74); Platelet Count 349 bil/L (150-400)
[2017-03-21 02:27] LABS: Magnesium 1.7 mg/dL (1.6-2.6)
[2017-03-21 02:43] LABS: TROPONIN T 0.074 ug/L (0.0-0.011)
[2017-03-21] MEDS ORDERED: Ondansetron 2 mg/mL 2 mL Inj IVPUSH PRN (02:50)
[2017-03-21] MEDS ORDERED: Polyethylene Glycol (PEG) 17 Gm Powder PO PRN (02:50)
[2017-03-21] MEDS ORDERED: Alum-Mag Hydrox-Simeth 30 mL Suspension PO PRN (02:50)
--- NOTE | 2017-03-21 03:05 | PCM.HPMED ---
Subjective Date of Service Mar 21, 2017 Primary Provider: Admitting Physician: Joe Wilkins MD Primary Care Physician: Chaka Blunt DO Attending Physician: Joe Wilkins MD Admit Status: From the Emergency Department Chief Complaint: Chest pain, shortness of breath History of Present Illness: Amando Servin is a 61-year-old male with a past medical history significant for chronic systolic heart failure, hepatitis C, and methamphetamine abuse presented to the ED with complaints of shortness of breath and chest pain that started last night and woke him up, but has persisted throughout the day. He reports that the pain is worse with inspiration, but does not radiate. He does sleep upright on multiple pillows, but has no lower extremity edema and says that he has been taking his medications as prescribed. He reports increased fatigue and chills along with some epigastric pain, but denies palpitations, productive cough, fever, nausea or vomiting, recent illness. After talking with the patient, he adamantly denies methamphetamine use; however his UA was positive for amphetamines which he attributes to being in the same room as his roommate who smokes "a lot of meth". Review of Systems: Comprehensive review of systems was conducted with the patient and found to be negative except as noted above in HPI. Allergies Coded Allergies: No Known Allergies (Verified Allergy, Unknown, 03/21/17) Home Medications Aspirin Chew (Aspirin Chew) 81 Mg Chew 81 MG PO DAILY Atorvastatin Calcium (Atorvastatin Calcium) 80 Mg Tablet 80 MG PO HS (Reported) Carvedilol (Carvedilol) 3.125 Mg Tablet 3.125 MG PO BIDWM Furosemide (Furosemide) 20 Mg Tab 20 MG PO BID Lisinopril (Lisinopril) 2.5 Mg Tablet 2.5 MG PO DAILY (Reported) Potassium Chloride (Potassium Chloride) 20 Meq Tab.er.prt 20 MEQ PO DAILY Spironolactone (Spironolactone) 25 Mg Tablet 12.5 MG PO DAILY (Reported) Plavix 75mg PO DAILY PMH Cardiomyopathy, Non ischemic Hepatitis C Methamphetamine abuse Chronic systolic CHF Surgical History Splenectomy Back surgery x2 Family History Grandfather of [place] at age of 80 Social History Hx Alcohol Use: Yes (once month) Hx Substance Use: Yes (meth use- pt denies any recent use) Hx Tobacco Use: Yes Smoking Status: Former Smoker Living Arrangement: with Friends/Roommate Exam Vital Signs Vital Sign - Last Date Time Temp Pulse Resp B/P Pulse Ox O2 Delivery O2 Flow Rate FiO2 03/21/17 01:59 105 28 95 Room Air 03/21/17 01:32 37.2 136/102 Exam General: Elderly male that appears older than stated age, disheveled but in no acute distress and interacting appropriately. He is difficult to understand and mumbles at times. HEENT: Normocephalic, atraumatic. External ears without defect. Pupils equal, round, and reactive to light and accommodation. Oropharynx free of erythema and cobble stoning with moist mucosa. Poor dentition. Neck: Supple with full range of motion. No jugular venous distension, lymphadenopathy or thyromegaly. Cardiovascular: Tachycardic with normal rhythm with no murmurs, rubs, or gallops appreciated Pulmonary: Diffuse expiratory wheezing bilaterally without overt crackles/ rhonchi. Normal respiratory effort with no use of accessory muscles. Abdomen: Bowel tones present. Soft, nondistended. Some tenderness to palpation in the epigastric region, no guarding or rebound. Extremities: No clubbing, cyanosis, edema present. Dirt present under all of his fingernails. Skin: Normal temperature, turgor, and texture; no rash, ulcers, or subcutaneous nodules appreciated. Neurological: Cranial nerves grossly intact. Normal muscle strength, tone, and bulk, no focal deficits. Psychiatric: Normal mood and affect. Alert and oriented to person, place, and time. Lab and Diagnostics Result Diagram: 03/21/17 0140 03/21/17 0140 X-Rays, CTs and MRIs Chest x-ray 03/21/2017 Chest Xray Interpretation: Fluid infiltrate, likely due to CHF, cardiomegaly Pending official read 12-lead ECG ECG Interpretation: Sinus tachycardia with a rate of 106 Probable left atrial enlargement Incomplete LBBB LVH with secondary repolarization abnormality Anterior q waves, possibly due to LVH Time: 01:42 Interpreted by: ED physician Assessment & Plan Amando Servin is a 61-year-old male with a past medical history significant for chronic systolic heart failure, hepatitis C, and methamphetamine abuse presented to the ED with complaints of shortness of breath and chest pain that started last night and woke him up, but has persisted throughout the day. Shortness of breath, present on admission. Acute. Ongoing. - Patient has CHF history below, has also had pneumonia as well and has slight WBC elevation - Cardiac troponin slightly elevated, as below - CXR shows no prominent infiltrate or consolidations with some CHF changes - Patient improved with DuoNeb treatment in ED - Continue DuoNeb treatment q4h while awake - Single dose of IV Lasix 20mg given; consider continuing if his breathing improves - Repeat CXR for morning Elevated troponin, present on admission. Acute. Ongoing. - Patient has extensive cardiac history with EF 15-20%, unlikely ischemia due to 07/2016 stress test and imaging showing no infarcts/ischemia; likely demand etiology - His previous troponins were 0.04-0.05, so it is somewhat elevated at 0.074 - EKG without signs of acute ST changes - Trend troponin x2 - Repeat EKG in morning - Monitor on telemetry - Consider cardiology consult if his troponin continues to climb for possible NSTEMI work up - Continue Aspirin 81mg - Med list has Plavix, however that is not listed in his most recent med list; day team to verify and start if necessary Chronic Systolic heart failure, present on admission. Ongoing. - Patient has EF 15-20% but has never undergone catheterization - Recent stress test and perfusion imaging as above 07/2016 - CXR does show some fluid, however on exam he is not overtly fluid overloaded - Patient given 1 dose of IV Lasix 20mg; consider continuing if his breathing and CXR worsen - Continue his CHF regimen: Carvedilol 3.125 twice daily Furosemide 20 mg twice daily Lisinopril 2.5 mg daily Spironolactone for 12.5 mg daily Hyperlipidemia, present on admission. Chronic. - Continue Atorvastatin 80mg qHS Methamphetamine abuse, present on admission. Chronic. - Patient reports that he used to smoke meth but has quit "many years ago"; however, he does have multiple recent UTox positive for meth, including in the ED tonight PRN Medications - Acetaminophen as needed for mild pain/fever/headache - Bowel regimen as needed - Antiemetic as needed Patient status: Patient is admitted under observation status with expected length of stay less than 2 midnights due to severity of presenting symptoms, risk of adverse event, and complexity of treatment plan. VTE Prophylaxis: Sub-Q Heparin (Unfractionated) VTE Mechanical Devices: Intermittant Pneumatic CD Resuscitation Status: CPR: Attempt Resuscitation Attending Statement The patient was seen and examined together with Dr. Paez on 03/21 and I agree with the history, exam and plan as outlined in the note above. copies to: CHAKA BLUNT Jeffery S DO Mar 21, 2017 03:05 Joe Wilkins MD Mar 21, 2017 03:42
[2017-03-21] MEDS ORDERED: Furosemide 10 mg/mL 2 mL Inj IVPUSH ONE (03:35)
[2017-03-21 04:02] LABS: BASOPHILS % (AUTO) 0.8 % (0-3); EOSINOPHILS % (AUTO) 3.6 % (0-5); MONOCYTES % (AUTO) 12.6 % (4-12); Mean Corpuscular Volume 97.3 fL (81-100); NEUTROPHILS % (AUTO) 50.8 % (40-74); Platelet Count 309 bil/L (150-400)
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
[2017-03-21] MEDS ORDERED: Heparin 5,000 Unit/mL Inj SUBQ SCH (08:30)
--- NOTE | 2017-03-21 08:33 | DRSVH ---
PROCEDURE: X-RAY CHEST ONE VIEW, PORTABLE [id number] hrs. INDICATIONS: cp TECHNIQUE: One view of the chest was acquired. COMPARISON: 01/27/2017 FINDINGS: Surgical changes and devices: Partially visualized Randall rods lumbar spine. Lungs and pleura: Small left pleural effusions, no pneumothorax. Consolidation at the left lung base is increased compared to prior exam. There is also mild increase in interstitial markings bilaterally suggesting pulmonary edema. Mediastinum: Mediastinal contours appear normal. Heart size is mildly enlarged. Bones and chest wall: No suspicious bony lesions. Overlying soft tissues appear unremarkable. IMPRESSION: 1. Mild cardiomegaly and pulmonary edema suggesting congestive heart failure. 2. Increased left lower lobe consolidation from prior study which may represent recurrent pneumonia o r aspiration. Small left pleural effusion suspected. Dictated by: Raudel Madera M.D. on 03/21/2017 at 8:27 Approved by: Raudel Madera M.D. on 03/21/2017 at 8:31
[2017-03-21] MEDS: Potassium Chloride 20 mEq SR Tablet PO SCH (09:13)
[2017-03-21] MEDS ORDERED: Heparin 5,000 Unit/mL Inj IVPUSH PRN (09:40)
[2017-03-21] MEDS ORDERED: Heparin 25K Unit/500mL 0.45 NS 25,000 UNIT in IV Premix 1 EACH IV SCH (09:40)
--- NOTE | 2017-03-21 12:08 | DRSVH ---
PROCEDURE: X-RAY CHEST ONE VIEW ([id number]) INDICATIONS: SOB TECHNIQUE: One view of the chest was acquired. COMPARISON: [facility], CR, CHEST 1VW (PORTABLE), 07/29/2014, 11:08. [facility], CR, XR CHEST 1VW (PORTABLE), 08/08/2016, 2:30. [facility], CR, XR CHEST 2VW, 11/15/19 17, 8:28. [facility], CR, XR CHEST 2VW, 01/27/2017, 15:11. [facility], CR, XR CHEST 1VW (PORTABLE), 03/21/2017, 1:47. FINDINGS: Surgical changes and devices: None. Lungs and pleura: Diffuse, bilateral interstitial opacities are present with mid and basilar predomin ance suggestive of edema. There is a small left pleural effusion and left basilar consolidation. No pneumothorax. Mediastinum: Mediastinal contours appear normal. Heart size is normal. Bones and chest wall: No suspicious bony lesions. Overlying soft tissues appear unremarkable. IMPRESSION: Pulmonary edema and/or pneumonia involving the left lung base or small left pleural effus ion persists. Continued radiographic surveillance to resolution is recommended. Dictated by: Seng Anaya RRA Interpreted: Winston Leger MD on 03/21/2017 at 8:19 Approved by: Winston Leger M.D. on 03/21/2017 at 12:06
[2017-03-21] MEDS: Furosemide 10 mg/mL 4 mL Inj IVPUSH SCH ×2 (12:35→18:10)
--- NOTE | 2017-03-21 13:21 | PCM.PNMED ---
Subjective Date of Service Mar 21, 2017 Subjective Subjective: Patient complains of feeling very poorly this morning. States that pain is increased with breathing, setting up helps with this pain. Pain is located at the mid axillary line left chest. Events Overnight: No acute events overnight. ROS: Shortness of breath, chest pain. Denies fever/chills, nausea/vomiting, headache, weakness, abdominal pain, increased swelling in hands or feet. Exam Vital Signs Vital Sign - Last Date Time Temp Pulse Resp B/P Pulse Ox O2 Delivery O2 Flow Rate FiO2 03/21/17 12:03 36.4 88 23 106/81 98 Room Air 03/21/17 09:11 2.00 Intake and Output 03/20/17 03/20/17 03/21/17 Cumulative From/Thru 15:00 23:00 07:00 03/21/17 01:32 - 03/21/17 06:26 Intake Total 0 ml 0 ml Output Total 350 ml 350 ml Balance -350 ml -350 ml Intake Oral 0 ml 0 ml IV Total 0 ml 0 ml Output Urine Total 350 ml 350 ml # Bowel Movements 0 0 Exam General: Mild distress, diaphoretic, well-developed, well-nourished Head: Normocephalic, atraumatic. External ears without defect. Eyes: Pupils equal, round, and reactive to light and accommodation. Anicteric sclerae, moist conjunctivae. Neck: Normal range of motion, no lymphadenopathy noted Cardiovascular: Regular rate and rhythm with no murmurs, rubs, or gallops appreciated Pulmonary: Rales and rhonchi of the lower lung millan bilaterally, no wheezes. Normal respiratory effort with no use of accessory muscles. Abdomen: Bowel tones present. Soft, nontender, nondistended. Extremities: No clubbing, cyanosis, edema Skin: Normal temperature, turgor, and texture; no rash, ulcers, or subcutaneous nodules appreciated. Neurological: Cranial nerves grossly intact. Reflexes, coordination, and sensory function within normal limits. Normal muscle strength, tone, and bulk. Psychiatric: Normal mood and affect. Alert and oriented to person, place, and time IVs and Medications Medications Reviewed: Medications were reviewed in detail Lab and Diagnostics Result Diagram: 03/21/17 0335 03/21/17 0335 X-Rays, CTs and MRIs X-RAY CHEST ONE VIEW, PORTABLE IMPRESSION: 1. Mild cardiomegaly and pulmonary edema suggesting congestive heart failure. 2. Increased left lower lobe consolidation from prior study which may represent recurrent pneumonia or aspiration. Small left pleural effusion suspected. Dictated by: Raudel Madera M.D. on 03/21/2017 at 8:27 Approved by: Raudel Madera M.D. on 03/21/2017 at 8:31 X-RAY CHEST ONE VIEW IMPRESSION: Pulmonary edema and/or pneumonia involving the left lung base or small left pleural effusion persists. Continued radiographic surveillance to resolution is recommended. Dictated by: Seng Anaya RRA Interpreted: Winston Leger MD on 03/21/2017 at 8:19 Approved by: Winston Leger M.D. on 03/21/2017 at 12:06 12-lead ECG ECG Interpretation: Sinus tachycardia with a rate of 106 Probable left atrial enlargement Incomplete LBBB LVH with secondary repolarization abnormality Anterior q waves, possibly due to LVH Time: 01:42 Interpreted by: ED physician Cardiac Echo Impressions Echocardiogram Interpretation Summary (08/02/2016) The left ventricle is markedly dilated. The ejection fraction is estimated to be 20-25%. There has been no significant change in LV EF since the previous study. There is severe global hypokinesis of the left ventricle. Spontaneous contrast is noted consistent with low flow state. Assessment of diastolic parameters indicates a restrictive filling pattern of the left ventricle consistent with significantly elevated filling pressures. The right ventricle is normal size. Right ventricular systolic function is mildly reduced. There is moderate mitral regurgitation. Compared to the prior echo study, there has been an increase in the severity of mitral regurgitation. There is mild tricuspid regurgitation. Compared to the prior echo exam, there has been no change in TR severity. The right ventricular systolic pressure is estimated at 34 mmHg assuming a right atrial pressure of 3 mm Hg. Reading Physician:PM Echocardiogram Interpretation Summary (03/21/2017) The left ventricle is severely dilated. The ejection fraction is estimated to be 10-15%. Compared to the prior exam, the left ventricular function is mildly reduced. The right ventricle is mild to moderately dilated. Right ventricular systolic function is mildly reduced. There is moderate to severe mitral regurgitation. Compared to the prior echo study, there has been an increase in the severity of mitral regurgitation. There is moderate tricuspid regurgitation. Compared to the prior echo exam, there has been an increase in TR severity. The right ventricular systolic pressure is estimated at 55 mmHg assuming a right atrial pressure of 15 mm Hg. Compared to the prior echo exam, there has been an increase in the severity of pulmonary hypertension. There is a moderate left-sided pleural effusion (New). Reading Physician:PM . Additional Diagnostics 1 DAY PHARMACOLOGICAL STRESS TEST (08/11/2016) IMPRESSION: 1. No scintigraphic evidence of myocardial ischemia. 2. ST depression is seen with exercise in leads V2-V6 as described, without scintigraphic correlate. 3. Diffuse left ventricular hypokinesis, with low left ventricular ejection fraction of 14%. 4. Partial left bundle branch block. Multifocal PVCs and couplets are present, which worsen with exercise. 5. Findings discussed with Dr. Heck on 08.11.16 at 1315 hrs. Dictated by: Raheem Xie M.D. on 08/11/2016 at 13:19 Approved by: Raheem Xie M.D. on 08/11/2016 at 13:19 . Assessment & Plan Amando Servin is a 61-year-old male with a past medical history significant for chronic systolic heart failure, hepatitis C, and methamphetamine abuse presented to the ED with complaints of shortness of breath and chest pain that started last night and woke him up, but has persisted throughout the day. Acute on Chronic Systolic heart failure, present on admission. Ongoing. - Last echo 08/02/16 EF 20-25% as above, these changes been present since 2015, patient has never undergone catheterization "per his choice" according to cardiology note on 01/02/16 - Patient failed stress test on 07/2016 results as above - Repeat Echo 03/21 shows EF 10-15% Results as above - CXR shows fluid bilaterally, obvious JVD on exam -Serial troponins elevated, continue to trend - IV Lasix 40 mg twice a day - Continue his CHF regimen: Carvedilol 6.25 twice daily Lisinopril 2.5 mg daily Spironolactone for 12.5 mg daily - Cardiology consulted. Patient states that he is currently amenable to catheterization. Elevated troponin of uncertain significance, present on admission. Acute. Ongoing. - Patient has extensive cardiac history with EF 20-25%, likely demand etiology combined with chronic ischemia - Repeat Echo 03/21 shows EF 10-15% Results as above - His previous troponins were 0.04-0.05, this admit elevated at 0.064- 0.108 - EKG without signs of acute ST changes - Continue to trend troponins - Monitor on telemetry - Continue Aspirin 81mg - Cardiology consulted. Patient states that he is currently amenable to catheterization. Acute hypoxemic respiratory distress, present on admission. Acute. Systolic CHF likely due to CHF exacerbation since minimal increases in WBC counts, no fevers, obvious JVD. - Patient improved with DuoNeb treatment in ED, no history of asthma or COPD. Continue duoneb Q6 PRN, - CXR showing changes likely due to CHF - IV Lasix 40 mg twice a day Hyperlipidemia, present on admission. Chronic. - Continue Atorvastatin 80mg qHS Methamphetamine abuse, present on admission. Chronic. - Patient reports that he used to smoke meth but has quit "many years ago"; however, he does have multiple recent UTox positive for meth, including in the ED PRN Medications - Acetaminophen as needed for mild pain/fever/headache - Bowel regimen as needed - Antiemetic as needed Disposition: Patient is likely to require 2-3 more nights of inpatient stay for medical management before discharge home VTE Prophylaxis: Sub-Q Heparin (Unfractionated) VTE Mechanical Devices: Intermittant Pneumatic CD Resuscitation Status: CPR: Attempt Resuscitation Attending Statement The patient was seen and examined together with Dr. Eduardo on 03/21/2017 and I agree with the history, exam and plan as outlined in the note above. . Alex Eduardo DO Mar 21, 2017 13:20 Skip Nichols MD Mar 24, 2017 07:52
[2017-03-21] MEDS ORDERED: Magnesium Sulf 4 Gm/100 mL H2O 4 GM in IV Premix 1 EACH IV ONE (15:05)
[2017-03-21] MEDS: Albuterol-Ipratropium 3 mL Inhalation Solution NEB PRN ×2 (16:20→23:14)
--- NOTE | 2017-03-21 16:40 | NUR ---
Social Work: Initial Assessment/Multidisciplinary Rounds/CD assessment D: Per EMR review, pt is a 61 year old male admitted for chest pain/elevated trop. PCP is Byron Heck DO at the [facility]. NOK is Bessie Servin, , . Advanced directives not completed- information provided. No RA score entered at this time. Pt discussed in Multidisciplinary rounds. Capacity for self care discussed; no concerns or needs for discharge identified at this time. CM order placed to complete CD assessment; pt's UDS positive for METH and AMP. CLOTH DYEING RANGE TENDER acknowledges order. CLOTH DYEING RANGE TENDER met with patient at bedside. hop farm worker role explained, contact information and discharge planning checklist provided. See initial assessment. Pt lives in [place] with his in a two story home with 4-5 steps to enter. Pt is I at baseline with all ADLs, continues to drive and uses a cane for mobility. Pt states that he has never had HH or skilled rehab. Pt states that he anticipates discharge home when medically stable and states that either his or family will transport. CLOTH DYEING RANGE TENDER inquired about pt's substance use. Pt admits to smoking meth on 03/17/17 but states that it's not problematic for him. He states that he is not interested in treatment, has never engaged in treatment in the past and does not want resources. The patient states that "I was just around people who were doing it." He states that in the future "I just need to leave or just not be around them." Pt declined to speak further about his substance use as he does not consider it to be a problem. CLOTH DYEING RANGE TENDER left the patient resources at bedside which he accepted. A: Pt who is I at baseline with ADLs P: Anticipate pt to discharge home when medically stable; CLOTH DYEING RANGE TENDER to continue to follow to assess for unmet d/c needs. YUAN Cameron Addendum: 03/21/17 at 1648 by FELECIA CARR SS Amended: Links added.
--- NOTE | 2017-03-21 17:03 | DRSVH ---
[facility] [address] [place] [address] Echocardiogram Report Name: TODD VASQUES JStudy Date: 03/21/2017 Height: 71 in Hospital Exam Location: [facility] Weight: 173 lb Gender: Male BSA: 2.0 m2 : 1955 Age: 61 yrs BP: 113/86 mmHg Reason For Study: Congestive Heart Failure Ordering Physician: Performed By: Suzy Rebollar Interpretation Summary The left ventricle is severely dilated. The ejection fraction is estimated to be 10-15%. Compared to the prior exam, the left ventricular function is mildly reduced. The right ventricle is mild to moderately dilated. Right ventricular systolic function is mildly reduced. There is moderate to severe mitral regurgitation. Compared to the prior echo study, there has been an increase in the severity of mitral regurgitation. There is moderate tricuspid regurgitation. Compared to the prior echo exam, there has been an increase in TR severity. The right ventricular systolic pressure is estimated at 55 mmHg assuming a right atrial pressure of 15 mm Hg. Compared to the prior echo exam, there has been an increase in the severity of pulmonary hypertension. There is a moderate left-sided pleural effusion (New). Procedure: A two-dimensional transthoracic echocardiogram with color flow and Doppler was performed. Comparison is made with the echocardiogram of 08/02/2016. The study quality was technically good. The patient was in normal sinus rhythm during the exam. The patient had occasional PVCs during the exam. Left Ventricle: The left ventricle is severely dilated. There is normal left ventricular wall thickness. There is no thrombus. The ejection fraction is estimated to be 10-15%. Compared to the prior exam, the left ventricular function is reduced. There is severe global hypokinesis of the left ventricle. Compared to the prior exam, the left ventricular wall motion has not changed. Assessment of diastolic parameters indicates a restrictive filling pattern of the left ventricle consistent with significantly elevated filling pressures. Right Ventricle: The right ventricle is mild to moderately dilated. Right ventricular systolic function is mildly reduced. Atria: Both atria are severely dilated. The left atrium has remained unchanged in size since the prior echo exam. The right atrium has mildly increased in size since the prior echo exam. There is no Doppler evidence for an interatrial shunt. Mitral Valve: The mitral valve leaflets are slightly calcified. There is moderate to severe mitral regurgitation. Compared to the prior echo study, there has been an increase in the severity of mitral regurgitation. Aortic Valve: The aortic valve is trileaflet. The aortic valve opens well. There is no aortic valve stenosis. No aortic regurgitation is present. Tricuspid Valve: The tricuspid annulus is dilated. There is moderate tricuspid regurgitation. Compared to the prior echo exam, there has been an increase in TR severity. The right ventricular systolic pressure is estimated at 55 mmHg assuming a right atrial pressure of 15 mm Hg. Compared to the prior echo exam, there has been an increase in the severity of pulmonary hypertension. Pulmonic Valve: The pulmonic valve leaflets are thin and pliable; valve motion is normal. There is trace pulmonic regurgitation. Great Vessels: The aortic root is normal size. The ascending aorta is at the upper limits of normal in size. The IVC is dilated (diameter is greater than 2.1 cm) and it collapses less than 50% with a sniff. This suggests a high right atrial pressure of 15 mm Hg. Pericardium/ Pleura There is a trivial pericardial effusion noted. There are no echocardiographic indications of cardiac tamponade. There is a moderate left-sided pleural effusion. MMode/2D Measurements & Calculations LVIDd: 7.4 cm RA long axis: 5.8 cm LVOT diam LVIDs: 6.7 cm LA A2 area: 40.5 cm FS: 8.6 % LA A4 area: 37.2 cm RA area: 26.9 cm AoV Opening EPSS: 2.8 cm LA length (vol): 7.5 cm RA vol: 106.0 ml IVSd: 0.89 cm LA vol: 170.8 ml RA : 53.5 ml/m2 Ao root diam LVPWd: 0.88 cm LA vol index Aortic Jxn IVC diam: 2.5 cm asc Aorta Diam: 3.3 cm EDV(MOD-sp2) LV gonsalves. diameter/BSA LV sys. diameter/BSA RVD1 (basal) (cm/m^2): 3.7 (cm/m^2): 3.4 : 4.7 cm ESV(MOD-sp2) EF(MOD-sp2) RVD2 (mid) TAPSE: 2.1 cm : 3.9 cm Doppler Measurements & Calculations Ao V2 max MV E max marshall MV E/A: 2.4 TR max marshall : 78.1 cm/sec : 95.4 cm/sec Med Peak E' Marshall : 317.6 cm/sec Ao max PG MV A max marshall TR max PG : 2.4 mmHg : 40.0 cm/sec E/E' med: 33.5 : 40.3 mmHg Ao mean PG MV P1/2t: 35.5 msecLat Peak E' Marshall PA V2 max : 66.6 cm/sec LVOT Max Marshall MR ERO: 0.10 cm2 E/E' lat: 17.6 PA mean PG : 43.5 cm/sec E/e' average: 25.6 : 0.74 mmHg PA Accel Time PIYUSH(I,D): 2.2 cm : 0.09 sec sev ratio MV dec time MV P1/2t max marshall Ao V2 mean LV V1 max PG : 0.12 sec : 57.4 cm/sec MVA(P1/2t): 6.2 cm2Ao V2 VTI: 9.2 cm LV V1 VTI: 5.6 cm PIYUSH(V,D): 2.0 cm2 MR flow rate PA V2 mean PIYUSH indexed to BSA : 44.2 cm3/sec : 39.2 cm/sec (cm^2/m^2): 1.1 MR PISA radius Reading Physician:CHANDU
--- NOTE | 2017-03-21 18:38 | NUR ---
Cardiac and Magnesium According to day shift report, pt. experienced episodes of V-tach in the morning, the longest being 36 beats. MD was notified per day nurse, Mily Amaral RN. Notified MD that magnesium 1.7 (low normal) this morning. 4g Magnesium IV was ordered and infused. Repeat BMP and magnesium tomorrow am.
[2017-03-22] VITALS (9 sets, daily range): BP systolic 100–120; BP diastolic 68–90; PULSE 79–99; RESP 18–26; O2SAT 95–97
--- NOTE | 2017-03-22 01:44 | NUR ---
tele/respiratory pt a/o times three, coop, dozing most of shift, napoleon well, tele= sr pvc's, mg rider finished, am mg level ordered, pt denies cp, pt denies pain pt denies n/v, no bm, mild sob with exertion, ls= right base crackles, resp rate low to mid 20's, sats on ra=94-97%, pt voiding per urinal, heparin gtt per cardiac heparin protocol, ptt therapeutic, am ptt, no bleeding noted, see assessment charting, plan:cardiology consult
[2017-03-22 04:22] LABS: BASOPHILS % (AUTO) 1.1 % (0-3); EOSINOPHILS % (AUTO) 8.3 % (0-5); MONOCYTES % (AUTO) 10.2 % (4-12); Mean Corpuscular Hemoglobin 33.5 pg (27.0-35.0); Mean Corpuscular Volume 96.1 fL (81-100); NEUTROPHILS % (AUTO) 33.7 % (40-74); Platelet Count 309 bil/L (150-400)
[2017-03-22 05:10] LABS: Magnesium 2.2 mg/dL (1.6-2.6); Phosphorus 3.5 mg/dL (2.5-4.9)
[2017-03-22 05:13] LABS: TROPONIN T 0.074 ug/L (0.0-0.011)
--- NOTE | 2017-03-22 06:43 | NUR ---
c/o cp with deep breath, pt c/o chest pain just after 0600 this am, diaphoretic, pt states mid sternal chest pressure worse with deep breath, ekg done, md aware of pt's complaints and troponin results and ekg results, pt on two liters 02 and heparin gtt, no new orders, md aware pt does not have orders for either ntg or pain meds, pt states discomfort subsiding now, will report to day shift rn,
[2017-03-22] MEDS: Potassium Chloride 20 mEq SR Tablet PO SCH (09:17)
[2017-03-22] MEDS: Furosemide 10 mg/mL 4 mL Inj IVPUSH SCH (09:18)
--- NOTE | 2017-03-22 11:07 | PCM.CHPCAR ---
Consult Subjective Date of service Mar 22, 2017 Date of admit Mar 21, 2017 at 02:35 Provider Requesting Consult Requesting Provider: Alex Eduardo DO Primary Care Physician Primary Care Physician: Val Heck DO Chief Complaint Chest pain, SOB History of Present Illness 61yoM hx chronic systolic heart failure, Hep C, meth abuse presented with SOB and CP that started the night of admission and woke him from sleep. He reports the pain is substernal, nonradiating, and worse with inspiration. He also reports orthopnea, fatigue, chills, sweats, epigastric pain, and cough. He denies palpitations, fever, URI symptoms, wheezing. Echo yesterday showed EF 10- 15%, worsened from prior 15-20%, with new left sided pleural effusion. CXR showed pulmonary edema and cardiomegaly, with new left lower lobe consolidation. After talking with the patient, he adamantly denies methamphetamine use; however his UA was positive for amphetamines which he attributes to being in the same room as his roommate who smokes "a lot of meth". Overnight, he complained of chest pain worse on deep inspiration. Today he states he is asymptomatic, and his chest pain and shortness of breath have resolved. He has no other complaints for now. PROBLEM LIST: # Systolic heart heart failure, EF 10-15% # Methamphetamine abuse # Dilated cardiomyopathy Review of Systems Review of Systems Comprehensive review of systems conducted and was negative except for the pertinent positives listed above. PMH Past Medical History Cardiomyopathy, Non ischemic Hepatitis C Methamphetamine abuse Chronic systolic CHF Past Surgical History Splenectomy Back surgery x2 Scheduled Aspirin Chew (Aspirin Chew) 81 Mg Chew 81 MG PO DAILY Atorvastatin Calcium (Atorvastatin Calcium) 80 Mg Tablet 80 MG PO HS (Reported) Carvedilol (Carvedilol) 6.25 Mg Tablet 6.25 MG PO BIDWM Furosemide (Furosemide) 20 Mg Tab 20 MG PO BID Lisinopril (Lisinopril) 2.5 Mg Tablet 2.5 MG PO DAILY (Reported) Potassium Chloride (Potassium Chloride) 20 Meq Tab.er.prt 20 MEQ PO DAILY Discontinued Medications Spironolactone (Aldactone) 25 Mg Tablet 25 MG PO DAILY Current Inpatient Medications Current Medications Heparin Sodium (Porcine) 5,000 unit Q8 SUBQ Last administered on 03/21/17t 09:14 ; Admin Dose 5,000 UNIT; Start 03/21/17 at 08:30; Stop 03/21/17 at 09:50; Status DC Al Hydrox/Mg Hydrox/Simethicone 30 ml Q6H PRN PO; Start 03/21/17 at 02:50 Ondansetron HCl 4 to 8 mg Q4H PRN IVPUSH; Start 03/21/17 at 02:50 Senna 17.2 mg BID PRN PO; Start 03/21/17 at 02:50 Polyethylene Glycol 17 gm DAILY PRN PO; Start 03/21/17 at 02:50 Acetaminophen 975 mg Q6H PRN PO; Start 03/21/17 at 02:50 Aspirin 81 mg DAILY PO Last administered on 03/22/17 09:17; Admin Dose 81 MG; Start 03/21/17 at 08:30 Carvedilol 6.25 mg BIDWM PO Last administered on 03/22/17 09:17; Admin Dose 6.25 MG; Start 03/21/17 at 08:00 Furosemide 20 mg BID PO Last administered on 03/21/17 09:14; Admin Dose 20 MG; Start 03/21/17 at 08:30; Stop 03/21/17 at 18:55; Status DC Potassium Chloride 20 meq DAILY PO Last administered on 03/22/17 09:17; Admin Dose 20 MEQ; Start 03/21/17 at 08:30 Spironolactone 25 mg DAILY PO; Start 03/21/17 at 08:30 Atorvastatin Calcium 80 mg HS PO Last administered on 03/21/17 20:34; Admin Dose 80 MG; Start 03/21/17 at 21:00 Lisinopril 2.5 mg DAILY PO Last administered on 03/22/17 09:17; Admin Dose 2.5 MG; Start 03/21/17 at 08:30 Heparin Sodium (Porcine) Per Protocol for a... PRN PRN IVPUSH; Start 03/21/17 at 09:40 Furosemide 40 mg BID IVPUSH Last administered on 03/22/17 09:18; Admin Dose 40 MG; Start 03/21/17 at 11:45 Albuterol/ Ipratropium 3 ml Q6H PRN NEB Last administered on 03/21/17 23:14; Admin Dose 3 ML; Start 03/21/17 at 15:25 Allergies: Coded Allergies: No Known Allergies (Verified Allergy, Unknown, 03/21/17) Family History Family History Grandfather of [place] at age of 80 Social History Hx Alcohol Use: Yes (quit drinking whiskey "quite a few years ago")Hx Substance Use: Yes (marijuana)Hx Tobacco Use: Yes Smoking Status: Former Smoker Living Arrangement: with Friends/Roommate Exam Vital Signs Vital Sign - Last Date Time Temp Pulse Resp B/P Pulse Ox O2 Delivery O2 Flow Rate FiO2 03/22/17 04:00 36.6 92 26 115/86 97 Room Air 03/21/17 16:20 2.00 Intake and Output 03/21/17 03/21/17 03/22/17 Cumulative From/Thru 15:00 23:00 07:00 03/21/17 01:32 - 03/22/17 06:29 Intake Total 770 ml 942 ml 1712 ml Output Total 1005 ml 1650 ml 3005 ml Balance -235 ml -708 ml -1293 ml Intake Oral 600 ml 598 ml 1198 ml IV Total 170 ml 344 ml 514 ml Output Urine Total 1005 ml 1650 ml 3005 ml # Bowel Movements 0 0 Objective General appearance: No apparent distress, disheveled, appears somnolent. HEET: Normocephalic atraumatic, no scleral icterus, tongue midline, mucous membranes moist Neck: supple Cardiovascular: RRR, normal S1 and normal S2, no murmurs/ rubs/gallops, PMI nondisplaced, no JVD, no peripheral edema Respiratory: Crackles at bilateral bases Abdomen: Soft, nontender, nondistended, + bowel sounds Neuro: Alert, no facial droop, tongue midline Skin: No rashes on face, neck, and lower extremities Lab and Diagnostics Result Diagram: 03/22/17 0358 03/22/17 0358 Additional Diagnostics: X-RAY CHEST ONE VIEW, PORTABLE IMPRESSION: 1. Mild cardiomegaly and pulmonary edema suggesting congestive heart failure. 2. Increased left lower lobe consolidation from prior study which may represent recurrent pneumonia or aspiration. Small left pleural effusion suspected. Dictated by: Raudel Madera M.D. on 03/21/2017 at 8:27 Approved by: Raudel Madera M.D. on 03/21/2017 at 8:31 X-RAY CHEST ONE VIEW IMPRESSION: Pulmonary edema and/or pneumonia involving the left lung base or small left pleural effusion persists. Continued radiographic surveillance to resolution is recommended. Dictated by: Seng Anaya RRA Interpreted: Winston Leger MD on 03/21/2017 at 8:19 Approved by: Winston Leger M.D. on 03/21/2017 at 12:06 12-lead ECG Interpretation: Sinus tachycardia with a rate of 106 Probable left atrial enlargement Incomplete LBBB LVH with secondary repolarization abnormality Anterior q waves, possibly due to LVH Time: 01:42 Interpreted by: ED physician Echocardiogram Interpretation Summary (08/02/2016) The left ventricle is markedly dilated. The ejection fraction is estimated to be 20-25%. There has been no significant change in LV EF since the previous study. There is severe global hypokinesis of the left ventricle. Spontaneous contrast is noted consistent with low flow state. Assessment of diastolic parameters indicates a restrictive filling pattern of the left ventricle consistent with significantly elevated filling pressures. The right ventricle is normal size. Right ventricular systolic function is mildly reduced. There is moderate mitral regurgitation. Compared to the prior echo study, there has been an increase in the severity of mitral regurgitation. There is mild tricuspid regurgitation. Compared to the prior echo exam, there has been no change in TR severity. The right ventricular systolic pressure is estimated at 34 mmHg assuming a right atrial pressure of 3 mm Hg. Reading Physician:PM Echocardiogram Interpretation Summary (03/21/2017) The left ventricle is severely dilated. The ejection fraction is estimated to be 10-15%. Compared to the prior exam, the left ventricular function is mildly reduced. The right ventricle is mild to moderately dilated. Right ventricular systolic function is mildly reduced. There is moderate to severe mitral regurgitation. Compared to the prior echo study, there has been an increase in the severity of mitral regurgitation. There is moderate tricuspid regurgitation. Compared to the prior echo exam, there has been an increase in TR severity. The right ventricular systolic pressure is estimated at 55 mmHg assuming a right atrial pressure of 15 mm Hg. Compared to the prior echo exam, there has been an increase in the severity of pulmonary hypertension. There is a moderate left-sided pleural effusion (New). Reading Physician:PM 1 DAY PHARMACOLOGICAL STRESS TEST (08/11/2016) IMPRESSION: 1. No scintigraphic evidence of myocardial ischemia. 2. ST depression is seen with exercise in leads V2-V6 as described, without scintigraphic correlate. 3. Diffuse left ventricular hypokinesis, with low left ventricular ejection fraction of 14%. 4. Partial left bundle branch block. Multifocal PVCs and couplets are present, which worsen with exercise. 5. Findings discussed with Dr. Heck on 08.11.16 at 1315 hrs. Dictated by: Raheem Xie M.D. on 08/11/2016 at 13:19 Approved by: Raheem Xie M.D. on 08/11/2016 at 13:19 Assessment & Plan Assessment # Acute on chronic exacerbation of systolic heart heart failure: Prior EF was 15 -20%, EF now 10-15% with worsening MR and TR. CXR shows cardiomegaly and pulmonary edema. He has been diuresed with a total of 120 mg IV furosemide over the last 24 hrs, and is improved symptomatically. Will start to decrease his furosemide dose back to his home dose. He is already medically managed with lisinopril, carvedilol, and spironolactone, although he admits to not taking these daily, stating he takes it several times per week. Given his meth abuse and recent positive test, this may be worsening meth-induced cardiomyopathy. However, as meth use can cause accelerated coronary artery disease and, thus, an ischemic cause should also be ruled out. He has refused catheterization in the past, and appears to be clinically improving, so we will optimize his medical management in an inpatient setting and have him follow up with Cardiology outpatient to discuss catheterization. He will not benefit from dual antiplatelet therapy given his troponin elevation is really for HF exacerbation , so will discontinue clopidogrel. - Continue aspirin - Stop clopidogrel - Stop heparin gtt - Continue furosemide, start decreasing to home dose - Continue Carvedilol 6.25 twice daily - Continue Lisinopril 2.5 mg daily - Continue Spironolactone for 25 mg daily - Ischemic evaluation with cardiac cath as outpatient (Dr. Gill) # Elevated troponin: Likely demand ischemia, as it appears to be improving. No acute ST changes on EKG. - Continue to monitor # Hyperlipidemia - Continue Atorvastatin 80mg qHS # Meth abuse: counselled on stopping meth completely. VTE Prophylaxis: Sub-Q Heparin (Unfractionated) VTE Mechanical Devices: Intermittant Pneumatic CD Resuscitation Status: CPR: Attempt Resuscitation Attending Statement ATTENDING ADDENDUM: I saw, examined, and evaluated the patient with Dr. Rohit Narayanan on 03/22/2017 and agree with the note as above along with my edits. Rohit Narayanan Mar 22, 2017 10:30 Leela Messer MD Mar 22, 2017 11:37
--- NOTE | 2017-03-22 15:32 | PCM.PNMED ---
Subjective Date of Service Mar 22, 2017 Subjective Subjective: Patient states it is feeling considerably better today. Continues to deny meth use however he discussed the effects of methadone is hard and the importance of abstaining from use. We also discussed his desire for extraordinary measures to save his life in the event that his heart were to stop. He states that in the event that his heart were to stop he would not prefer chest compressions and/or defibrillation, he also not like to be intubated. His medical chart was changed to reflect this. Events Overnight: No acute events overnight. ROS: Denies fever/chills, nausea/vomiting, headache, weakness, abdominal pain, chest pain, shortness of breath, increased swelling in hands or feet. Exam Vital Signs Vital Sign - Last Date Time Temp Pulse Resp B/P Pulse Ox O2 Delivery O2 Flow Rate FiO2 03/22/17 13:05 95 03/22/17 13:03 36.3 20 100/68 96 Nasal Cannula 2.00 Intake and Output 03/21/17 03/21/17 03/22/17 Cumulative From/Thru 15:00 23:00 07:00 03/21/17 01:32 - 03/22/17 06:29 Intake Total 770 ml 942 ml 1712 ml Output Total 1005 ml 1650 ml 3005 ml Balance -235 ml -708 ml -1293 ml Intake Oral 600 ml 598 ml 1198 ml IV Total 170 ml 344 ml 514 ml Output Urine Total 1005 ml 1650 ml 3005 ml # Bowel Movements 0 0 Exam General: No acute distress, well-developed, well-nourished Head: Normocephalic, atraumatic. External ears without defect. Eyes: Pupils equal, round, and reactive to light and accommodation. Anicteric sclerae, moist conjunctivae. Neck: Normal range of motion, no lymphadenopathy noted Cardiovascular: Regular rate and rhythm with no murmurs, rubs, or gallops appreciated Pulmonary: Moderate Rales bilaterally, no wheezes, or rhonchi. Normal respiratory effort with no use of accessory muscles. Abdomen: Bowel tones present. Soft, nontender, nondistended. Extremities: No clubbing, cyanosis, edema Skin: Normal temperature, turgor, and texture; no rash, ulcers, or subcutaneous nodules appreciated. Neurological: Cranial nerves grossly intact. Reflexes, coordination, and sensory function within normal limits. Normal muscle strength, tone, and bulk. Psychiatric: Normal mood and affect. Alert and oriented to person, place, and time IVs and Medications IV Fluids 350 mL normal saline delivered with IV medications. Medications Reviewed: Medications were reviewed in detail Lab and Diagnostics Result Diagram: 03/22/17 0358 03/22/17 0358 X-Rays, CTs and MRIs X-RAY CHEST ONE VIEW, PORTABLE IMPRESSION: 1. Mild cardiomegaly and pulmonary edema suggesting congestive heart failure. 2. Increased left lower lobe consolidation from prior study which may represent recurrent pneumonia or aspiration. Small left pleural effusion suspected. Dictated by: Raudel Madera M.D. on 03/21/2017 at 8:27 Approved by: Raudel Madera M.D. on 03/21/2017 at 8:31 X-RAY CHEST ONE VIEW IMPRESSION: Pulmonary edema and/or pneumonia involving the left lung base or small left pleural effusion persists. Continued radiographic surveillance to resolution is recommended. Dictated by: Seng Anaya RRA Interpreted: Winston Leger MD on 03/21/2017 at 8:19 Approved by: Winston Leger M.D. on 03/21/2017 at 12:06 12-lead ECG ECG Interpretation: Sinus tachycardia with a rate of 106 Probable left atrial enlargement Incomplete LBBB LVH with secondary repolarization abnormality Anterior q waves, possibly due to LVH Time: 01:42 Interpreted by: ED physician Cardiac Echo Impressions Echocardiogram Interpretation Summary (08/02/2016) The left ventricle is markedly dilated. The ejection fraction is estimated to be 20-25%. There has been no significant change in LV EF since the previous study. There is severe global hypokinesis of the left ventricle. Spontaneous contrast is noted consistent with low flow state. Assessment of diastolic parameters indicates a restrictive filling pattern of the left ventricle consistent with significantly elevated filling pressures. The right ventricle is normal size. Right ventricular systolic function is mildly reduced. There is moderate mitral regurgitation. Compared to the prior echo study, there has been an increase in the severity of mitral regurgitation. There is mild tricuspid regurgitation. Compared to the prior echo exam, there has been no change in TR severity. The right ventricular systolic pressure is estimated at 34 mmHg assuming a right atrial pressure of 3 mm Hg. Reading Physician:PM Echocardiogram Interpretation Summary (03/21/2017) The left ventricle is severely dilated. The ejection fraction is estimated to be 10-15%. Compared to the prior exam, the left ventricular function is mildly reduced. The right ventricle is mild to moderately dilated. Right ventricular systolic function is mildly reduced. There is moderate to severe mitral regurgitation. Compared to the prior echo study, there has been an increase in the severity of mitral regurgitation. There is moderate tricuspid regurgitation. Compared to the prior echo exam, there has been an increase in TR severity. The right ventricular systolic pressure is estimated at 55 mmHg assuming a right atrial pressure of 15 mm Hg. Compared to the prior echo exam, there has been an increase in the severity of pulmonary hypertension. There is a moderate left-sided pleural effusion (New). Reading Physician:PM . Additional Diagnostics 1 DAY PHARMACOLOGICAL STRESS TEST (08/11/2016) IMPRESSION: 1. No scintigraphic evidence of myocardial ischemia. 2. ST depression is seen with exercise in leads V2-V6 as described, without scintigraphic correlate. 3. Diffuse left ventricular hypokinesis, with low left ventricular ejection fraction of 14%. 4. Partial left bundle branch block. Multifocal PVCs and couplets are present, which worsen with exercise. 5. Findings discussed with Dr. Heck on 08.11.16 at 1315 hrs. Dictated by: Raheem Xie M.D. on 08/11/2016 at 13:19 Approved by: Raheem Xie M.D. on 08/11/2016 at 13:19 . Assessment & Plan Amando Servin is a 61-year-old male with a past medical history significant for chronic systolic heart failure, hepatitis C, and methamphetamine abuse presented to the ED with complaints of shortness of breath and chest pain that started last night and woke him up, but has persisted throughout the day. Acute on Chronic Systolic heart failure, present on admission. Ongoing. - Last echo 08/02/16 EF 20-25% as above, these changes been present since 2016, patient has never undergone catheterization "per his choice" according to cardiology note on 01/02/16 - Patient failed stress test on 07/2016 results as above - Repeat Echo 03/21 shows EF 10-15% Results as above - CXR shows fluid bilaterally, obvious JVD on exam -Serial troponins elevated likely due to increased demand vs chronic ischemia - PO Lasix 40 mg twice a day - Continue his CHF regimen: Carvedilol 6.25 twice daily Lisinopril 2.5 mg daily Spironolactone for 12.5 mg daily - Cardiology consulted, recommends medical management Elevated troponin of uncertain significance, present on admission. Acute. Ongoing. - Patient has extensive cardiac history with EF 20-25%, likely demand etiology combined with chronic ischemia - Repeat Echo 03/21 shows EF 10-15% Results as above - His previous troponins were 0.04-0.05, this admit elevated at 0.064- 0.108 - EKG without signs of acute ST changes - Continue to trend troponins - Monitor on telemetry - Continue Aspirin 81mg - Cardiology consulted, recommends medical management Acute hypoxemic respiratory distress, present on admission. Acute. Systolic CHF likely due to CHF exacerbation since minimal increases in WBC counts, no fevers, obvious JVD. - Patient improved with DuoNeb treatment in ED, no history of asthma or COPD. Continue duoneb Q6 PRN, - CXR showing changes likely due to CHF - PO Lasix 40 mg twice a day Hyperlipidemia, present on admission. Chronic. - Continue Atorvastatin 80mg qHS Methamphetamine abuse, present on admission. Chronic. - Patient reports that he used to smoke meth but has quit "many years ago"; however, he does have multiple recent UTox positive for meth, including in the ED - Patient counseled regarding use of meth in combination with his heart history. PRN Medications - Acetaminophen as needed for mild pain/fever/headache - Bowel regimen as needed - Antiemetic as needed Disposition: Patient is likely to require another 24 hours of medical management before discharge home VTE Prophylaxis: Sub-Q Heparin (Unfractionated) VTE Mechanical Devices: Intermittant Pneumatic CD Resuscitation Status: CPR: Attempt Resuscitation Attending Statement The patient was seen and examined together with Dr. Eduardo on 03/22/2017 and I agree with the history, exam and plan as outlined in the note above. . Alex Eduardo DO Mar 22, 2017 15:32 Skip Nichols MD Mar 24, 2017 07:53
--- NOTE | 2017-03-22 17:00 | DRSVH ---
PROCEDURE: X-RAY CHEST ONE VIEW, PORTABLE ([id number]) INDICATIONS: SHORTNESS OF BREATH TECHNIQUE: One view of the chest was acquired. COMPARISON: [facility], CR, XR CHEST 1VW, 03/21/2017, 5:21. [facility], CR, XR CHEST 1VW (PORTABLE), 03/21/2017, 1:47. FINDINGS: Surgical changes and devices: Fixation hardware incompletely visualized within the thoracolumbar spin e.. Lungs and pleura: Diffuse, bilateral interstitial opacities are present with mid and basilar predomin ance suggestive of edema. There is a small left pleural effusion and left basilar consolidation. No pneumothorax. Mediastinum: Mediastinal contours appear normal. Heart size is enlarged. Bones and chest wall: No suspicious bony lesions. Overlying soft tissues appear unremarkable. IMPRESSION: Pulmonary edema and/or pneumonia the left lung base not significantly changed from prior examination. Continued radiographic surveillance to resolution is recommended. Dictated by: Seng RUIZ Interpreted: Payton Laura MD on 03/22/2017 at 10:54 Approved by: Payton Laura M.D. on 03/22/2017 at 16:58
--- NOTE | 2017-03-22 17:34 | NUR ---
tries to leave AMA/palliative 1699 pt wakes from a nap and rips off leads, gets dressed and is saying he is leaving. Dr Banda paged to bedside and promptly arrives. Pt is understandably upset with his current medical condition and prognosis and states "id rather go home and than in here". Discussed the possibility of palliative care and plan to have his come in tomorrow to discuss palliative options moving forward. Pt agrees to stay and apologetic for his outburst.
[2017-03-22] MEDS: Albuterol-Ipratropium 3 mL Inhalation Solution NEB PRN (18:45)
[2017-03-23] MEDS: Heparin 5,000 Unit/mL Inj SUBQ SCH ×2 (00:22→07:49)
[2017-03-23 03:05] LABS: Mean Corpuscular Hemoglobin 33.3 pg (27.0-35.0)
[2017-03-23 04:20] VITALS: PULSE 86; RESP 18; O2SAT 96
--- NOTE | 2017-03-23 05:52 | NUR ---
Activity: Pt has shower @ HS. - Pt become very SOB with minimal activity- staff assisting with shower- pt encouraged to sit and wear 02. Seroquel given at HS with good results- pt sleeping comfortably throughout night. no complaints. Care ongoing.
[2017-03-23 07:45] VITALS: BP 101/59; PULSE 79; RESP 20; O2SAT 95
[2017-03-23] MEDS: Potassium Chloride 20 mEq SR Tablet PO SCH (07:49)
--- NOTE | 2017-03-23 10:44 | PCM.PNCARD ---
Subjective Date of service Mar 23, 2017 Chief Complaint Chest pain, SOB History of Present Illness 61yoM hx chronic systolic heart failure, Hep C, meth abuse presented with SOB and CP that started the night of admission and woke him from sleep. He reports the pain is substernal, nonradiating, and worse with inspiration. He also reports orthopnea, fatigue, chills, sweats, epigastric pain, and cough. He denies palpitations, fever, URI symptoms, wheezing. Echo yesterday showed EF 10- 15%, worsened from prior 15-20%, with new left sided pleural effusion. CXR showed pulmonary edema and cardiomegaly, with new left lower lobe consolidation. After talking with the patient, he adamantly denies methamphetamine use; however his UA was positive for amphetamines which he attributes to being in the same room as his roommate who smokes "a lot of meth". Overnight, he became anxious about his prognosis and tried to leave AMA. After discussion with the primary team, he agreed to stay and decided to talk to Palliative Care. He was up to take a shower last night and became significantly short of breath. Otherwise uneventful. Today he reports he is asymptomatic and denies further shortness of breath or any new chest pain or edema. PROBLEM LIST: # Systolic heart heart failure, EF 10-15% # Methamphetamine abuse # Dilated cardiomyopathy Subjective: Comprehensive review of systems conducted and was negative except for the pertinent positives listed above. Exam Vital Signs Vital Sign - Last Date Time Temp Pulse Resp B/P Pulse Ox O2 Delivery O2 Flow Rate FiO2 03/23/17 07:55 Supplement Oxygen 03/23/17 07:45 36.6 79 20 101/59 95 2.00 Intake and Output 03/22/17 03/22/17 03/23/17 Cumulative From/Thru 14:59 22:59 06:59 03/21/17 01:32 - 03/23/17 05:05 Intake Total 820 ml 226 ml 2758 ml Output Total 1760 ml 800 ml 5565 ml Balance -940 ml -574 ml -2807 ml Intake Oral 820 ml 226 ml 2244 ml IV Total 514 ml Output Urine Total 1760 ml 800 ml 5565 ml # Voids 1 1 # Bowel Movements 0 0 Additional Information: General appearance: No apparent distress, disheveled, appears somnolent. HEET: Normocephalic atraumatic, no scleral icterus, tongue midline, mucous membranes moist Neck: supple Cardiovascular: RRR, normal S1 and normal S2, no murmurs/ rubs/gallops, PMI nondisplaced, no JVD, no peripheral edema Respiratory: Crackles at left lower base Abdomen: Soft, nontender, nondistended, + bowel sounds Neuro: Alert, no facial droop, tongue midline Skin: No rashes on face, neck, and lower extremities Lab and Diagnostics Result Diagram: 03/23/1723703/23/178 Assessment & Plan Assessment # Acute on chronic exacerbation of systolic heart heart failure: Prior EF was 15 -20%, EF now 10-15% with worsening MR and TR. CXR shows cardiomegaly and pulmonary edema. He is diuresing well and improving clinically. He is already medically managed with lisinopril, carvedilol, and spironolactone, although he admits to not taking these daily. As previously discussed, his heart failure may be due to ischemic cardiomyopathy versus meth-induced cardiomyopathy. He has refused catheterization in the past, and appears to be clinically improving , so we will continue to optimize his medical management in an inpatient setting and have him follow up with Cardiology outpatient to discuss catheterization. - Continue aspirin - Continue furosemide 40mg PO daily with PRN dosing if weight gain - Continue Carvedilol 6.25 twice daily - Continue Lisinopril 2.5 mg daily - Continue Spironolactone for 25 mg daily - Ischemic evaluation with cardiac cath as outpatient (Dr. Gill) - No AICD per code status as below # Elevated troponin: Likely demand ischemia, as it appears to be improving. No acute ST changes on EKG. - Continue to monitor # Hyperlipidemia - Continue Atorvastatin 80mg qHS # Meth abuse: counselled on stopping meth completely. # Goals of care: Patient is DNR/DNI. No need for AICD. Problems: VTE Prophylaxis: Sub-Q Heparin (Unfractionated) VTE Mechanical Devices: Intermittant Pneumatic CD Resuscitation Status: CPR: Attempt Resuscitation Attending Statement ATTENDING ADDENDUM: I saw, examined, and evaluated the patient with Dr. Rohit Narayanan on 03/23/2017 and agree with the note as above along with my edits. Rohit Narayanan Mar 23, 2017 10:34 Leela Messer MD Mar 23, 2017 12:02
--- NOTE | 2017-03-23 11:34 | NUR ---
Palliative Care Palliative Care received order from Dr Eduardo (R1) 03/22/17 to assist with goals of care. Patient admitted 03/21/17. Bessie Hernandez () [phone] Palliative Care to follow. Beverley Esteves
[2017-03-23 11:50] VITALS: PULSE 77; RESP 18; O2SAT 94
--- NOTE | 2017-03-23 13:00 | PCM.DIMED ---
Alex Eduardo DO 03/23/17 0950: Discharge Instructions Date of Service Mar 23, 2017 Dates of Hospitalization Mar 21, 2017 at 02:35 Discharge Diagnosis Discharge Diagnosis Acute on Chronic Systolic heart failure Elevated troponin of uncertain significance Acute hypoxemic respiratory distress Hyperlipidemia Medication Instructions Additional med instructions Please take all medications at home as previously prescribed. Test Results Test Results Multiple x-rays were completed during her stay in hospital, they showed increased fluid in the lungs due to your congestive heart failure. An echocardiogram completed during her stay shows that your heart function has decreased to 10-15% (normal 60-65%) Diet Discharge Diet: Heart Healthy Activity Discharge Activity: No restrictions Call your provider Call your provider for: Fever or Chills, Shortness of breath, Bleeding, Chest pain, Vomitting, Excessive diarrhea, Weakness (unilateral) Patient Instructions Patient Instructions We would like you to be careful about taking your home meds as previously prescribed. I believe that the lapses in your medication is what caused her to become symptomatic and required being seen here in the hospital. Also, based on your concerns of "not wanting to in the hospital" in combination with the lack of aggressive therapies suggested by cardiology, we suggest going home with home health management for your CHF. At a future date may be appropriate to set up an outpatient appointment to visit with hospice care to discuss your wishes and concerns in this matter. Follow-up plan Follow-up with the residency clinic within the next week for titration of medications as needed. Follow-up Provider: [facility] Follow-up with PCP in: 1 week Skip Nichols MD 03/24/17 0754: Discharge Instructions Attending's Statement The patient was seen and examined together with Dr. Eduardo on 03/23/2017 and I agree with the history, exam and plan as outlined in the note above. . Alex Eduardo DO Mar 23, 2017 09:50 Skip Nichols MD Mar 24, 2017 07:54
--- NOTE | 2017-03-23 13:27 | PCM.DC.MED ---
Discharge Summary Date of Service Mar 23, 2017 Dates of Hospitalization Date of Hospital Admission Mar 21, 2017 at 02:35 Date of Discharge: Mar 23, 2017 Providers: Admitting Physician: Joe Wilkins MD Primary Care Physician: Chaka Blunt DO Attending Physician: Skip Nichols MD Diagnosis at Time of Discharge Diagnosis at Time of Discharge Acute on Chronic Systolic heart failure Elevated troponin of uncertain significance Acute hypoxemic respiratory distress Hyperlipidemia Consultations Cardiology: Dr. Messer Procedures XRay, CTs & MRIs X-RAY CHEST ONE VIEW, PORTABLE IMPRESSION: 1. Mild cardiomegaly and pulmonary edema suggesting congestive heart failure. 2. Increased left lower lobe consolidation from prior study which may represent recurrent pneumonia or aspiration. Small left pleural effusion suspected. Dictated by: Raudel Madera M.D. on 03/21/2017 at 8:27 Approved by: Raudel Madera M.D. on 03/21/2017 at 8:31 X-RAY CHEST ONE VIEW IMPRESSION: Pulmonary edema and/or pneumonia involving the left lung base or small left pleural effusion persists. Continued radiographic surveillance to resolution is recommended. Dictated by: Seng Anaya [facility] Interpreted: Winston Leger MD on 03/21/2017 at 8:19 Approved by: Winston Leger M.D. on 03/21/2017 at 12:06 ECG 12 Lead ECG Interpretation: Sinus tachycardia with a rate of 106 Probable left atrial enlargement Incomplete LBBB LVH with secondary repolarization abnormality Anterior q waves, possibly due to LVH Time: 01:42 Interpreted by: ED physician Cardiac Echo Impression Echocardiogram Interpretation Summary (08/02/2016) The left ventricle is markedly dilated. The ejection fraction is estimated to be 20-25%. There has been no significant change in LV EF since the previous study. There is severe global hypokinesis of the left ventricle. Spontaneous contrast is noted consistent with low flow state. Assessment of diastolic parameters indicates a restrictive filling pattern of the left ventricle consistent with significantly elevated filling pressures. The right ventricle is normal size. Right ventricular systolic function is mildly reduced. There is moderate mitral regurgitation. Compared to the prior echo study, there has been an increase in the severity of mitral regurgitation. There is mild tricuspid regurgitation. Compared to the prior echo exam, there has been no change in TR severity. The right ventricular systolic pressure is estimated at 34 mmHg assuming a right atrial pressure of 3 mm Hg. Reading Physician:PM Echocardiogram Interpretation Summary (03/21/2017) The left ventricle is severely dilated. The ejection fraction is estimated to be 10-15%. Compared to the prior exam, the left ventricular function is mildly reduced. The right ventricle is mild to moderately dilated. Right ventricular systolic function is mildly reduced. There is moderate to severe mitral regurgitation. Compared to the prior echo study, there has been an increase in the severity of mitral regurgitation. There is moderate tricuspid regurgitation. Compared to the prior echo exam, there has been an increase in TR severity. The right ventricular systolic pressure is estimated at 55 mmHg assuming a right atrial pressure of 15 mm Hg. Compared to the prior echo exam, there has been an increase in the severity of pulmonary hypertension. There is a moderate left-sided pleural effusion (New). Reading Physician:PM . Other Diagnostics 1 DAY PHARMACOLOGICAL STRESS TEST (08/11/2016) IMPRESSION: 1. No scintigraphic evidence of myocardial ischemia. 2. ST depression is seen with exercise in leads V2-V6 as described, without scintigraphic correlate. 3. Diffuse left ventricular hypokinesis, with low left ventricular ejection fraction of 14%. 4. Partial left bundle branch block. Multifocal PVCs and couplets are present, which worsen with exercise. 5. Findings discussed with Dr. Blunt on 08.11.16 at 1315 hrs. Dictated by: Raheem Xie M.D. on 08/11/2016 at 13:19 Approved by: Raheem Xie M.D. on 08/11/2016 at 13:19 . Brief History Taken from H&P completed by Dr. Paez: 61yoM hx chronic systolic heart failure, Hep C, meth abuse presented with SOB and CP that started the night of admission and woke him from sleep. He reports the pain is substernal, nonradiating, and worse with inspiration. He also reports orthopnea, fatigue, chills, sweats, epigastric pain, and cough. He denies palpitations, fever, URI symptoms, wheezing. Echo yesterday showed EF 10- 15%, worsened from prior 15-20%, with new left sided pleural effusion. CXR showed pulmonary edema and cardiomegaly, with new left lower lobe consolidation. After talking with the patient, he adamantly denies methamphetamine use; however his UA was positive for amphetamines which he attributes to being in the same room as his roommate who smokes "a lot of meth". Overnight, he became anxious about his prognosis and tried to leave AMA. After discussion with the primary team, he agreed to stay and decided to talk to Palliative Care. He was up to take a shower last night and became significantly short of breath. Otherwise uneventful. Today he reports he is asymptomatic and denies further shortness of breath or any new chest pain or edema. Hospital Course Amando Servin is a 61-year-old male with a past medical history significant for chronic systolic heart failure, hepatitis C, and methamphetamine abuse presented to the ED with complaints of shortness of breath and chest pain that started last night and woke him up, but has persisted throughout the day. Patient was seen by cardiology and determined that he is not a good candidate at this time for invasive cardiac procedures. Clinically the patient is feeling better as of this morning and is able to return home from a medical standpoint however he requires close follow-up to ensure that he is taking his medications appropriately. Patient currently lives in [facility], and due to his limited ability to get around secondary to his decreased heart function he presents as a appropriate candidate for home health, specifically for CHF management. Patient would require a minimum of 2-3 visits per week to follow-up on medication management, to ensure that he is taking medications as prescribed. Also weight monitoring to assess for fluid overload would be beneficial in his case. We would also like him to follow-up closely with his primary care facility to ensure that as he takes his medications as prescribed that his kidney function remains uncompromised. Of note: This patient has been seen in multiple facilities and has a history of leaving AMA. On 03/22 as the patient attempted to leave AMA I discussed with him his reasons for doing so, his main concern at that time was that he "did not want to in the hospital" At some point in the future it may present itself as appropriate to discuss hospice care to address these concerns, because given his current cardiac function, the very limited interventions available, and the fact that the patient continues to return to the hospital whenever cardiac function is not optimized, his chances of dying in the hospital are considerably increased. Acute on Chronic Systolic heart failure, present on admission. Ongoing. -Previous echo 08/02/16 EF 20-25% as above, these changes been present since 2015 , patient has never undergone catheterization "per his choice" according to cardiology note on 01/02/16 - Patient failed stress test on 07/2016 results as above - Repeat Echo 03/21 shows EF 10-15% Results as above - CXR shows fluid bilaterally, obvious JVD on exam -Serial troponins elevated likely due to increased demand vs chronic ischemia - PO Lasix 40 mg twice a day - Continue his CHF regimen: Carvedilol 6.25 twice daily Lisinopril 2.5 mg daily Spironolactone for 12.5 mg daily - Cardiology consulted, recommends medical management Elevated troponin of uncertain significance, present on admission. Acute. Ongoing. - Patient has extensive cardiac history with EF 20-25%, likely demand etiology combined with chronic ischemia - Repeat Echo 03/21 shows EF 10-15% Results as above - His previous troponins were 0.04-0.05, this admit elevated at 0.064- 0.108, - EKG without signs of acute ST changes - Continue Aspirin 81mg - Cardiology consulted, recommends medical management Acute hypoxemic respiratory distress, present on admission. Acute. Systolic CHF likely due to CHF exacerbation since minimal increases in WBC counts, no fevers, obvious JVD. - CXR showing changes likely due to CHF -Continue home Lasix regimen Hyperlipidemia, present on admission. Chronic. - Continue Atorvastatin 80mg qHS Methamphetamine abuse, present on admission. Chronic. - Patient reports that he used to smoke meth but has quit "many years ago"; however, he does have multiple recent UTox positive for meth, including in the ED - Patient counseled regarding use of meth in combination with his heart history. Exam Vital Signs (Last) Date Time Temp Pulse Resp B/P Pulse Ox O2 Delivery O2 Flow Rate FiO2 03/23/17 11:50 77 18 94 Room Air 03/23/17 07:45 36.6 101/59 2.00 Exam General: No acute distress, well-developed, well-nourished Head: Normocephalic, atraumatic. External ears without defect. Eyes: Pupils equal, round, and reactive to light and accommodation. Anicteric sclerae, moist conjunctivae. Neck: Normal range of motion, no lymphadenopathy noted, mild JVD Cardiovascular: Regular rate and rhythm with no murmurs, rubs, or gallops appreciated Pulmonary: Minor Rales in the lower lung millan, wheezes, or rhonchi. Normal respiratory effort with no use of accessory muscles. Abdomen: Bowel tones present. Soft, nontender, nondistended. Extremities: No clubbing, cyanosis, edema Skin: Normal temperature, turgor, and texture; no rash, ulcers, or subcutaneous nodules appreciated. Neurological: Cranial nerves grossly intact. Reflexes, coordination, and sensory function within normal limits. Normal muscle strength, tone, and bulk. Psychiatric: Normal mood and affect. Alert and oriented to person, place, and time Test 03/21/17 02:35 03/22/17 03:58 03/22/17 09:33 03/22/17 17:33 Hold Urine Received (Received) Neutrophils (%) (Auto) 33.7% (40-74) Lymphocytes (%) (Auto) 46.5% (14-46) Monocytes (%) (Auto) 10.2% (4-12) Eosinophils (%) (Auto) 8.3% (0-5) Basophils (%) (Auto) 1.1% (0-3) Phosphorus Level 3.5mg/dL (2.5-4.9) Magnesium Level 2.2mg/dL (1.6-2.6) Procalcitonin 0.09ng/mL (0.00-0.08) Activated Partial Thromboplast Time 78.1sec (22.8-33.0) Troponin T 0.061ug/L (0.0-0.011) Test 03/23/17 02:38 White Blood Count 7.8th/mm3 (3.8-10.1) Red Blood Count 4.35mil/mm3 (4.40-5.80) Hemoglobin 14.5g/dL (13.8-17.2) Hematocrit 42.2% (41.0-50.0) Mean Corpuscular Volume 97.0fL (81-100) Mean Corpuscular Hemoglobin 33.3pg (27.0-35.0) Mean Corpuscular Hemoglobin Concent 34.4% (32.0-37.0) Red Cell Distribution Width 13.4% (12.3-15.4) Platelet Count 305bil/L (150-400) Sodium Level 139mEq/L (134-144) Potassium Level 4.6mEq/L (3.5-5.2) Chloride Level 102mEq/L (97-108) Carbon Dioxide Level 24mmol/L (18-29) Blood Urea Nitrogen 20mg/dL (8-27) Creatinine 0.84mg/dL (0.76-1.27) Estimat Glomerular Filtration Rate 99mL/min (>59) Glucose Level 110mg/dL (60-99) Calcium Level 8.8mg/dL (8.5-10.1) Total Bilirubin 0.7mg/dL (0.0-1.2) Aspartate Amino Transf (AST/SGOT) 67U/L (0-50) Alanine Aminotransferase (ALT/SGPT) 49U/L (0-44) Alkaline Phosphatase 104U/L (25-160) Total Protein 6.0g/dL (6.4-8.4) Albumin 2.5g/dL (3.4-5.0) Discharge Medications Discharge Medications Aspirin Chew (Aspirin Chew) 81 Mg Chew 81 MG PO DAILY Prescribed by: SHANTI LOPEZ MD Atorvastatin Calcium (Atorvastatin Calcium) 80 Mg Tablet 80 MG PO HS (Reported) Carvedilol (Carvedilol) 6.25 Mg Tablet 6.25 MG PO BIDWM Prescribed by: BERLIN DENISE MD Furosemide (Furosemide) 20 Mg Tab 20 MG PO BID Prescribed by: CHAKA BLUNT DO Lisinopril (Lisinopril) 2.5 Mg Tablet 2.5 MG PO DAILY (Reported) Potassium Chloride (Potassium Chloride) 20 Meq Tab.er.prt 20 MEQ PO DAILY Prescribed by: MONA ZARATE MD Additional med instructions Please take all medications at home as previously prescribed. Followup Plan Disposition: Home Follow-up plan Follow-up with the residency clinic within the next week for titration of medications as needed. Discharge Diet: Heart Healthy Discharge Activity: No restrictions Patient Instructions We would like you to be careful about taking your home meds as previously prescribed. I believe that the lapses in your medication is what caused her to become symptomatic and required being seen here in the hospital. Also, based on your concerns of "not wanting to in the hospital" in combination with the lack of aggressive therapies suggested by cardiology, we suggest going home with home health management for your CHF. At a future date may be appropriate to set up an outpatient appointment to visit with hospice care to discuss your wishes and concerns in this matter. Follow-up Provider: [facility] Follow-up with PCP in: 1 week Time spent Greater than 30 minutes was spent in preparation of discharge with greater than 50% of that time dedicated to patient counseling and coordination of care. . Attending Statement The patient was seen and examined together with Dr. Eduardo on 03/23/2017 and I agree with the history, exam and plan as outlined in the note above. . Alex Eduardo DO Mar 23, 2017 13:27 Skip Nichols MD Mar 24, 2017 07:54
--- NOTE | 2017-03-23 13:49 | NUR ---
Social Work: Discharge/Multidisciplinary Rounds D: Pt discussed in multidisciplinary rounds with attending provider. The patient has a palliative consult to discuss goals of care . He would like the patient to be referred to hospice for CHF management. EMERGENCY MEDICINE placed referral to hosp[facility]. Per palliative care provider, Dr. Busby, the patient did sign a POLST with limited interventions but does not want hospice and wishes to return to the hospital in the future. EMERGENCY MEDICINE informed resident and attending provider of this. Pt is still appropriate for discharge home with home health to manage the CHF. F2F completed with copy on chart. HH order for CHF management has been placed. EMERGENCY MEDICINE acknowledges order and inquired if PT or other services were needed. Resident provider states that they are not. EMERGENCY MEDICINE met with the patient at bedside to confirm discharge plan and assess for unmet needs. EMERGENCY MEDICINE explained the recommendation for HH for ongoing CHF management. The patient agrees with this and does not have a preference for companies. As pt lives in [place], referral was made to Gordon Beckman with [facility]. Access provided. He is aware that the patient is discharging today, they will follow up with him tomorrow to coordinate an intake time. A: Pt who lives in [place], with his . P: Pt to discharge home with [facility] for RN care for CHF management. YUAN Cameron
--- NOTE | 2017-03-23 13:54 | NUR ---
Palliative care note D/A: Palliative care has received new referral on this pt with noted cardiac needs. Dr. Nichols notes that pt may be eligible for hospice and would like a hospice info visit erma. Dr. Busby is not sure that pt end stage cardiac disease meets criteria for hospice per hospice regulations. He plans on calling Dr. Betsey Baird, hospice special forces medical sergeant, to discuss. Case discussed with luisa Sesay. Dr. Busby arrives after having examined pt and also discussed possibility of hospice with pt. Pt has strongly declined any move toward comfort care. He notes that his goal is to continue to come to hospital for care. He states he is aware of what he needs to do to take care of himself and improve his functioning/medical condition and is planning on doing so after discharge. Pt declines hospice at this time. Phone call to luisa Sesay to explain above and that she need not arrange for hospice info visit. P: Palliative care to follow as needed. Zahra NAVARRO, CCM
--- NOTE | 2017-03-23 14:05 | PCM.CONPAL ---
Date of Service Mar 23, 2017 Date of Hospital Admission: Mar 21, 2017 at 02:35 Date of Palliative Consult: Mar 23, 2017 Requesting Provider: Alex Eduardo DO Reason Palliative Care Consult: Goals of Care Discussion Hospital Unit @time of consult: [facility] Palliative Care Recommendation Summary of palliative recommendations: -Symptom management (Pain/other)- continued management per medical service -DPOA/Advanced Directives/POLST- assisted patient in completion of a new POLST today. It indicates DO NOT RESUSCITATE/DO NOT INTUBATE/limited interventions/ no artificial nutrition/antibiotics okay. Copies placed in his hospital chart and in palliative office, with patient being given original and another copy. Discussed hospice care with him but he is uninterested at this time. Problems: End of Life Preferences DO NOT RESUSCITATE/DO NOT INTUBATE/limited interventions/no artificial nutrition /antibiotics okay Disposition Home Resuscitation Status Resuscitation Status: DNR/DNI:Do Not Resuscitate/Intubate POLST Updates/Changes Previous POLST?: No POLST Last Review Date: Mar 23, 2017 Antibiotics: Determine Use or Limitations Artificially Admin Nutrition: No Artifical Nutrition by Tube POLST Discussed with: Patient POLST Review Outcome: New Form Completed . Advanced Care Planning Address: POLST, Code status change Pain: None Symptom management: Dyspnea Pt History History of Present Illness Per admission H&P: 61yoM hx chronic systolic heart failure, Hep C, meth abuse presented with SOB and CP that started the night of admission and woke him from sleep. He reports the pain is substernal, nonradiating, and worse with inspiration. He also reports orthopnea, fatigue, chills, sweats, epigastric pain, and cough. He denies palpitations, fever, URI symptoms, wheezing. Echo yesterday showed EF 10- 15%, worsened from prior 15-20%, with new left sided pleural effusion. CXR showed pulmonary edema and cardiomegaly, with new left lower lobe consolidation. After talking with the patient, he adamantly denies methamphetamine use; however his UA was positive for amphetamines which he attributes to being in the same room as his roommate who smokes "a lot of meth". Overnight, he became anxious about his prognosis and tried to leave AMA. After discussion with the primary team, he agreed to stay and decided to talk to Palliative Care. He was up to take a shower last night and became significantly short of breath. Otherwise uneventful. Today he reports he is asymptomatic and denies further shortness of breath or any new chest pain or edema. Palliative medicine consulted to assist in determination of goals of care Prior to visiting, I reviewed his records in the EMR in detail, spoke with his nurse and with his medical team. Also spoke with cardiology/Dr. Messer When I arrived, patient was lying in bed. He was oriented and noted he was comfortable. We spoke at length, reviewing his recent past medical history, his frequent recent readmissions, symptoms, outpatient issues contributing to his readmissions, etc. He reiterated on multiple occasions that while he does not want to be resuscitated in the event of arrest, he does want to continue to receive ongoing medical care, would want to be hospitalized if necessary, etc. He notes that he has not been completely compliant with his medication program and realizes now that he must take all of his medications, all the time as directed. He also realizes that some of his activities may not support his well -being and indicated that he will hereafter take better care of himself. We discussed POLST and I assisted him in completing a new document. 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 Past Medical History Significant PMH Noted: Cardiomyopathy, Non ischemic Hepatitis C Methamphetamine abuse Chronic systolic CHF Surgical History Splenectomy Back surgery x2 Social History Occupation: Medically disabled Lives with his and roommates Palliative Performance Scale PPS Patient Status: Baseline PPS Ambulation: Full PPS Activity: Unable to do most activity PPS Self-Care: Full Self Care PPS Intake: Normal PPS Conscious Level: Full Performance Scale: 50% ADLs ADL Patient Status: Baseline ADL Ambulation: Mainly Sit/Lie ADL Dressing: Full ADL Feeding: Full ADL Hygene/bathing: Full ADL Transfers: Full POLST at Time of Admission Previous POLST?: No Allergy Allergies Reviewed: Yes Medications Current Medications: Current Medications Atorvastatin Calcium 80 mg HS PO Last administered on 03/22/17 20:30; Admin Dose 80 MG; Start 03/21/17 at 21:00 Albuterol/ Ipratropium 3 ml Q6H PRN NEB Last administered on 03/22/17 18:45; Admin Dose 3 ML; Start 03/21/17 at 15:25 Heparin Sodium (Porcine) 5,000 unit Q8 SUBQ Last administered on 03/23/17 07:49 ; Admin Dose 5,000 UNIT; Start 03/23/17 at 00:30 Furosemide 40 mg DAILY PO Last administered on 03/23/17 07:48; Admin Dose 40 MG ; Start 03/23/17 at 08:30 Quetiapine Fumarate 50 mg HS PO Last administered on 03/22/17 20:30; Admin Dose 50 MG; Start 03/22/17 at 21:00 Scheduled Aspirin Chew (Aspirin Chew) 81 Mg Chew 81 MG PO DAILY Atorvastatin Calcium (Atorvastatin Calcium) 80 Mg Tablet 80 MG PO HS Carvedilol (Carvedilol) 6.25 Mg Tablet 6.25 MG PO BIDWM Furosemide (Furosemide) 20 Mg Tab 20 MG PO BID Lisinopril (Lisinopril) 2.5 Mg Tablet 2.5 MG PO DAILY Potassium Chloride (Potassium Chloride) 20 Meq Tab.er.prt 20 MEQ PO DAILY Objective Findings Exam Vital Sign - Last Date Time Temp Pulse Resp B/P Pulse Ox O2 Delivery O2 Flow Rate FiO2 03/23/17 11:50 77 18 94 Room Air 03/23/17 07:45 36.6 101/59 2.00 Intake and Output 03/22/17 03/22/17 03/23/17 Cumulative From/Thru 15:00 23:00 07:00 03/21/17 01:32 - 03/23/17 05:05 Intake Total 820 ml 226 ml 2758 ml Output Total 1760 ml 800 ml 5565 ml Balance -940 ml -574 ml -2807 ml Intake Oral 820 ml 226 ml 2244 ml IV Total 514 ml Output Urine Total 1760 ml 800 ml 5565 ml # Voids 1 1 # Bowel Movements 0 0 Objective Thin gentleman lying in bed, oriented and appropriate. Vital signs noted. Skin warm and dry. Head and neck exam without acute focal findings. Lungs clear anterolaterally, heart sounds regular, abdomen soft and without tenderness or peritoneal signs Lab/Diagnostics Lab and Imaging results reviewed in detail in EMR. Time spent Total time 60 minutes; >50% face to face with patient, providing counselling regarding plans and recommendations, and in care coordination with his medical teams. Of the above total time, 30 minutes counseling for advanced care planning with the patient Pavel Busby MD Mar 23, 2017 14:05 What is quality of life for the patient: to be able to interact with their loved ones and friends, to travel, not to be bedbound, to be independent in taking care of themselves: Would patient choose quality of life over quantity of life? Would comfort care be more important than being awake and alert? If patient is no longer alert and aware because of their illness, would you choose comfort for them? Palliative Care counselled: Time spent Total time [ ] minutes; >50% face to face with patient and/or family, providing counselling regarding plans and recommendations, and in care coordination with his/her medical teams. I also spent an additional [ ] minutes counseling for advanced care planning with the patient/the patients family/the surrogate decision maker. Pavel Busby MD Mar 23, 2017 14:05
--- NOTE | 2017-03-23 14:27 | NUR ---
Discharge Note Patient discharged, friend here to transport home. IV catheter x 1 removed/asymptomatic. Home prescriptions to be picked up in pharmacy by friend. Discharge instructions discussed/understood by patient/friend. All items gathered, nothing left behind. Patient transported out via wheelchair by MEL[employer] PACKER. Mentation @ baseline, vitals WNL, RA, no c/o sob upon discharge.
== END 2017-03-23 14:05 | disposition home or self-care (01) ==
LOC: SED 01:29 → INTOOBSV 02:35 → PCC 02:35
PROVIDERS: ADMIT Hospitalist; ATTEND Hospitalist
DX: I50.23 Acute on chronic systolic (congestive) heart failure (principal); R06.09 Other forms of dyspnea; I42.0 Dilated cardiomyopathy; I08.1 Rheumatic disorders of both mitral and tricuspid valves; R79.89 Other specified abnormal findings of blood chemistry; F15.10 Other stimulant abuse, uncomplicated; I45.10 Unspecified right bundle-branch block; B19.20 Unspecified viral hepatitis C without hepatic coma; E78.5 Hyperlipidemia, unspecified; Z79.82 Long term (current) use of aspirin; Z79.02 Long term (current) use of antithrombotics/antiplatelets; Z66 Do not resuscitate
CPT/HCPCS: 36415; 71010; 80053; 83735; 84100; 84145; 84484; 85025; 85027; 85730; 87633; 93005; 94640; 94799; 96372; 96374; 96375; 96376; 99285; C8929; G0378; J1644; J1940; J3475; J7613; J7620